=== PATIENT | male | born 1985 | race Caucasian/White ===

== ENCOUNTER 2025-03-18 11:06 | Outpatient (OUT) | payer BC, SELFPAY ==
[2025-03-18 11:27] LABS: Basophils Percent Auto 0.2 % (0.2-2.0); Eosinophils Absolute Auto 0.1 10^3/uL (0.0-0.7); Eosinophils Percent Auto 1.1 % (0.9-7.0); Immature Granulocytes Abs Auto 0.04 10^3/uL (0.00-0.03); Immature Granulocytes Pct Auto 0.3 % (0.0-0.5); Lymphocytes Absolute Auto 2.5 10^3/uL (1.2-3.8); Lymphocytes Percent Auto 20.4 % (20.5-60.0); Mean Corpuscular HGB Conc 34.8 g/dL (29.9-35.2); Mean Corpuscular Hemoglobin 33.3 pg (25.9-34.0); Mean Corpuscular Volume 95.8 fL (80.0-94.0); Mean Platelet Volume 9.1 fL (9.5-13.5); Monocytes Absolute Auto 0.8 10^3/uL (0.3-0.8); Platelet Count 263 10^3/uL (150-450); Red Cell Distribution Width 12.3 % (11.0-15.0); White Blood Count 12.5 10^3/uL (4.0-11.0)
[2025-03-18 11:44] LABS: Estimated Average Glucose 212 mg/dL
[2025-03-18 11:44] LABS: Creatinine Urine Random 418.45 mg/dL (20.00-300.00); Microalbum Creatinine Ratio Ur 14.5 mg/g (0.0-29.9); Microalbumin Urine Random 6.1 mg/dL (<=30.0)
[2025-03-18 11:52] LABS: Alanine Aminotransferase 101 U/L (16-63); Albumin Globulin Ratio 0.8; Albumin Level 3.1 g/dL (3.4-5.0); Alkaline Phosphatase 149 U/L (46-116); Anion Gap 15.3; Aspartate Amino Transferase 108 U/L (15-37); BUN Creatinine Ratio 8.9; Bilirubin Direct 0.1 mg/dL (0.0-0.2); Bilirubin Total 0.4 mg/dL (0.2-1.0); Calcium 8.7 mg/dL (8.5-10.1); Carbon Dioxide 28.4 mmol/L (21.0-32.0); Chloride 100 mmol/L (98-107); Chol HDL Ratio 3.5; Cholesterol 150 mg/dL (<=200); Estimated GFR (African America >60 (>=60 mL/min/1.73m^2); Estimated GFR (Non-African Ame >60 (>=60 mL/min/1.73m^2); Globulin 4.1 g/dL; Glucose 187 mg/dL (74-106); HDL Cholesterol 43 mg/dL (40-60); Potassium 3.7 mmol/L (3.5-5.1); Sodium 140 mmol/L (136-145); Thyroid Stimulating Hormone 2.469 uIU/mL (0.358-3.740); Total Protein 7.2 g/dL (6.4-8.2); Triglycerides 159 mg/dL (<=150); VLDL CHOLESTEROL 31.8 mg/dL
[2025-03-18 12:11] LABS: Prostate Specific Antigen Scrn 2.42 ng/mL (<=4.00)
[2025-03-19 06:38] LABS: Testosterone 264 ng/dL (264-916)
== END 2025-03-18 11:07 | disposition home or self-care (01) ==
LOC: LAB 11:10
PROVIDERS: PCP Family Medicine; Visit Provider Family Medicine
DX: Z00.00 Encounter for general adult medical examination without abnormal findings (principal); E11.65 Type 2 diabetes mellitus with hyperglycemia
CPT/HCPCS: 36415; 80048; 80061; 80076; 82043; 82570; 83036; 84403; 84443; 85025; G0103

== ENCOUNTER 2025-06-21 15:02 | Inpatient (IN) | payer BC, SELFPAY ==
--- OUTSIDE RECORDS SUMMARY | 2025-06-12 11:00 | XMS_ITS | Continuity of Care Document ---
Author Organization [facility] Address [address] [place] [address] Phone Care Team Providers Care Director [employer] Name Role Phone Lloyd Mason MD Primary Care Provider Lloyd Mason MD Attending Provider Care Teams Patient Care Team Team Status: Active Member Role Status Dates Lloyd Mason MD Primary Care Provider Active Patient Care Team Team Status: Inactive Member Role Status Dates Lloyd Mason MD Primary Care Provider Active S tart: June 12, 2025 End: June 12, 2025 Lloyd Mason MD Attending Provider Active Star t: June 12, 2025 End: June 12, 2025 Chief Complaint and Reason for Visit Chief Complaint Admit Date Established Patient June 12, 2025 1:37pm Reason for Visit Admit Date Benign essential hypertension June 12, 2025 1:37pm Class 1 obesity due to exces s calories with serious comorbidity and body ma June 12, 2025 1:37pm Hypersomnia June 12, 2025 1:37pm Type 2 diabetes mellitus wit h diabetic neuropathy, without long-term curren June 12, 2025 1:37pm Type 2 diabetes mellitus wit h hyperglycemia, without long-term current use June 12, 2025 1:37pm Allergies, Adverse Reactions, Alerts Allergen Type Severity Reaction Last Updated Verified Status lisinopril Allergy Unknown Cough June 12, 2025 1:02pm Y es Active Social History Smoking Status Status Start Date End Date Date of Observa tion Smokes tobacco daily (finding) June 12, 2025 2:18pm Observation Status Observation Response Date of Response Legal Sex Male (finding) Sex Assigned At Male December Family History Relationship Condition Age at Onset Recorded Date/T tamara mother Malignant neoplasm Unknown Problems Active Problems Medical Problem Onset Date Status Benign essential hypertension Unknown Ac tive Dyslipidemia Unknown Active Hypersomnia Unknown Active Type 2 diabetes mellitus wit h diabetic neuropathy, without long-term current use of insulin Unknown Active Type 2 diabetes mellitus wit h microalbuminuria, without long-term current use of insulin Unknown Active Type 2 diabetes mellitus wit h hyperglycemia, without long-term current use of insulin Unknown Active Class 1 obesity due to exces s calories with serious comorbidity and body mass index (BMI) of 32.0 to 32.9 in adult Unknown Active Medications Medication Status Dose Units Route Directions Qty Days St art Date Stop Date End Date Instructions Adherence Losartan 50 mg tablet Active 50 MG PO Daily 2024 12:00a m Complies with drug therapy Sildenafil 50 mg tablet Active 50 MG PO Daily as needed 2024 12:00a m administer 30 minutes to 4 hours before activity Complies with drug therapy Glipizide 10 mg tablet Active 10 MG PO Daily 2024 12:00a m Complies with drug therapy Blood Sugar Diagnostic (Blood Glucose Test) strip Active 0 .ROUTE 2024 12:00a m As directed, check Bs once daily One Touch Ultra 2 Lancets misc Active 0 .ROUTE 2024 12:00a m As directed, One Touch Ultra 2, check BS once daily Blood Ketone Glucose Monitor device Active 0 .ROUTE 2024 12:00a m As directed, One Touch Ultra 2, check BS once daily Semaglutide (Ozempic) 0.25 mg or 0.5 mg (2 mg/3 mL) pen injector Active 0 SUBCUT every week 3 2024 12:00a m 0.25 mg weekly x 4 weeks, 0.5 mg weekly Complies with drug therapy Gabapentin 300 mg capsule Active 300 MG PO Daily at bedtime 30 2024 12:00a m Complies with drug therapy Vital Signs Vital Reading Result Reference Range Collection Date/Time Height 70 [in_i] June 12, 2025 2:12pm Weight 103.13 kg June 12, 2025 2:12pm Body Temperature 98.1 [degF] 97.6-99.0 May 232024 2:12pm Heart Rate 102 /min 60-100 June 12, 2025 2:12pm Respiratory rate 18 /min 12-24 May 232024 2:12pm Oxygen saturation by Pulse oximetry 96 % 95-100 June 12, 2025 2:12pm BP Systolic 134 mm[Hg] 100-140 June 12, 2025 2:12pm BP Diastolic 80 mm[Hg] 60-100 June 12, 2025 2:12pm BMI (Body Mass Index) 32.6 kg/m2 Sept2024 2:12pm Advance Directives Advance Directive Response Recorded Date/ Time Advance Directives No August 7:33pm Insurance Providers Guarantor Reymundo Patino Address [address] [facility] [address] Contact Info. Home Phone: Payer Policy Id Subscriber's Name Subscriber Id Effectiv e Date Expiration Date Marissa CONTEH/SALVATORE [id number] Reymundo Patino [id number] Encounters Encounter Location(s) Arrival/Admit Date Discharge/Depart Date Provider(s) Departed Physician/Prov ider Office Visit -[facility] June 12, 2025 1:37pm June 12, 2025 2:59pm Lloyd Mason MD Recent Diagnosis Onset Date Admit Date Benign essential hypertension Unknown Se pt2024 1:37pm Class 1 obesity due to exces s calories with serious comorbidity and body ma Unknown June 12, 2025 1 :37pm Hypersomnia Unknown June 12, 2025 1:37pm Type 2 diabetes mellitus wit h diabetic neuropathy, without long-term curren Unknown June 12, 2 025 1:37pm Type 2 diabetes mellitus wit h hyperglycemia, without long-term current use Unknown June 12, 2025 1:3 7pm Assessments Diagnosis Onset Date Resolution Status Admit Date Benign essential hypertension acute June 12, 2025 1:37pm Class 1 obesity due to exces s calories with serious comorbidity and body ma acute 2024 1:37pm Hypersomnia acute May 1:37pm Type 2 diabetes mellitus wit h diabetic neuropathy, without long-term curren acute June 12, 2025 1:37pm Type 2 diabetes mellitus wit h hyperglycemia, without long-term current use acute June 12, 2025 1:37pm
[2025-06-21] VITALS (42 sets, daily range): BP systolic 92–161; BP diastolic 66–95; PULSE 105–140; TEMP 37–37.4; O2SAT 79–99; BMI 35.4; BMI 31.6
--- NOTE | 2025-06-21 15:07 | XR_ITS ---
The [address] [address] Patient Name: DARIUS WILSON MRN: [id number] date: 1985 Sex: M Assigned Patient Location: ED.MAIN Current Patient Location: ED.MAIN Accession/Order Number: [id number] Exam Date: 06/21/2025 16:15 Report Date: 06/21/2025 16:40 At the request of: VENUS DE LEON MD Procedure: XR chest 1V Plain film chest Single view HISTORY: Shortness of breath. Confusion. COMPARISON: None FINDINGS: SUPPORT DEVICES: None POSTSURGICAL CHANGES: None HEART: Borderline cardiomegaly PULMONARY CYNTHIA: Hilar vascular prominence MEDIASTINUM: Unremarkable LUNGS AND PLEURA: Right upper hilar apical hazy consolidation.. Apical pleural thickening. Right basilar groundglass parenchymal densities. BONY STRUCTURES: Old right rib fractures. ADDITIONAL FINDINGS None XR/XR chest 1V IMPRESSION: Cardiomegaly. Hilar vascular congestion. May represent failure. Hazy opacification of the right suprahilar apical region. Possible infiltrate. Underlying lesion not excluded. Loculated fluid collection may also be present. CT chest may be useful to further assess. Impression dictated by: Lee Slaughter M.D. 06/21/2025 4:40 PM Dictation Location[facility] Electron[facility] authenticated by: [id number] Y Date: 06/21/2025 16:40
--- NOTE | 2025-06-21 15:07 | ECG_ITS ---
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 Measurements Intervals [place] Rate: 129 P: 61 AL: 158 QRS: 84 QRSD: 90 T: 17 QT: 342 QTc: 418 Interpretive Statements 1120 Sinus tachycardia 4664 Twave abnormality, possible inferior ischemia 9150 abnormal ECG Compared to ECG 12/20/2017 07:00:50 Possible ischemia now present Electronically Signed On 06-21-2025 19:10:52 EDT by CORRY FERNANDES M.D.
[2025-06-21] MEDS: IPRATROPIUM/ALBUTEROL SULFATE 3 ML AMPUL.NEB IH ×2 (15:33→20:23)
[2025-06-21 15:37] LABS: Hematocrit 37.1 % (42.0-54.0); Hemoglobin 13.6 g/dL (14.0-18.0); Mean Corpuscular HGB Conc 36.7 g/dL (29.9-35.2); Mean Corpuscular Hemoglobin 33.4 pg (25.9-34.0); Mean Corpuscular Volume 91.2 fL (80.0-94.0); Platelet Count 198 10^3/uL (150-450); Red Blood Count 4.07 10^6/uL (4.70-6.10); White Blood Count 21.8 10^3/uL (4.0-11.0)
[2025-06-21 15:38] LABS: ABG PCO2 39.2 mmHg (35.0-45.0); PO2 ABG 81.8 mmHg (80.0-100.0)
[2025-06-21 15:39] LABS: Allen Test POSITIVE (POSITIVE); HCO3 ABG 23.5 mmol/L (22.0-26.0); Oxygen Saturation ABG 97.3 %
[2025-06-21 15:40] LABS: Liters per Minute 6; O2 Mode NC; Puncture Site LR
[2025-06-21 15:44] LABS: INR 1.15; Prothrombin Time 12.0 sec (9.0-11.6)
[2025-06-21 15:57] LABS: Alanine Aminotransferase 84 U/L (16-63); Albumin Globulin Ratio 0.3; Albumin Level 1.7 g/dL (3.4-5.0); Alkaline Phosphatase 126 U/L (46-116); Anion Gap 17.5; Aspartate Amino Transferase 168 U/L (15-37); Blood Urea Nitrogen 40.0 mg/dL (7.0-18.0); Calcium 8.1 mg/dL (8.5-10.1); Carbon Dioxide 23.7 mmol/L (21.0-32.0); Estimated GFR (African America >60 (>=60 mL/min/1.73m^2); Estimated GFR (Non-African Ame >60 (>=60 mL/min/1.73m^2); Globulin 5.6 g/dL; Glucose 199 mg/dL (74-106); Lactate/Lactic Acid 1.8 mmol/L (0.4-2.0); Potassium 3.2 mmol/L (3.5-5.1); Total Protein 7.3 g/dL (6.4-8.2)
[2025-06-21 16:01] LABS: Chloride 83 mmol/L (98-107); Sodium 121 mmol/L (136-145)
[2025-06-21 16:02] LABS: SARS-CoV-2 Ag NEGATIVE (NEGATIVE)
[2025-06-21 16:05] LABS: Glucose Urine UA NEGATIVE (NEGATIVE)
--- OUTSIDE RECORDS SUMMARY | 2025-06-21 16:05 | XMS_ITS | Encounter Summary ---
Author Organization [facility] Address [address] [place] [address] Care Team Providers Care Railroad Surveyor Name Role Phone Lloyd Mason MD Primary Care Provider [phone] Lloyd Mason MD Unavailable Encounter Details Date Type Department Care Team (Late st Contact Info) Description 03/20/2025 Results Follow-Up [facility] [address] [place] [address] Lloyd Mason MD [address] [place] [address] ALL CBC WITH AUTO DIFF, MLR HEMOGLOBIN A1C, TBH MICROALB CREAT RATIO RANDOM, Additional followed-up results: 6 Social History Tobacco Use Types Packs/Day Years Used Date Smoking Tobacco: Every Day Cigarettes 0.5 10 Smokeless Tobacco: Never Alcohol Use Standard Drinks/Week Comments Yes 0 (1 standard drink = 0.6 oz pur e alcohol) OCCASSIONALLY Sex and Gender Information Value Date Recorded Sex Assigned at Not on file Legal Sex Male 2:29 PM EDT Gender Identity Not on file Sexual Orientation Not on file documented as of this encounter Plan of Treatment Scheduled Orders Name Type Priority Associated Diagnoses Orde r Schedule US RUQ Imaging Routine Abnormal liver enzymes Expected: 03/20/2025, Expires: 03/20/2026 documented as of this encounter Visit Diagnoses Diagnosis Type 2 diabetes mellitus with hyperglycemia, without long-term current use of insulin (HCC)- Primary Abnormal liver enzymes documented in this encounter Care Teams Railroad Surveyor Relationship Specialty Start Date End Date Lloyd Mason MD PCP - General Family Medicine 10/19/24 Lloyd Mason MD [address] [place] [address] PCP - [place] [employer] 03/21/25 documented as of this encounter
--- OUTSIDE RECORDS SUMMARY | 2025-06-21 16:05 | XMS_ITS | Clinical Summary ---
Author Organization [facility] Address [address] [place] [address] Care Team Providers Care Strip Presser Name Role Phone Lloyd Mason MD Primary Care Provider [phone] Lloyd Mason MD Unavailable Allergies Active Allergy Reactions Criticality Noted Date Comments Lisinopril Cough 08/19/2023 Medications naproxen (EC Naprosyn) 500 MG EC tablet Take 500 mg by mouth in the morning and 500 mg in the evening. Take with meals. Do not crush, chew, or split. . Active Blood Glucose Monitoring Suppl device 1 Device 1 (one) time each day. Active OneTouch Ultra test strip USE 1 STRIP DAILY 2 Active Lancets (OneTouch Delica Plus [id number]) misc USE ONCE DAILY 2 Active Blood Glucose Monitoring Suppl (ONE TOUCH ULTRA 2) w/Device kit 1 (ONE) KIT CHECK BLOOD GLUCOSE DAILY 2 Active glipiZIDE (Glucotrol) 10 MG tabletIndications :Type 2 diabetes mellitus with hyperglycemia, without long-term current use of insulin (HCC) Take 1 tablet (10 mg) by mouth Daily 30 tablet 5 5 Active losartan (Cozaar) 50 MG tabletIndications :Primary hypertension Take 1 tablet (50 mg) by mouth Daily 100 tablet 1 5 10/28/19 26 Active sildenafil (Viagra) 50 MG tabletIndications :Erectile dysfunction, unspecified erectile dysfunction type TAKE 1 TABLET (50 MG) BY MOUTH DAILY 30 tablet 2 5 Active Active Problems Problem Noted Date Diagnosed Date Type 2 diabetes mellitus wit h diabetic microalbuminuria, without long-term current use of insulin 03/20/2025 Dyslipidemia 02/02/2025 Hypersomnia 02/02/2025 Assessment & Plan (02/02/2025 3:25 PM EDT): Signs of VERONA and check sleep study. Primary hypertension 08/19/2023 Assessment & Plan (02/02/2025 3:25 PM EDT): BP controlled and monitor PRN. Assessment & Plan (08/19/2023 4:27 PM EST): BP well controlled. On average less than 130/90. Tolerating Anti hypertensive w/o adverse effects. Denies lightheadedness, dizziness, syncope, presyncope. Patient encouraged to continue with home BP monitoring and call office if he experiences orthostatic symptoms or persistently elevated BP. C.w Losartan, Check CMP to ensure potassium/creatinine is normal Type 2 diabetes mellitus wit h hyperglycemia, without long-term current use of insulin 08/19/2023 Assessment & Plan (02/02/2025 3:25 PM EDT): Not checking BS and due for A1C. Stick to ADA diet and limit carbs. Assessment & Plan (08/19/2023 4:30 PM EST): On Metformin. No recent labs or A1C as he did not get his labs done. No medication adverse effects reported by the patient. Patient educated on lifestyle modifications, dietary restrictions, signs and symptoms of hypoglycemia/hyperglycemia and importance of eating regular consistent meals. Stressed upon importance of checking blood glucose at home and bring blood glucose log to appointments. All questions, concerns answered and addressed. Encouraged to call office if persistent hypoglycemia/hyperglycemia on home glucose monitoring noted. Patient will be started on Rybelsus 3mg -samples provided. Patient counseled and educated on adverse effects, drug interactions and to reach out to office/pharmacy if questions or concerns related to new medications. Will call in 7 mg PO daily dosing from 2nd month. Starting on SGLT2 due to accompanying obesity to help with weight loss. Patient is afraid of needles and would prefer PO medication rather than injectable. Class 1 obesity due to exces s calories with body mass index (BMI) of 30.0 to 30.9 in adult 08/19/2023 Assessment & Plan (02/02/2025 3:24 PM EDT): Weight loss indicated. Assessment & Plan (08/19/2023 4:38 PM EST): Patient educated on risks of increased cardiovascular morbidity/mortality and poor health outcomes associated with unhealthy bodyweight. Patient counseled on lifestyle modifications, dietary restrictions. Patient encouraged to limit caloric intake and increase physical activity. Therapeutic and surgical options reviewed with patient . Patient was offered opportunity to ask questions and address their concern. He will be started on Rybelsus to help with weight loss Abnormal liver enzymes 08/19/2023 Assessment & Plan (08/19/2023 4:31 PM EST): Abnormal liver enzymes - AST/ALT in 200 previously when he had labs but follow up testing and labs were not done by patient. Will check Liver enzymes to monitor/ and follow up. US liver in 22 -- NAFLD. Tobacco dependency 08/19/2023 Assessment & Plan (08/19/2023 4:32 PM EST): Patient counseled on smoking/tobacco cessation. Patient educated on harmful effects of smoking cigarettes/tobacco including increased risk of cardiovascular diseases, chronic lung disease and multiple cancers. Patient was educated and informed of different behavioral and therapeutic interventions that can help with smoking/tobacco use. Patient's questions/concerns were addressed and answered related to therapeutic options. Patient was offered help and encouraged to reach out to provider if/when they are ready to quit. Started on Nicotine patches/lozenges. A total of over 3 minutes and up to 10 minutes were spent on Smoking/Tobacco use counseling. Annual physical exam 08/19/2023 Assessment & Plan (02/02/2025 3:24 PM EDT): Due for labs. Discussed proper diet and regular aerobic exercise. Need aerobic exercise 5-6 days a week for 30 minutes at a time. Smaller portions and limit total calories. Colonoscopy after age 45. Tetanus every 10 years. Advised not to smoke. Assessment & Plan (08/19/2023 4:33 PM EST): Annual Wellness Exam - Refused Flu vaccine. Too young for Colon Cancer/Prostate or lung cancer screening Educated/counseled on smoking cessation, lifestyle modifications. Screen for HLD - has hx of T2DM, obesity. Erectile dysfunction 08/19/2023 Assessment & Plan (08/19/2023 4:33 PM EST): Uses viagra as needed. Works well for him. C/w same. Resolved Problems Problem Noted Date Diagnosed Date Resolved Date Screening for hyperlipidemia 08/19/2023 02/02/2025 Assessment & Plan (08/19/2023 4:30 PM EST): Patient educated on risks of increased cardiovascular morbidity/mortality and poor health outcomes associated with unhealthy bodyweight. Patient counseled on lifestyle modifications, dietary restrictions. Patient encouraged to limit caloric intake and increase physical activity. Therapeutic and surgical options reviewed with patient . Patient was offered opportunity to ask questions and address their concern. Started on Rybelsus that should help with weight loss too. Encounters Date Type Department Care Team Description 04/21/2025 Refill [facility] [address] [place] [address] Lloyd Mason MD Erectile dysfunction, unspecified erectile dysfunction type 04/11/2025 Refill [facility] [address] [place] [address] Lloyd Mason MD Primary hypertension from Last 3 Months Family History Medical History Relation Name Comments Diabetes Father Cancer Mother Relation Name Status Comments Father Alive Mother Alive Social History Tobacco Use Types Packs/Day Years Used Date Smoking Tobacco: Every Day Cigarettes 0.5 10 Smokeless Tobacco: Never Tobacco Cessation:Ready to Q uit: Yes; Counseling Given: Yes Alcohol Use Standard Drinks/Week Comments Yes 0 (1 standard drink = 0.6 oz pur e alcohol) OCCASSIONALLY Sex and Gender Information Value Date Recorded Sex Assigned at Not on file Legal Sex Male 2:29 PM EDT Gender Identity Not on file Sexual Orientation Not on file Last Filed Vital Signs Vital Sign Reading Time Taken Comments Blood Pressure 138/66 02/02/2025 1:26 PM EDT Pulse 113 02/02/2025 1:26 PM EDT Temperature 36.2 C (97.1 F) 02/02/2025 1:26 PM EDT Respiratory Rate 20 02/02/2025 1:26 PM EDT Oxygen Saturation 96% 02/02/2025 1:26 PM EDT Inhaled Oxygen Concentration - - Weight 97.5 kg (215 lb) 02/02/2025 1:26 PM EDT Height 177.8 cm (5' 10 ) 02/02/2025 1:26 PM EDT Body Mass Index 30.85 02/02/2025 1:26 PM EDT Plan of Treatment Health Maintenance Due Date Last Done Comments Diabetes: Hemoglobin A1C 1985 Diabetes: Retinopathy Screening 1993 Influenza Vaccine (#1) 2025 Diabetes: Urine Protein Screening 03/18/2026 025 Insurance BCBS Care Teams Strip Presser Relationship Specialty Start Date End Date Lloyd Mason MD PCP - General Family Medicine 10/19/24 Lloyd Mason MD [address] [place] [address] PCP - [place] [employer] 03/21/25
--- OUTSIDE RECORDS SUMMARY | 2025-06-21 16:05 | XMS_ITS | Encounter Summary ---
Author Organization [facility] Address [address] [place] [address] Care Team Providers Care Furnace Tender Name Role Phone Lloyd Mason MD Primary Care Provider [phone] Lloyd Mason MD Unavailable Encounter Details Date Type Department Care Team (Late st Contact Info) Description 03/20/2025 Orders Only [facility] [address] [place] [id number] Lloyd Mason MD [address] [place] [address] Social History Tobacco Use Types Packs/Day Years [...] as of this encounter Plan of Treatment Not on file documented as of this encounter Visit Diagnoses Not on filedocumented in this encounter Care Teams Furnace Tender Relationship Specialty Start Date End Date Lloyd Mason MD PCP - General Family Medicine 10/19/24 Lloyd Mason MD [address] [place] [address] PCP - [place] [employer] 03/21/25 documented as of this encounter
[2025-06-21 16:06] LABS: Basophils Abs Manual 0.00 10^3/uL (0.00-0.10); Basophils Percent Manual 0.0 % (0.2-2.0); Eosinophils Absolute Manual 0.00 10^3/uL (0.00-0.70); Eosinophils Percent Manual 0.0 % (0.9-7.0); Lymphocytes Absolute Manual 0.43 10^3/uL (1.20-3.80); Lymphocytes Percent Manual 2.0 % (20.5-60.0); Monocytes Absolute Manual 0.87 10^3/uL (0.30-0.80); Monocytes Percent Manual 4.0 % (1.7-12.0); Segmented Neut Absolute Manual 20.49 10^3/uL (1.4-6.5); Segmented Neutrophils % Manual 94.0 (43.0-75.0)
[2025-06-21 16:17] LABS: Cast Seen? SEEN #/LPF (NONE SEEN); Crystals Seen? Seen #/HPF (None Seen)
[2025-06-21 16:18] LABS: Urine Culture Indicated YES-FRMC
--- NOTE | 2025-06-21 16:46 | CT_ITS ---
The [address] [address] Patient Name: DARIUS WILSON MRN: [id number] date: 1985 Sex: M Assigned Patient Location: ER Current Patient Location: .MAIN Accession/Order Number: [id number] Exam Date: 06/21/2025 17:05 Report Date: 06/21/2025 17:49 At the request of: VENUS DE LEON MD Procedure: CT angio chest Unenhanced head CT TECHNIQUE: Contiguous axial imaging of the head. The CT exam was performed using one or more the following dose reduction techniques: Automated exposure control, adjustment of the MA and/or Kv according to patient size, or use of the iterative reconstruction technique. COMPARISON: None HISTORY: Shortness of breath. Confusion. VENTRICLES: Within normal limits ATROPHY: None BRAIN PARENCHYMA: Adequate whyte-white matter differentiation identified. HEMORRHAGE: None HERNIATION: No mass effect or herniation INFARCTION: No recent vascular distribution infarction is seen. EXTRA-AXIAL FLUID COLLECTIONS None MIDBRAIN: Unremarkable ALONDRA: Unremarkable MEDULLA: Unremarkable SINUSES: Unremarkable ORBITS: Grossly unremarkable MASTOIDS: Unremarkable BONY STRUCTURES Intact ADDITIONAL FINDINGS: Low-density defect identified in the posterior portion of the superior sagittal sinus. This should be assessed for thrombus. CT/CT angio chest IMPRESSION: Hypodensity defect identified in the posterior portion of superior sagittal sinus. Assessment for thrombus should be considered. May consider contrasted MRI with MRV. Impression dictated by: Lee Slaughter M.D. 06/21/2025 5:49 PM CTA Chest with PE protocol TECHNIQUE: Axial imaging with 2-D and 3-D reconstruction. The CT exam was performed using one or more the following dose reduction techniques: Automated exposure control, adjustment of the MA and/or Kv according to patient size, or use of the iterative reconstruction technique. History: Shortness of breath. Hypoglycemia. COMPARISON: None THYROID: Unremarkable TRACHEA AND BRONCHI: Patent ESOPHAGUS: Unremarkable. HEART: Borderline prominent with large amount of epicardial fat. PERICARDIAL EFFUSION: None CORONARY ARTERY CALCIFICATION: None MEDIASTINUM: Mildly prominent right paratracheal lymph nodes. PULMONARY CYNTHIA: Mildly prominent right hilar lymph nodes. THORACIC AORTA Unremarkable PULMONARY EMBOLUS: None LUNG NODULE None LUNGS: Large amount of consolidation throughout the right upper lobe. Minimal foci of air in the periphery. May correspond with subpleural bullous/cystic changes. Adequate opacification of bronchi. No obvious fluid collection or mass type lesion. Groundglass parenchymal densities of the right middle and right lower lobe. Groundglass type densities of the left perihilar and left basilar region. PLEURAL EFFUSION: None PNEUMOTHORAX: No pneumothorax seen. CHEST WALL: No abnormality AXILLA: Unremarkable BONY STRUCTURES Intact UPPER ABDOMEN: Hepatic steatosis. IMPRESSION: No acute pulmonary embolus. Right upper lobe are infiltrate. Focal infiltrate in the right middle and right lower lobe and the perihilar and basilar region. Right paratracheal and right hilar lymphadenopathy likely reactive. Continued follow-up assessment to ensure resolution recommended. Dictation Location: [employer] Electronically authenticated by: [id number] Y Date: 06/21/2025 17:49
--- NOTE | 2025-06-21 16:46 | CT_ITS ---
The [address] [address] Patient Name: DARIUS WILSON MRN: [id number] date: 1985 Sex: M Assigned Patient Location: ER Current Patient Location: .MAIN Accession/Order Number: [id number] Exam Date: 06/21/2025 17:05 Report Date: 06/21/2025 17:49 At the request of: VENUS DE LEON MD Procedure: CT angio chest Unenhanced head CT TECHNIQUE: Contiguous axial imaging of the head. The CT exam was performed using one or more the following dose reduction techniques: Automated exposure control, adjustment of the MA and/or Kv according to patient size, or use of the iterative reconstruction technique. COMPARISON: None HISTORY: Shortness of breath. Confusion. VENTRICLES: Within normal limits ATROPHY: None BRAIN PARENCHYMA: Adequate whyte-white matter differentiation identified. HEMORRHAGE: None HERNIATION: No mass effect or herniation INFARCTION: No recent vascular distribution infarction is seen. EXTRA-AXIAL FLUID COLLECTIONS None MIDBRAIN: Unremarkable ALONDRA: Unremarkable MEDULLA: Unremarkable SINUSES: Unremarkable ORBITS: Grossly unremarkable MASTOIDS: Unremarkable BONY STRUCTURES Intact ADDITIONAL FINDINGS: Low-density defect identified in the posterior portion of the superior sagittal sinus. This should be assessed for thrombus. CT/CT head/brain wo con IMPRESSION: Hypodensity defect identified in the posterior portion of superior sagittal sinus. Assessment for thrombus should be considered. May consider contrasted MRI with MRV. Impression dictated by: Lee Slaughter M.D. 06/21/2025 5:49 PM CTA Chest with PE protocol TECHNIQUE: Axial imaging with 2-D and 3-D reconstruction. The CT exam was performed using one or more the following dose reduction techniques: Automated exposure control, adjustment of the MA and/or Kv according to patient size, or use of the iterative reconstruction technique. History: Shortness of breath. Hypoglycemia. COMPARISON: None THYROID: Unremarkable TRACHEA AND BRONCHI: Patent ESOPHAGUS: Unremarkable. HEART: Borderline prominent with large amount of epicardial fat. PERICARDIAL EFFUSION: None CORONARY ARTERY CALCIFICATION: None MEDIASTINUM: Mildly prominent right paratracheal lymph nodes. PULMONARY CYNTHIA: Mildly prominent right hilar lymph nodes. THORACIC AORTA Unremarkable PULMONARY EMBOLUS: None LUNG NODULE None LUNGS: Large amount of consolidation throughout the right upper lobe. Minimal foci of air in the periphery. May correspond with subpleural bullous/cystic changes. Adequate opacification of bronchi. No obvious fluid collection or mass type lesion. Groundglass parenchymal densities of the right middle and right lower lobe. Groundglass type densities of the left perihilar and left basilar region. PLEURAL EFFUSION: None PNEUMOTHORAX: No pneumothorax seen. CHEST WALL: No abnormality AXILLA: Unremarkable BONY STRUCTURES Intact UPPER ABDOMEN: Hepatic steatosis. IMPRESSION: No acute pulmonary embolus. Right upper lobe are infiltrate. Focal infiltrate in the right middle and right lower lobe and the perihilar and basilar region. Right paratracheal and right hilar lymphadenopathy likely reactive. Continued follow-up assessment to ensure resolution recommended. Dictation Location: [facility] Electronically authenticated by: [id number] Y Date: 06/21/2025 17:49
[2025-06-21] MEDS: PIPERACILLIN SODIUM/TAZOBACTAM 4.5 GM in 0.9 % SODIUM CHLORIDE 50 ML IV (17:19)
--- NOTE | 2025-06-21 17:29 | ED_ITS ---
HPI - SOB/Dyspnea General Chief Complaint: Shortness of Breath/Dyspnea Stated Complaint: POSSIBLE STROKE Time Seen by Provider: 06/21/25 15:07 Source: patient Mode of arrival: Wheelchair History of Present Illness HPI Narrative: The patient have history of hypertension as well as history of smoking cigarettes is presenting to us after he has been having for the last few days nausea vomiting diarrhea and then exacerbated over the last 2 days with shortness of breath and cough, the patient actively wheezing upon arrival using accessory muscles and hypoxemic at 85% on room air The patient denies any chest pain denies any abdominal pain no nausea or vomiting right now all the symptoms resolved except for the shortness of breath Patient have a history of smoking cigarettes He was brought to us because the mother noted that the patient has not been answering appropriately question as possibly being confused since yesterday Related Data Home Medications ?Medication ?Instructions ?Recorded ?Confirmed gabapentin 300 mg capsule 300 mg PO .qhs 06/21/2510/15 losartan 50 mg tablet 50 mg PO DAILY 06/21/2510/15 Allergies Allergy/AdvReac Type Severity Reaction Status Date / Time No Known Drug Allergies Allergy Verified 06/21/25 15:11 Review of Systems ROS Status of ROS 10 or more systems reviewed and unremark able except as noted in history and below [facility] Medical History (Updated 06/21/25 @ 18:37 by Mariola Sullivan RN) High blood pressure ?I10 - Essential (primary) hypertension (ICD-10) Diabetes ?E11.9 - Type 2 diabetes mellitus without complications (ICD-10) Exam Narrative Exam Narrative: Nurses notes and vital signs reviewed and patient is not hypoxic. General: Dehydrated mild distress due to shortness of breath Skin: Warm, dry, no pallor noted. No rash. Head: Normocephalic, atraumatic. Cardiovascular: Regular Rate and Rhythm without murmur, gallop or rub. Respiratory: The patient have bilateral expiratory lung wheezing to both lung stewart Back: No midline thoracic or lumbar vertebral tenderness. No CVA tenderness Musculoskeletal: normal ROM, no calf or popliteal tenderness, no lower extremity edema/swelling GI: Abdomen is soft, non-distended. Normal bowel sounds. No masses appreciated. No tenderness to palpation. No rebound, guarding, or rigidity noted. Neurological: A&O x4. No cranial nerve dysfunction observed. No truncal ataxia. Moves all extremities. Sensation intact. Psychiatric: Cooperative and interactive. Normal mood and affect. Constitutional Vital Signs, click to edit/add: Last Vital Signs Temp 98.7 F 06/21/25 15:05 Pulse 131 H 06/21/25 18:00 Resp 24 H 06/21/25 18:00 BP 133/75 06/21/25 18:00 Pulse Ox 96 06/21/25 18:00 O2 Del Method Nasal Cannula 06/21/25 15:34 O2 Flow Rate 6 06/21/25 15:34 FiO2 50 06/21/25 16:57 Course Vital Signs Vital signs: Vital Signs Temperature 98.7 F 06/21/25 15:05 Pulse Rate 110 H 06/21/25 15:05 Respiratory Rate 28 H 06/21/25 15:05 Blood Pressure 116/73 06/21/25 15:05 Pulse Oximetry 80 L 06/21/25 15:05 Oxygen Delivery Method Room Air 06/21/25 15:05 Temperature 98.7 F 06/21/25 15:05 Pulse Rate 131 H 06/21/25 18:00 Respiratory Rate 24 H 06/21/25 18:00 Blood Pressure 133/75 06/21/25 18:00 Pulse Oximetry 96 06/21/25 18:00 Oxygen Delivery Method Nasal Cannula 06/21/25 15:34 Oxygen Delivery Flow Rate 6 06/21/25 15:34 Fraction of Inspired Oxygen 50 06/21/25 16:57 MDM - SOB/Dyspnea MDM Narrative Medical decision making narrative: The patient EKG in the ER showing sinus tachycardia with a heart rate of 129 initially as well as 132 repeated twice to make sure there is no EKG changes there is some T wave inversion lead III No ST elevation The patient chest x-ray showed definite bilateral infiltrate most pronounced on the right side and the patient blood workup confirmed that with a CBC that is elevated at 21.8 the patient also had a hyponatremia with a 121 sodium 3.2 potassium as well as a chloride of 83 the blood sugar was 199 Patient ABGs which was at pH of 7.38 pCO2 with 39 pO2 was 81 on 6 L nasal cannula The patient initially was started back on Zosyn to cover for pneumonia after obtaining blood culture he also was covered for COPD with Solu-Medrol as well as DuoNeb The patient also placed on CPAP initially due to the concern of possible congestion and the fact that the patient have bilateral infiltrate CT angio of the chest showed no PE but the patient have bilateral infiltrate and right now the patient was provided with IV fluid 2 L IV normal saline The patient troponin initially was 190 the second troponin was 153 and he does not have any chest pain or any significant EKG changes concerning for acute coronary syndrome The patient placed on the Vapotherm after initially was on CPAP The patient case was discussed with and he agreed on admitting the patient for further evaluation Lab Data Labs: Lab Results 06/21/25 06/21/25 06/21/25 Range/Units 15:10 15:13 15:15 WBC 21.8 H (4.0-11.0) 10^3/uL RBC 4.07 L (4.70-6.10) 10^6/uL Hgb 13.6 L (14.0-18.0) g/dL Hct 37.1 L (42.0-54.0) % MCV 91.2 (80.0-94.0) fL MCH 33.4 (25.9-34.0) pg MCHC 36.7 H (29.9-35.2) g/dL RDW 12.3 (11.0-15.0) % Plt Count 198 (150-450) 10^3/uL MPV 11.2 (9.5-13.5) fL Seg Neuts % (Manual) 94.0 H (43.0-75.0) Lymphocytes % (Manual) 2.0 L (20.5-60.0) % Monocytes % (Manual) 4.0 (1.7-12.0) % Eosinophils % (Manual) 0.0 L (0.9-7.0) % Basophils % (Manual) 0.0 L (0.2-2.0) % Neutrophils # (Manual) 20.49 H (1.4-6.5) 10^3/uL Lymphocytes # (Manual) 0.43 L (1.20-3.80) 10^3/uL Monocytes # (Manual) 0.87 H (0.30-0.80) 10^3/uL Eosinophils # (Manual) 0.00 (0.00-0.70) 10^3/uL Basophils # (Manual) 0.00 (0.00-0.10) 10^3/uL PT 12.0 H (9.0-11.6) sec INR 1.15 Puncture Site ABG pH (7.350-7.450) ABG pCO2 (35.0-45.0) mmHg ABG pO2 (80.0-100.0) mmHg ABG HCO3 (22.0-26.0) mmol/L ABG O2 Saturation % ABG Base Excess (-2.0-2.0) mmol/L Nacho Test (POSITIVE) O2 Liters/Min Sodium 121 L* (136-145) mmol/L Potassium 3.2 L (3.5-5.1) mmol/L Chloride 83 L* (98-107) mmol/L Carbon Dioxide 23.7 (21.0-32.0) mmol/L Anion Gap 17.5 BUN 40.0 H (7.0-18.0) mg/dL Creatinine 1.20 (0.70-1.30) mg/dL Est GFR ( Amer) >60 (>=60 mL/min/1.73m^2) Est GFR (Non-Af Amer) >60 (>=60 mL/min/1.73m^2) BUN/Creatinine Ratio 33.3 Glucose 199 H (74-106) mg/dL Lactate 1.8 (0.4-2.0) mmol/L Calcium 8.1 L (8.5-10.1) mg/dL Total Bilirubin 0.6 (0.2-1.0) mg/dL AST 168 H (15-37) U/L ALT 84 H (16-63) U/L Alkaline Phosphatase 126 H (46-116) U/L Troponin I High Sens 169.1 H* (4.0-76.1) pg/mL NT-Pro-B Natriuret Pep 1334.0 H* (<=450.0) pg/mL Total Protein 7.3 (6.4-8.2) g/dL Albumin 1.7 L (3.4-5.0) g/dL Globulin 5.6 g/dL Albumin/Globulin Ratio 0.3 Urine Color (YELLOW) Urine Clarity (CLEAR) Urine pH (5.0-9.0) Ur Specific Marshall (1.005-1.025) Urine Protein (NEG/TRACE) mg/dL Urine Glucose (UA) (NEGATIVE) mg/dL Urine Ketones (NEGATIVE) mg/dL Urine Occult Blood (NEGATIVE) Urine Nitrite (NEGATIVE) Urine Bilirubin (NEGATIVE) Urine Urobilinogen (0.2-1.0) EU/dL Ur Leukocyte Esterase (NEGATIVE) Urine RBC (0-2) #/HPF Urine WBC (NONE SEEN) #/HPF Ur Squamous Epith Cells (NONE/RARE) #/LPF Urine Crystals (None Seen) #/HPF Amorphous Sediment Urine Bacteria (NONE SEEN) #/HPF Urine Casts (NONE SEEN) #/LPF Hyaline Casts Coarse Granular Casts Urine Mucus (NONE SEEN) Ur Culture Indicated? Ethanol Quant <3 mg/dL Influenza Type A Ag Negative Influenza Type B Ag Negative SARS-CoV-2 Ag (CV2AG) Negative (NEGATIVE) POC Glucose 206 H (74-106) mg/dL 06/21/25 06/21/25 06/21/25 Range/Units 15:28 15:50 17:53 WBC (4.0-11.0) 10^3/uL RBC (4.70-6.10) 10^6/uL Hgb (14.0-18.0) g/dL Hct (42.0-54.0) % MCV (80.0-94.0) fL MCH (25.9-34.0) pg MCHC (29.9-35.2) g/dL RDW (11.0-15.0) % Plt Count (150-450) 10^3/uL MPV (9.5-13.5) fL Seg Neuts % (Manual) (43.0-75.0) Lymphocytes % (Manual) (20.5-60.0) % Monocytes % (Manual) (1.7-12.0) % Eosinophils % (Manual) (0.9-7.0) % Basophils % (Manual) (0.2-2.0) % Neutrophils # (Manual) (1.4-6.5) 10^3/uL Lymphocytes # (Manual) (1.20-3.80) 10^3/uL Monocytes # (Manual) (0.30-0.80) 10^3/uL Eosinophils # (Manual) (0.00-0.70) 10^3/uL Basophils # (Manual) (0.00-0.10) 10^3/uL PT (9.0-11.6) sec INR Puncture Site Lr ABG pH 7.385 (7.350-7.450) ABG pCO2 39.2 (35.0-45.0) mmHg ABG pO2 81.8 (80.0-100.0) mmHg ABG HCO3 23.5 (22.0-26.0) mmol/L ABG O2 Saturation 97.3 % ABG Base Excess -1.6 (-2.0-2.0) mmol/L Nacho Test Positive (POSITIVE) O2 Liters/Min 6 Sodium (136-145) mmol/L Potassium (3.5-5.1) mmol/L Chloride (98-107) mmol/L Carbon Dioxide (21.0-32.0) mmol/L Anion Gap BUN (7.0-18.0) mg/dL Creatinine (0.70-1.30) mg/dL Est GFR ( Amer) (>=60 mL/min/1.73m^2) Est GFR (Non-Af Amer) (>=60 mL/min/1.73m^2) BUN/Creatinine Ratio Glucose (74-106) mg/dL Lactate (0.4-2.0) mmol/L Calcium (8.5-10.1) mg/dL Total Bilirubin (0.2-1.0) mg/dL AST (15-37) U/L ALT (16-63) U/L Alkaline Phosphatase (46-116) U/L Troponin I High Sens 153.8 H* (4.0-76.1) pg/mL NT-Pro-B Natriuret Pep (<=450.0) pg/mL Total Protein (6.4-8.2) g/dL Albumin (3.4-5.0) g/dL Globulin g/dL Albumin/Globulin Ratio Urine Color Yellow (YELLOW) Urine Clarity Clear (CLEAR) Urine pH 6.0 (5.0-9.0) Ur Specific Marshall 1.025 (1.005-1.025) Urine Protein 100 A (NEG/TRACE) mg/dL Urine Glucose (UA) Negative (NEGATIVE) mg/dL Urine Ketones Trace A (NEGATIVE) mg/dL Urine Occult Blood Large A (NEGATIVE) Urine Nitrite Negative (NEGATIVE) Urine Bilirubin Negative (NEGATIVE) Urine Urobilinogen 1.0 (0.2-1.0) EU/dL Ur Leukocyte Esterase Trace A (NEGATIVE) Urine RBC 2-5 A (0-2) #/HPF Urine WBC 2-5 A (NONE SEEN) #/HPF Ur Squamous Epith Cells Few A (NONE/RARE) #/LPF Urine Crystals Seen A (None Seen) #/HPF Amorphous Sediment Few Urine Bacteria Small A (NONE SEEN) #/HPF Urine Casts Seen A (NONE SEEN) #/LPF Hyaline Casts Rare Coarse Granular Casts Moderate Urine Mucus Trace A (NONE SEEN) Ur Culture Indicated? Yes-[facility] [place] Ethanol Quant mg/dL Influenza Type A Ag Influenza Type B Ag SARS-CoV-2 Ag (CV2AG) (NEGATIVE) POC Glucose (74-106) mg/dL Discharge Plan Discharge Chief Complaint: Shortness of Breath/Dyspnea Clinical Impression: Pneumonia, Hypoxemia, Acute hyponatremia Patient Disposition: Admitted As Inpatient Time of Disposition Decision: 17:47
--- NOTE | 2025-06-21 17:47 | ECG_ITS ---
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 Measurements Intervals [place] Rate: 132 P: 69 NV: 152 QRS: 88 QRSD: 88 T: 25 QT: 332 QTc: 410 Interpretive Statements 1120 Sinus tachycardia [address] elevation 4664 Twave abnormality, possible inferior ischemia 9150 abnormal ECG Compared to ECG 06/21/2025 15:11:14 ST (T wave) deviation now present Possible ischemia still present Electronically Signed On 06-21-2025 19:10:37 EDT by CORRY FERNANDES M.D.
[2025-06-21 18:00] LABS: NT Pro B Type Natriuretic Pept 1334.0 pg/mL (<=450.0)
[2025-06-21] MEDS: METHYLPREDNISOLONE SOD SUCC PF 125 MG/2 ML VIAL IVP (18:00)
[2025-06-21] MEDS: 0.9 % SODIUM CHLORIDE 1,000 ML 500 ML IV (18:02)
[2025-06-21] MEDS: VANCOMYCIN HCL 1,500 MG in 0.9 % SODIUM CHLORIDE 500 ML 250 MG IV (18:02)
[2025-06-21] MEDS: 0.9 % SODIUM CHLORIDE 1,000 ML 1000 ML IV (19:18)
[2025-06-21] MEDS: METOPROLOL TARTRATE 25 MG TABLET PO (21:18)
[2025-06-21] MEDS: 0.9 % SODIUM CHLORIDE 1,000 ML 75 ML IV (21:18)
[2025-06-21] MEDS: POTASSIUM CHLORIDE 10 MEQ ER TABLET 40 MEQ PO (21:18)
[2025-06-21] MEDS: ASPIRIN 81 MG TABLET.DR PO (21:18)
[2025-06-21] MEDS: GUAIFENESIN 200 MG/DEXTROMETHORPHAN 20 MG 10 ML UNIT DOSE CUP PO (21:19)
[2025-06-21] MEDS: ENOXAPARIN SODIUM 40 MG/0.4 ML SYRINGE SUBQ (21:19)
[2025-06-21] MEDS: AZITHROMYCIN 500 MG in 0.9 % SODIUM CHLORIDE 250 ML 250 MG IV (21:19)
[2025-06-21] MEDS: METOCLOPRAMIDE HCL 10 MG/2 ML VIAL 5 MG IVP (21:19)
[2025-06-21] MEDS: INSULIN GLARGINE 300 UNIT/3 ML INSULN.PEN 20 UNIT SQ (22:08)
[2025-06-21] MEDS: INSULIN ASPART 300 UNIT/3 ML PEN SUBQ (22:09)
[2025-06-21 22:10] LABS: Anion Gap 17.2; Blood Urea Nitrogen 41.0 mg/dL (7.0-18.0); Calcium 7.3 mg/dL (8.5-10.1); Carbon Dioxide 21.3 mmol/L (21.0-32.0); Chloride 89 mmol/L (98-107); Estimated GFR (African America >60 (>=60 mL/min/1.73m^2); Estimated GFR (Non-African Ame >60 (>=60 mL/min/1.73m^2); Glucose 282 mg/dL (74-106); Potassium 3.5 mmol/L (3.5-5.1)
[2025-06-21] MEDS: GABAPENTIN 300 MG CAPSULE PO (22:10)
[2025-06-21 22:23] LABS: Sodium 124 mmol/L (136-145)
[2025-06-21] MEDS: ACETAMINOPHEN 325 MG TABLET 650 MG PO (23:46)
[2025-06-22] VITALS (35 sets, daily range): BP systolic 88–151; BP diastolic 63–98; PULSE 15–119; RESP 16; TEMP 36.3–37.4; O2SAT 91–99
[2025-06-22] MEDS: PIPERACILLIN SODIUM/TAZOBACTAM 3.375 GM in 0.9 % SODIUM CHLORIDE 50 ML IV ×2 (01:36→10:19)
[2025-06-22 03:15] LABS: Allen Test POSITIVE (POSITIVE); HCO3 ABG 22.4 mmol/L (22.0-26.0); Liters per Minute 40; O2 Mode VAPOTHERM; Oxygen Saturation ABG 92.0 %; PO2 ABG 73.0 mmHg (80.0-100.0)
[2025-06-22 03:16] LABS: Puncture Site L RADIAL
[2025-06-22 03:17] LABS: ABG PCO2 67.4 mmHg (35.0-45.0)
[2025-06-22 05:08] LABS: Hematocrit 34.6 % (42.0-54.0); Hemoglobin 12.1 g/dL (14.0-18.0); Mean Corpuscular HGB Conc 35.0 g/dL (29.9-35.2); Mean Corpuscular Hemoglobin 33.3 pg (25.9-34.0); Mean Corpuscular Volume 95.3 fL (80.0-94.0); Platelet Count 215 10^3/uL (150-450); Red Blood Count 3.63 10^6/uL (4.70-6.10); White Blood Count 23.4 10^3/uL (4.0-11.0)
[2025-06-22 05:25] LABS: Alanine Aminotransferase 81 U/L (16-63); Albumin Globulin Ratio 0.3; Albumin Level 1.4 g/dL (3.4-5.0); Alkaline Phosphatase 144 U/L (46-116); Anion Gap 18.2; Aspartate Amino Transferase 185 U/L (15-37); Blood Urea Nitrogen 57.0 mg/dL (7.0-18.0); Calcium 7.5 mg/dL (8.5-10.1); Carbon Dioxide 21.4 mmol/L (21.0-32.0); Chloride 93 mmol/L (98-107); Estimated GFR (African America 51 (>=60 mL/min/1.73m^2); Estimated GFR (Non-African Ame 42 (>=60 mL/min/1.73m^2); Globulin 5.3 g/dL; Glucose 271 mg/dL (74-106); Potassium 4.6 mmol/L (3.5-5.1); Sodium 128 mmol/L (136-145); Total Protein 6.7 g/dL (6.4-8.2)
[2025-06-22 05:35] LABS: Thyroid Stimulating Hormone 0.907 uIU/mL (0.358-3.740)
[2025-06-22 05:36] LABS: Magnesium 3.7 mg/dL (1.8-2.4)
[2025-06-22 05:57] LABS: Allen Test POSITIVE (POSITIVE); BIPAP Pressure 16/8; HCO3 ABG 21.9 mmol/L (22.0-26.0); O2 Mode BIPAP; Oxygen Saturation ABG 96.5 %; PO2 ABG 84.7 mmHg (80.0-100.0); Puncture Site L RADIAL
[2025-06-22 05:58] LABS: ABG PCO2 51.0 mmHg (35.0-45.0)
--- NOTE | 2025-06-22 07:00 | CA_ITS ---
Patient Name: DARIUS WILSON MR#: [id number] : 1985 Exam Date: 06/22/2025 Ordering Doctor: ALYSIA HENRY ECHOCARDIOGRAM REPORT PROCEDURE: CA ECHO DOPPLER COMPLETE INDICATIONS: CAD, CHF, Respiratory distress COMPARISON: None. DESCRIPTION: COMPLETE ECHOCARDIOGRAM Real-time transthoracic echocardiography with 2D, M-mode, spectral and color flow Doppler performed. QUALITY: Technical quality was limited. Due to patient condition. LEFT VENTRICLE: Normal chamber size. Borderline left ventricular hypertrophy. Global left ventricular systolic function is normal. LV EF: Visual estimation of left ventricular ejection fraction is 55%. DIASTOLIC: ATRIAL SEPTUM: Not evaluated. LEFT ATRIUM: Normal chamber size. RIGHT ATRIUM: Mild dilatation. RIGHT VENTRICLE: Mild dilatation. Decreased right ventricular systolic function. Frias sign is present suggestive of acute pulmonary embolism. TRICUSPID VALVE: Normal mobility and thickness. No stenosis with trivial regurgitation. Unable to assess right-sided pressures due to lack of measurable tricuspid regurgitation. MITRAL VALVE: Normal mobility and thickness. No evidence of mitral valve stenosis. There is no mitral annular calcification. No mitral regurgitation. AORTIC VALVE: Normal trileaflet appearance. No visible sclerosis. Normal leaflet mobility. No evidence of aortic valve stenosis. No aortic regurgitation. AORTIC ROOT: Normal diameter and appearance, measuring 3.1 cm. The ascending aorta is normal in size, measuring 2.6 cm. PULMONIC VALVE: Normal thickness and mobility. No stenosis. Mild regurgitation. PERICARDIUM: No evidence of pericardial effusion. IVC: Normal size with no collapse PLEURA: CONCLUSION: 1. Borderline left ventricular hypertrophy with normal systolic function. Estimated LVEF is 55%. 2. The right ventricle is mildly dilated with reduced systolic function. Frias sign is present suggestive of possible acute pulmonary embolism. 3. No significant valvular dysfunction. 4. Unable to assess right-sided pressures due to lack of measurable tricuspid regurgitation. 5. Further imaging to evaluate for acute pulmonary embolism is strongly recommended. Adult Echocardiography Procedure Report Left Ventricle LVEDD (3.7 - 5.6 cm): 4.48 cm LVESD (2.2 - 4.0 cm): 2.93 cm LVIVS thickness (0.6 - 1.2 cm): 1.17 cm LVPW thickness (0.5 - 1.0 cm): 1.03 cm LVOT Max Gradient: 2.42 mm[Hg] LVOT Area (cm2): 0.78 m/s Peak Velocity (LVOT): 0.78 m/s Mean Velocity (LVOT): 0.62 m/s LVOT Diameter 2.12 cm Left Ventricular Ejection Fraction: 55 % Left Atrium LA Volume Index (2D A2C): 24.24 ml/m2 Left Atrium Systolic Dimension: 3.56 cm Mitral Valve MV E to A Ratio: 1.48, 1.47, 1.32 Mitral Valve A-Wave Peak Velocity: 0.41 m/s Mitral Valve E-Wave Peak Velocity: 0.58 m/s Right Ventricle RV Internal Diastolic Dimension: 4.46 cm Aorta AO Root Diam: 3.10 cm Ascending Ao Diam: 2.56 cm Aortic Valve AoV Area (Peak David): 2.89 cm2, 2.89 cm2 AoV Area (VTI): 3.33 cm2, 3.33 cm2 Peak Velocity(Antegrade Flow): 0.95 m/s Peak Gradient(Antegrade Flow): 3.61 mm[Hg] Mean Velocity(Antegrade Flow): 0.67 m/s Mean Gradient(Antegrade Flow): 2.04 mm[Hg] Velocity Time Integral: 17.60 cm Tricuspid Valve Peak Velocity (Regurgitant Flow): 1.91 m/s, 1.85 m/s, 2.24 m/s Pulmonic Valve Peak Velocity: 0.86 m/s Peak Gradient: 3.53 mm[Hg], 2.45 mm[Hg] Right Atrium Right Atrium Systolic Pressure: 59.11 ml, 59.11 ml Dictated by: Dru Pham M.D. on 06/22/2025 at 09:21 Approved by: Dru Pham M.D. on 06/22/2025 at 09:29
--- NOTE | 2025-06-22 07:25 | PC.NURSE ---
LATE ENTRY Previous RN Tierra Moreland RN and this RN at bedside, pt is aggitated and restless trying to pull bipap mask off. Attempted to redirect but made patient increasingly agitated. Dr. Ernandez in at bedside and order 5mg of Valium IVP x 1 and a solorio catheter to be placed.
--- NOTE | 2025-06-22 07:30 | ECG_ITS ---
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 Measurements Intervals [place] Rate: 88 P: 61 SC: 158 QRS: 62 QRSD: 84 T: 36 QT: 370 QTc: 416 Interpretive Statements 1100 Sinus rhythm 8102 Low QRS voltage in chest leads 9120 atypical ECG Compared to ECG 06/21/2025 16:09:53 Low QRS voltage now present Sinus tachycardia no longer present ST (T wave) deviation no longer present Possible ischemia no longer present Electronically Signed On 06-22-2025 11:47:40 EDT by CORRY FERNANDES M.D.
[2025-06-22] MEDS: DIAZEPAM 10 MG/2 ML SYRINGE 5 MG IV (07:32)
[2025-06-22] MEDS: INSULIN ASPART 300 UNIT/3 ML PEN SUBQ ×2 (08:25→11:44)
[2025-06-22] MEDS: ENOXAPARIN SODIUM 40 MG/0.4 ML SYRINGE SUBQ ×2 (08:27→10:17)
[2025-06-22] MEDS: IPRATROPIUM/ALBUTEROL SULFATE 3 ML AMPUL.NEB IH (08:28)
--- NOTE | 2025-06-22 08:39 | PM.HP ---
HPI H&P: HPI History of Present Illness Chief complaint: Hypoxemia Pneumonia hypontremia Narrative: Mr. Patino is a 40-year-old gentleman with a history of hypertension and diabetes. Patient came into the emergency room yesterday with shortness of breath. He was found to have respiratory failure and bilateral pneumonia. Patient was also found to have hyponatremia. Sodium level was 121. Potassium 3.2. White count 21,000. Lactic is 1.8. Creatinine is 1.2. Patient has slight elevation of the transaminases. Normal bilirubin. Troponin was 169. Repeat troponin is 123. BNP was 1300. EKG showed sinus tachycardia. Patient was placed on high flow oxygen and this morning switched to BiPAP due to hypercapnia and respiratory acidosis. Patient became restless and combative trying to take his BiPAP off. Opioid HPI Opioid Management Most Recent Pain and Opioid Data: Last Pain Assessment 06/21/25, 20:00 Last MAR Pain Assessment 06/21/25, 23:46 Last ORT Total Score 1 06/21/25, 19:59 Last ORT Risk Category Low Risk 06/21/25, 19:59 Review of Systems ROS Status of ROS 10 or more systems reviewed and unremarkable except as noted in history and below PFSH PFS Medical History (Updated 06/22/25 @ 08:43 by Pranav Ernandez MD) High blood pressure ?I10 - Essential (primary) hypertension (ICD-10) Family History Grandmother Family history of diabetes mellitus Other Family history of hypertension Social History (Updated 06/21/25 @ 22:51 by Tierra Mota) Within the past year, how often did you have a drink containing alcohol: never Within the past year, how many standard drinks containing alcohol did you have on a typical day: 3 or 4 Within the past year, how often did you have six or more drinks on one occasion: never Total score: 2 Score interpretation: A score less than 4 is consistent with normal alcohol consumption. Smoking status: Current every day smoker Nicotine containing products detail: pt denies the need for a nicotine patch Non-prescribed substance use: denies use Known occupational exposures/hazards: No Highest level of school completed/degree received: some college, no degree Little interest or pleasure in doing things: not at all Feeling down, depressed, or hopeless: not at all Meds Home Medications and Allergies Home Medications ?Medication ?Instructions ?Recorded ?Confirmed ?Type gabapentin 300 mg capsule 300 mg PO .qhs 06/21/25 06/21/25 History losartan 50 mg tablet 50 mg PO DAILY 06/21/25 06/21/25 History metformin 500 mg tablet 500 mg PO BID 06/21/25 06/21/25 History Held on 06/21/25. Instructions: per family Allergies Allergy/AdvReac Type Severity Reaction Status Date / Time No Known Drug Allergies Allergy Verified 06/21/25 15:11 Exam Narrative Exam Narrative: Patient is lying in bed. He has BiPAP on. His respiratory is about 22. Is arousable before given sedation to calm him down. Able to squeeze hand. Able to open his eyes. He is able to move his extremities. Chest exam revealed bilateral rhonchi. Diminished breath sound at the right midlung. Heart rate is regular and tachycardic. Abdomen is soft. Increased abdominal girth therefore clinically I could not exclude the possibility of intra-abdominal mass organomegaly. Lower extremities no edema. Constitutional Vital Signs, click to edit/add: Last Vital Signs Temp 97.4 F L 06/22/25 03:15 Pulse 97 H 06/22/25 08:31 Resp 20 06/22/25 05:00 BP 90/71 06/22/25 05:00 Pulse Ox 97 06/22/25 08:31 O2 Del Method BIPAP 06/22/25 08:31 O2 Flow Rate 40 06/22/25 03:00 FiO2 30 06/22/25 08:31 Results Labs Labs: Short CBC 06/21/25 06/22/25 Range/Units 15:10 04:57 WBC 21.8 H 23.4 H (4.0-11.0) 10^3/uL Hgb 13.6 L 12.1 L (14.0-18.0) g/dL Hct 37.1 L 34.6 L (42.0-54.0) % Plt Count 198 215 (150-450) 10^3/uL BMP 06/21/25 06/21/25 06/22/25 15:10 21:57 04:57 Sodium 121 L* 124 L* 128 L Potassium 3.2 L 3.5 4.6 Chloride 83 L* 89 L 93 L Carbon Dioxide 23.7 21.3 21.4 BUN 40.0 H 41.0 H 57.0 H Creatinine 1.20 1.22 1.78 H Glucose 199 H 282 H 271 H Calcium 8.1 L 7.3 L 7.5 L Liver Function 06/21/25 06/22/25 Range/Units 15:10 04:57 Total Bilirubin 0.6 0.6 (0.2-1.0) mg/dL AST 168 H 185 H (15-37) U/L ALT 84 H 81 H (16-63) U/L Alkaline Phosphatase 126 H 144 H (46-116) U/L Albumin 1.7 L 1.4 L (3.4-5.0) g/dL Urine 06/21/25 Range/Units 15:50 Urine Color Yellow (YELLOW) Urine Clarity Clear (CLEAR) Urine pH 6.0 (5.0-9.0) Ur Specific [place] 1.025 (1.005-1.025) Urine Protein 100 A (NEG/TRACE) mg/dL Urine Glucose (UA) Negative (NEGATIVE) mg/dL ABG ABG results: 06/21/25 06/22/25 06/22/25 15:28 03:06 05:45 ABG pH 7.385 7.131 L* 7.240 L* ABG pCO2 39.2 67.4 H* 51.0 H* ABG pO2 81.8 73.0 L 84.7 ABG HCO3 23.5 22.4 21.9 L ABG O2 Saturation 97.3 92.0 96.5 ABG Base Excess -1.6 -6.7 L -5.5 L Assessment and Plan Assessment and Plan (1) Acute hyponatremia: (2) Pneumonia: (3) Acute hypoxic respiratory failure: (4) Sepsis: (5) TYLOR (acute kidney injury): (6) Urinary retention: (7) Hypokalemia: (8) Hypercapnic respiratory failure: (9) Diabetes: (10) Troponin level elevated: Plan Acute hypoxic and progressive hypercapnic respiratory failure Bilateral pneumonia Sepsis present on admission Patient did fairly well on Vapotherm high flow oxygen throughout the night. Saturation is fairly good on oxygen supplementation. Patient never dropped his saturation below 92%. This morning, the patient became obtunded. Blood gas showed worsening hypercapnic respiratory acidosis. Vapotherm was switched to BiPAP. Repeat blood gas showed improvement of his pH and pCO2. Oxygenation maintained in stable condition. I increased his BiPAP setting further and plan is to repeat the blood gas before I plan to intubate him prior to transfer to [facility]. I started him on a combination of Zithromax and Zosyn. Blood culture is pending. Lactic is normal. IV fluid infusion Requested Legionella and mycoplasma. Not available to be ordered in [employer] therefore lab will order on paper through [facility]. Patient will be transferred to ICU at [facility] for comprehensive critical care. Hyponatremia This could be related to sepsis. This could be related to Legionella or mycoplasma infection. Sodium level had improved. Questionable sagittal vein thrombosis I started patient Lovenox 40 mg twice a day. I requested MRV of the brain. Unfortunately this will not be done before transferring to critical access hospital. My colleague Dr. Odom is aware of needing MRV. Consideration to start full dose anticoagulation. I will give him therapeutic dose this morning. Acute kidney failure This had developed within the last 12 hours. This could be related to sepsis ATN. This could be related to infectious glomerulonephritis. UA showed 2-5 RBC. UA also showed some protein which could be related to diabetes. TYLOR also could be related to urinary retention. Tariq catheter was placed and and 600 mL of urine drained out. This will need to be addressed at [facility] by nephrology team. Elevated troponin. No prior history of heart disease. This is likely type II demand secondary to severe sepsis and respiratory failure. I started him on aspirin and beta-francy but unable to take oral medication at this time. I requested echocardiogram to see if he has any cardiomyopathy or valvular disease. EKG does not show any ST elevation or depression. No clinical or findings to suggest ACS however patient may have underlying CAD due to his risk factors. This will need to be investigated further at [facility] by cardiology team. Diabetes. A1c is 8.4. Elevated liver enzymes which could be related to sepsis. Could be related to Legionella or mycoplasma infection May need further investigation. Consider hepatology evaluation if LFTs continue to rise. Chronic, subacute medical conditions not listed above, abnormal labs and imaging. These would need to be addressed. Could be addressed later on or in the outpatient setting by PCP collaboration with other needed outpatient providers when time and condition are appropriate. Patient is in a critical state of condition. Patient may get worse before he gets better. He may very well be end up on ventilator. Patient status is dynamic and evolutionary therefore the aforementioned assessment and plan may or may not be complete or conclusive. The patient would likely require to have additional workup, investigation and therapeutic intervention that will be determined based on the clinical progression and follow-up test result. I spent about 2 hours of critical care evaluation, assessment and treatment of this patient was far. I had discussed his case with his mom at the bedside. I called my colleague Dr. Odom at [facility]. I discussed his case with him. He accepted him to be admitted to ICU for comprehensive critical care management, pulmonary, cardiology, nephrology, probable hepatology care. Urinary Catheter Management Urinary Catheter Management Urethral: Cath placed during this visit: yes Urethral indwelling: No Insertion date: 06/22/25 Insertion time: 08:00
--- NOTE | 2025-06-22 09:38 | CM.NOTE ---
A phone call was placed to the nursing plant engineering supervisor at [facility] and a bed is available in their ICU. Patient will be going to room 4012. The accepting physician is . The nurse will call report to [phone]. A facesheet was faxed to [phone]. We will set up transportation to [facility].
[2025-06-22] MEDS: 0.9 % SODIUM CHLORIDE 1,000 ML 75 ML IV (10:16)
[2025-06-22 10:20] LABS: ABG PCO2 38.7 mmHg (35.0-45.0); PO2 ABG 75.7 mmHg (80.0-100.0)
[2025-06-22 10:21] LABS: Allen Test POS (POSITIVE); BIPAP Pressure 18/8; HCO3 ABG 20.6 mmol/L (22.0-26.0); O2 Mode BIPAP; Oxygen Saturation ABG 96.4 %; Puncture Site LEFT RADIAL; Rate 18
--- NOTE | 2025-06-22 10:38 | PM.EN ---
Event Note Event Note: Following up on the patient. Patient is much more awake than before. Able to to answer questions nodding his head. Able to follow commands. Symmetrical motor and tone. Appears to be much more comfortable. He can open his eyes focus pretty quickly. Repeat blood gas showed significant improvement of his hypercapnia and respiratory acidosis. pH is 7.33. pCO2 is 38. pO2 is 75 and saturation is 96%. Patient will be transported via critical care EMS To [facility]. I updated my colleague Dr. Odom. I updated patient mom.
--- NOTE | 2025-06-22 10:40 | PM.DS1 ---
DS: Providers Provider Date of admission: 06/21/25 19:41 Primary care physician: Lloyd Mason MD Consults: 06/21/25 19:39 Consult to Cardiology Routine Reason for consultation: Elevated Trop DS: Diagnosis Discharge Diagnosis (1) Acute hyponatremia: (2) Pneumonia: (3) Acute hypoxic respiratory failure: (4) Sepsis: (5) TYLOR (acute kidney injury): (6) Urinary retention: (7) Hypokalemia: (8) Hypercapnic respiratory failure: (9) Diabetes: (10) Troponin level elevated: Plan As listed above, below and others that are not listed DS: Summary Hospital Course Hospital Course: Mr Patino is a 40 yr male who came in with cough and shortness of breath he was found to have the following: Acute hypoxic and progressive hypercapnic respiratory failure Bilateral pneumonia Sepsis present on admission Patient did fairly well on Vapotherm high flow oxygen throughout the night. Saturation is fairly good on oxygen supplementation. Patient never dropped his saturation below 92%. This morning, the patient became obtunded. Blood gas showed worsening hypercapnic respiratory acidosis. Vapotherm was switched to BiPAP. Repeat blood gas showed improvement of his pH and pCO2. Oxygenation maintained in stable condition. I increased his BiPAP setting further and plan is to repeat the blood gas before I plan to intubate him prior to transfer to [facility]. I started him on a combination of Zithromax and Zosyn. Blood culture is pending. Lactic is normal. IV fluid infusion Requested Legionella and mycoplasma. Not available to be ordered in [email or web address] therefore lab will order on paper through [facility]. Patient will be transferred to ICU at [facility] for comprehensive critical care. Repeat ABG much better. PH is 7.33, PCO2 is 38 Hyponatremia This could be related to sepsis. This could be related to Legionella or mycoplasma infection. Ordered. Sodium level had improved. TSH, Cortiosl, Osm pending. Questionable sagittal vein thrombosis I started patient Lovenox 40 mg twice a day. I requested MRV of the brain. Unfortunately this will not be done before transferring to [facility]. My colleague Dr. Odom is aware of needing MRV. Consideration to start full dose anticoagulation. I will give him therapeutic dose this morning. Acute kidney failure This had developed within the last 12 hours. This could be related to sepsis ATN. This could be related to infectious glomerulonephritis. UA showed 2-5 RBC. UA also showed some protein which could be related to diabetes. TYLOR also could be related to urinary retention. Tariq catheter was placed and and 600 mL of urine drained out. This will need to be addressed at [facility] by nephrology team. Elevated troponin. No prior history of heart disease. This is likely type II demand secondary to severe sepsis and respiratory failure. I started him on aspirin and beta-francy but unable to take oral medication at this time. I requested echocardiogram to see if he has any cardiomyopathy or valvular disease. EKG does not show any ST elevation or depression. No clinical or findings to suggest ACS however patient may have underlying CAD due to his risk factors. This will need to be investigated further at [facility] by cardiology team. Diabetes. A1c is 8.4. Elevated liver enzymes which could be related to sepsis. Could be related to Legionella or mycoplasma infection May need further investigation. Consider hepatology evaluation if LFTs continue to rise. Chronic, subacute medical conditions not listed above, abnormal labs and imaging. These would need to be addressed. Could be addressed later on or in the outpatient setting by PCP collaboration with other needed outpatient providers when time and condition are appropriate. Patient is in a critical state of condition. Patient may get worse before he gets better. He may very well be end up on ventilator. Patient status is dynamic and evolutionary therefore the aforementioned assessment and plan may or may not be complete or conclusive. The patient would likely require to have additional workup, investigation and therapeutic intervention that will be determined based on the clinical progression and follow-up test result. I spent about 2 hours of critical care evaluation, assessment and treatment of this patient was far. I had discussed his case with his mom at the bedside. I called my colleague Dr. Odom at [facility]. I discussed his case with him. He accepted him to be admitted to ICU for comprehensive critical care management, pulmonary, cardiology, nephrology, probable hepatology care. Time Spent with Patient Time attestation: Total time spent providing and/or coordinating discharge services: Exam Constitutional Vital Signs, click to edit/add: Last Vital Signs Temp 97.9 F 06/22/25 08:00 Pulse 108 H 06/22/25 10:17 Resp 25 H 06/22/25 09:45 BP 115/89 06/22/25 09:45 Pulse Ox 97 06/22/25 10:17 O2 Del Method BIPAP 06/22/25 08:31 O2 Flow Rate 40 06/22/25 03:00 FiO2 30 06/22/25 10:17 DS: Data Data Completed and Pending Labs on day of discharge: Labs from last 24 hours 06/22/25 06/22/25 06/22/25 10:10 08:01 05:45 WBC RBC Hgb Hct MCV MCH MCHC RDW Plt Count MPV Seg Neuts % (Manual) Lymphocytes % (Manual) Monocytes % (Manual) Eosinophils % (Manual) Basophils % (Manual) Neutrophils # (Manual) Lymphocytes # (Manual) Monocytes # (Manual) Eosinophils # (Manual) Basophils # (Manual) PT INR Puncture Site Left radial L radial ABG pH 7.336 L 7.240 L* ABG pCO2 38.7 51.0 H* ABG pO2 75.7 L 84.7 ABG HCO3 20.6 L 21.9 L ABG O2 Saturation 96.4 96.5 ABG Base Excess -5.2 L -5.5 L Nacho Test Pos Positive O2 Liters/Min Minute Volume 18 FiO2 30 40 Tidal Volume 581 Pressure Support 10 BiPAP 18/8 16/8 Sodium Potassium Chloride Carbon Dioxide Anion Gap BUN Creatinine Est GFR ( Amer) Est GFR (Non-Af Amer) BUN/Creatinine Ratio Glucose Estimat Average Glucose Hemoglobin A1c Lactate Calcium Phosphorus Magnesium Total Bilirubin AST ALT Alkaline Phosphatase Troponin I High Sens NT-Pro-B Natriuret Pep Total Protein Albumin Globulin Albumin/Globulin Ratio TSH Urine Color Urine Clarity Urine pH Ur Specific [place] Urine Protein Urine Glucose (UA) Urine Ketones Urine Occult Blood Urine Nitrite Urine Bilirubin Urine Urobilinogen Ur Leukocyte Esterase Urine RBC Urine WBC Ur Squamous Epith Cells Urine Crystals Amorphous Sediment Urine Bacteria Urine Casts Hyaline Casts Coarse Granular Casts Urine Mucus Ur Culture Indicated? Ethanol Quant Influenza Type A Ag Influenza Type B Ag RSV Antigen SARS-CoV-2 Ag (CV2AG) POC Glucose 239 H 06/22/25 06/22/25 06/22/25 04:57 03:06 02:59 WBC 23.4 H RBC 3.63 L Hgb 12.1 L Hct 34.6 L MCV 95.3 H MCH 33.3 MCHC 35.0 RDW 13.1 Plt Count 215 MPV 11.1 Seg Neuts % (Manual) Lymphocytes % (Manual) Monocytes % (Manual) Eosinophils % (Manual) Basophils % (Manual) Neutrophils # (Manual) Lymphocytes # (Manual) Monocytes # (Manual) Eosinophils # (Manual) Basophils # (Manual) PT INR Puncture Site L radial ABG pH 7.131 L* ABG pCO2 67.4 H* ABG pO2 73.0 L ABG HCO3 22.4 ABG O2 Saturation 92.0 ABG Base Excess -6.7 L Nacho Test Positive O2 Liters/Min 40 Minute Volume FiO2 50 Tidal Volume Pressure Support BiPAP Sodium 128 L Potassium 4.6 Chloride 93 L Carbon Dioxide 21.4 Anion Gap 18.2 BUN 57.0 H Creatinine 1.78 H Est GFR ( Amer) 51 L Est GFR (Non-Af Amer) 42 L BUN/Creatinine Ratio 32.0 Glucose 271 H Estimat Average Glucose 194 Hemoglobin A1c 8.4 H Lactate Calcium 7.5 L Phosphorus 5.3 H Magnesium 3.7 H* Total Bilirubin 0.6 AST 185 H ALT 81 H Alkaline Phosphatase 144 H Troponin I High Sens NT-Pro-B Natriuret Pep Total Protein 6.7 Albumin 1.4 L Globulin 5.3 Albumin/Globulin Ratio 0.3 TSH 0.907 Urine Color Urine Clarity Urine pH Ur Specific [place] Urine Protein Urine Glucose (UA) Urine Ketones Urine Occult Blood Urine Nitrite Urine Bilirubin Urine Urobilinogen Ur Leukocyte Esterase Urine RBC Urine WBC Ur Squamous Epith Cells Urine Crystals Amorphous Sediment Urine Bacteria Urine Casts Hyaline Casts Coarse Granular Casts Urine Mucus Ur Culture Indicated? Ethanol Quant Influenza Type A Ag Influenza Type B Ag RSV Antigen SARS-CoV-2 Ag (CV2AG) POC Glucose 287 H 06/21/25 06/21/25 06/21/25 21:57 21:55 17:53 WBC RBC Hgb Hct MCV MCH MCHC RDW Plt Count MPV Seg Neuts % (Manual) Lymphocytes % (Manual) Monocytes % (Manual) Eosinophils % (Manual) Basophils % (Manual) Neutrophils # (Manual) Lymphocytes # (Manual) Monocytes # (Manual) Eosinophils # (Manual) Basophils # (Manual) PT INR Puncture Site ABG pH ABG pCO2 ABG pO2 ABG HCO3 ABG O2 Saturation ABG Base Excess Nacho Test O2 Liters/Min Minute Volume FiO2 Tidal Volume Pressure Support BiPAP Sodium 124 L* Potassium 3.5 Chloride 89 L Carbon Dioxide 21.3 Anion Gap 17.2 BUN 41.0 H Creatinine 1.22 Est GFR ( Amer) >60 Est GFR (Non-Af Amer) >60 BUN/Creatinine Ratio 33.6 Glucose 282 H Estimat Average Glucose Hemoglobin A1c Lactate Calcium 7.3 L Phosphorus Magnesium Total Bilirubin AST ALT Alkaline Phosphatase Troponin I High Sens 153.8 H* NT-Pro-B Natriuret Pep Total Protein Albumin Globulin Albumin/Globulin Ratio TSH Urine Color Urine Clarity Urine pH Ur Specific [place] Urine Protein Urine Glucose (UA) Urine Ketones Urine Occult Blood Urine Nitrite Urine Bilirubin Urine Urobilinogen Ur Leukocyte Esterase Urine RBC Urine WBC Ur Squamous Epith Cells Urine Crystals Amorphous Sediment Urine Bacteria Urine Casts Hyaline Casts Coarse Granular Casts Urine Mucus Ur Culture Indicated? Ethanol Quant Influenza Type A Ag Influenza Type B Ag RSV Antigen SARS-CoV-2 Ag (CV2AG) POC Glucose 265 H 06/21/25 06/21/25 06/21/25 15:50 15:28 15:15 WBC RBC Hgb Hct MCV MCH MCHC RDW Plt Count MPV Seg Neuts % (Manual) Lymphocytes % (Manual) Monocytes % (Manual) Eosinophils % (Manual) Basophils % (Manual) Neutrophils # (Manual) Lymphocytes # (Manual) Monocytes # (Manual) Eosinophils # (Manual) Basophils # (Manual) PT INR Puncture Site Lr ABG pH 7.385 ABG pCO2 39.2 ABG pO2 81.8 ABG HCO3 23.5 ABG O2 Saturation 97.3 ABG Base Excess -1.6 Nacho Test Positive O2 Liters/Min 6 Minute Volume FiO2 Tidal Volume Pressure Support BiPAP Sodium Potassium Chloride Carbon Dioxide Anion Gap BUN Creatinine Est GFR ( Amer) Est GFR (Non-Af Amer) BUN/Creatinine Ratio Glucose Estimat Average Glucose Hemoglobin A1c Lactate Calcium Phosphorus Magnesium Total Bilirubin AST ALT Alkaline Phosphatase Troponin I High Sens NT-Pro-B Natriuret Pep Total Protein Albumin Globulin Albumin/Globulin Ratio TSH Urine Color Yellow Urine Clarity Clear Urine pH 6.0 Ur Specific [place] 1.025 Urine Protein 100 A Urine Glucose (UA) Negative Urine Ketones Trace A Urine Occult Blood Large A Urine Nitrite Negative Urine Bilirubin Negative Urine Urobilinogen 1.0 Ur Leukocyte Esterase Trace A Urine RBC 2-5 A Urine WBC 2-5 A Ur Squamous Epith Cells Few A Urine Crystals Seen A Amorphous Sediment Few Urine Bacteria Small A Urine Casts Seen A Hyaline Casts Rare Coarse Granular Casts Moderate Urine Mucus Trace A Ur Culture Indicated? Yes-[facility] [place] Ethanol Quant Influenza Type A Ag Negative Influenza Type B Ag Negative RSV Antigen Not detected SARS-CoV-2 Ag (CV2AG) Negative POC Glucose 06/21/25 06/21/25 15:13 15:10 WBC 21.8 H RBC 4.07 L Hgb 13.6 L Hct 37.1 L MCV 91.2 MCH 33.4 MCHC 36.7 H RDW 12.3 Plt Count 198 MPV 11.2 Seg Neuts % (Manual) 94.0 H Lymphocytes % (Manual) 2.0 L Monocytes % (Manual) 4.0 Eosinophils % (Manual) 0.0 L Basophils % (Manual) 0.0 L Neutrophils # (Manual) 20.49 H Lymphocytes # (Manual) 0.43 L Monocytes # (Manual) 0.87 H Eosinophils # (Manual) 0.00 Basophils # (Manual) 0.00 PT 12.0 H INR 1.15 Puncture Site ABG pH ABG pCO2 ABG pO2 ABG HCO3 ABG O2 Saturation ABG Base Excess Nacho Test O2 Liters/Min Minute Volume FiO2 Tidal Volume Pressure Support BiPAP Sodium 121 L* Potassium 3.2 L Chloride 83 L* Carbon Dioxide 23.7 Anion Gap 17.5 BUN 40.0 H Creatinine 1.20 Est GFR ( Amer) >60 Est GFR (Non-Af Amer) >60 BUN/Creatinine Ratio 33.3 Glucose 199 H Estimat Average Glucose Hemoglobin A1c Lactate 1.8 Calcium 8.1 L Phosphorus Magnesium Total Bilirubin 0.6 AST 168 H ALT 84 H Alkaline Phosphatase 126 H Troponin I High Sens 169.1 H* NT-Pro-B Natriuret Pep 1334.0 H* Total Protein 7.3 Albumin 1.7 L Globulin 5.6 Albumin/Globulin Ratio 0.3 TSH Urine Color Urine Clarity Urine pH Ur Specific [place] Urine Protein Urine Glucose (UA) Urine Ketones Urine Occult Blood Urine Nitrite Urine Bilirubin Urine Urobilinogen Ur Leukocyte Esterase Urine RBC Urine WBC Ur Squamous Epith Cells Urine Crystals Amorphous Sediment Urine Bacteria Urine Casts Hyaline Casts Coarse Granular Casts Urine Mucus Ur Culture Indicated? [employer] Quant <3 Influenza Type A Ag Influenza Type B Ag RSV Antigen SARS-CoV-2 Ag (CV2AG) POC Glucose 206 H Preliminary micro results at discharge 06/21/25 15:50 Urine Culture - Preliminary Urine,Clean Catch Pending - Specimen sent to [facility] Discharge Plan Discharge Disposition: [facility]
--- NOTE | 2025-06-22 10:42 | CM.NOTE ---
0710 CM in with for daily rounds. Patient to be transferred to [facility]. Dr. Ernandez will make call to arrange transfer.
[2025-06-22] MEDS: DIAZEPAM 10 MG/2 ML SYRINGE 2.5 MG IV (11:46)
--- NOTE | 2025-06-22 12:47 | PC.NURSE ---
[facility] arrived at 1208 to take patient. [facility] departed with patient at 1247. All belongings sent with seun Koch at bedside.
--- NOTE | 2025-06-22 13:02 | PC.NURSE ---
Report called to [facility] ALEJANDRO Tatum RN at this time. She is aware of all imaging and labs that were done here as well as assessment findings. [facility] denies further questions at this time but a call back number was provided if she were to have any.
[2025-06-27 14:10] LABS: Osmolality, Urine 548 mOsmol/kg (.)
== END 2025-06-22 12:47 | disposition short-term general hospital (02) | DRG 871 ==
LOC: ER 17:47 → MS 19:45
PROVIDERS: Admitting Provider Internal Medicine; Emergency Provider Emergency Medicine; PCP Family Medicine; Visit Provider Internal Medicine
DX: A41.9 Sepsis, unspecified organism (principal); J18.9 Pneumonia, unspecified organism; J96.01 Acute respiratory failure with hypoxia; J96.02 Acute respiratory failure with hypercapnia; N17.9 Acute kidney failure, unspecified; E87.1 Hypo-osmolality and hyponatremia; I82.890 Acute embolism and thrombosis of other specified veins; R33.9 Retention of urine, unspecified; E87.6 Hypokalemia; E11.9 Type 2 diabetes mellitus without complications; R79.89 Other specified abnormal findings of blood chemistry; Z79.84 Long term (current) use of oral hypoglycemic drugs; R65.20 Severe sepsis without septic shock; R74.8 Abnormal levels of other serum enzymes; F17.210 Nicotine dependence, cigarettes, uncomplicated; I10 Essential (primary) hypertension
CPT/HCPCS: 36415; 36600; 51702; 70450; 71045; 71275; 80048; 80053; 80074; 80320; 81001; 82533; 82805; 82948; 83036; 83605; 83735; 83880; 83930; 83935; 84100; 84443; 84484; 85007; 85027; 85610; 86713; 87040; 87086; 87420; 87581; 87804; 87811; 93005; 93306; 94640; 94660; 94761; 94799; 96365; 96366; 96368; 96375; 99285; J0456; J1650; J2543; J2765; J2919; J3360; J3373; Q9967

== ENCOUNTER 2025-07-03 10:38 | Outpatient (RCR) | payer BC, SELFPAY | END 2025-07-15 08:32 | disposition home or self-care (01) | LOC: PT 10:38 | PROVIDERS: PCP Family Medicine; Visit Provider Family Medicine | DX: R53.1 Weakness (principal); R26.9 Unspecified abnormalities of gait and mobility | CPT/HCPCS: 97110; 97112; 97163; 97530 ==

== ENCOUNTER 2025-07-10 11:58 | Outpatient (OUT) | payer BC, SELFPAY ==
[2025-07-10 12:36] LABS: Alanine Aminotransferase 36 U/L (16-63); Albumin Globulin Ratio 0.6; Albumin Level 2.7 g/dL (3.4-5.0); Alkaline Phosphatase 156 U/L (46-116); Aspartate Amino Transferase 29 U/L (15-37); Globulin 4.9 g/dL; Total Protein 7.6 g/dL (6.4-8.2)
== END 2025-07-10 11:59 | disposition home or self-care (01) ==
LOC: LAB 12:01
PROVIDERS: PCP Family Medicine
DX: R74.01 Elevation of levels of liver transaminase levels (principal)
CPT/HCPCS: 36415; 80076

== ENCOUNTER 2025-07-12 14:00 | Outpatient (OUT) | payer BC, SELFPAY ==
--- OUTSIDE RECORDS SUMMARY | 2025-06-29 08:43 | XMS_ITS | Continuity of Care Document ---
Author Organization [facility] Address [address] [place] [address] Phone Care Team Providers Care Material Expeditor Name Role Phone Lloyd Mason MD Primary Care Provider Lloyd Mason MD Attending Provider [phone] Anna Manzanares MD Attending Provider Pranav Ernandez MD Attending Provider Arthur Odom MD Admit Provider Arthur Odom MD Other Provider Alexis Curran MD Other Provider Sanaz Astudillo RN Other Provider Unavailable Cesar Bowman MD Other Provider Dru Tee MD Attending Provider Dru Tee MD Other Provider Michelle Crawley MD Other Provider [phone] Lata Raygoza APRN Other Provider Care Teams Patient Care Team Team Status: Active Member Role Status Dates Lloyd Mason MD Primary Care Provider Active Visit Care Team Team Status: Inactive Member Role Status Dates Lloyd Mason MD Primary Care Provider Active S tart: June 12, 2025 End: June 12, 2025[facility] MDAttending ProviderActiveStart: June 12, 2025 End: June 12, 2025 Visit Care Team Team Status: Active Member Role Status Dates Lloyd Mason MD Primary Care Provider Active S tart: June 21, 2025 Cristina Bellending ProviderActiveStart: June 21, 2025 Visit Care Team Team Status: Inactive Member Role Status Dates Anna Manzanares MD Attending Provider Active Sta rt: June 21, 2025 End: June 21, 2025 Visit Care Team Team Status: Active Member Role Status Dates Lloyd Mason MD Primary Care Provider Active S tart: June 22, 2025 Cristina Hunterending ProviderActiveStart: June 22, 2025 Visit Care Team Team Status: Active Member Role Status Dates Lloyd aMson MD Primary Care Provider Active S tart: June 22, 2025 Huseyin Lee ProviderActiveStart: June 22, 2025 Arthur Odom MDOther ProviderActiveStart: June 22, 2025 Alexis Curran MDOther ProviderActiveStart: June 22, 2025 Sanaz Astudillo RNOther ProviderActiveStart: June 22, 2025 Sanaz Astudillo RNOther ProviderActiveStart: June 22, 2025 Cesar Bowman MDOther ProviderActiveStart: June 22, 2025 Cristina Olivarezending ProviderActiveStart: June 22, 2025 Bro Olivarez ProviderActiveStart: June 22, 2025 Michelle Crawley MDOther ProviderActiveStart: June 22, 2025 Prashanth Gagnon ProviderActiveStart: June 22, 2025 Patient Care Team Team Status: Inactive Member Role Status Dates Lloyd Mason MD Primary Care Provider Active S tart: June 29, 2025 End: June 29, 2025Agusto Mahan ProviderActiveStart: June 29, 2025 End: June 29, 2025 Chief Complaint and Reason for Visit Chief Complaint Admit Date Established Patient June 12, 2025 1:37pm Unknown June 21, 2025 3: 50pm Resp Failure June 22, 2025 1: 50pm Hosp FollowUp June 29, 2025 11 :31am Reason for Visit Admit Date Benign essential [...] long-term current use June 12, 2025 1:37pm Acute respiratory failure with hypoxia a nd hypercapnia June 22, 2025 1:50pm TYLOR (acute kidney injury) June 22 1:50pm Elevated troponin June 22, 2025 1: 50pm Elevation of levels of liver transaminas e levels June 22, 2025 1:50pm Hyponatremia June 22, 2025 1: 50pm Obstructive sleep apnea June 22 1:50pm Pneumonia June 22, 2025 1: 50pm Sepsis June 22, 2025 1: 50pm Thrombosis, superior sagittal sinus Octo 2024 1:50pm Urinary retention June 22, 2025 1: 50pm Benign essential hypertension June 11:31am Cigarette smoker June 29, 2025 11 :31am General weakness June 29, 2025 11 :31am Type 2 diabetes mellitus wit h hyperglycemia, without long-term current use June 29, 2025 11:31am Reason for Referral Referring Provider Name Referring Provider Address Referring Provider Phone Referral Date Requested Appointment Date Referral Reason Arthur Odom [address] [place] [place] [address]Zzzd Phone: [facility] [address] [place] [address]Kgnj Phone: [facility] 2024R53.1 - WeaknessYou have been scheduled for a follow up appointment for the following date and time, please call to reschedule if needed.June 29, 2025R53.1 - Weakness Allergies, Adverse Reactions, Alerts Allergen Type Severity Reaction Last Updated Verified Status lisinopril Allergy Unknown Cough June 29, 2025 12:04pm Yes Active Social History Smoking Status Status Start Date End Date Date of Observa tion Ex-smoker (finding) June 29, 2025 12:07pm Observation Status Observation Response Date of Response Legal Sex Male (finding) Sex Assigned At BirthMaleApril 1984 Family History Relationship Condition Age at Onset Recorded Date/T tamara mother Malignant neoplasm Unknown Problems Active Problems Medical Problem Onset Date Status Weakness acquired in ICU Unknown Active Benign essential hypertension Unknown Ac tive Dyslipidemia Unknown Active General weakness Unknown Active Hypersomnia Unknown Active Type 2 diabetes mellitus wit h diabetic neuropathy, without long-term current use of insulin Unknown Active Type 2 diabetes mellitus wit h microalbuminuria, without long-term current use of insulin Unknown Active Type 2 diabetes mellitus wit h hyperglycemia, without long-term current use of insulin Unknown Active Cigarette smoker Unknown Active Acute cerebral venous sinus thrombosis Unknown Active Class 1 obesity due to exces s calories with serious comorbidity and body mass index (BMI) of 32.0 to 32.9 in adult Unknown Active Inactive/Resolved Problems Medical Problem Onset Date Status TYLOR (acute kidney injury) Unknown Resolv ed Elevation of levels of liver transaminase levels Unknown Resolved Obstructive sleep apnea Unknown Resolved Thrombosis, superior sagittal sinus Unknown Resolved Hyponatremia Unknown Resolved Acute respiratory failure with hypoxia and hyper capnia Unknown Resolved Elevated troponin Unknown Resolved Urinary retention Unknown Resolved Sepsis Unknown Resolved Pneumonia Unknown Resolved Medications Medication Status Dose Units Route Directions Qty Days St art Date Stop Date End Date Instructions Adherence Levofloxacin 750 mg tablet Active 750 MG PO Daily at bedtime June 26, 2025 12:00amnext dose 06/26/25 pmUnknownRivaroxaban (Xarelto) 20 mg iezwxyUwrkqp47QNLNUplzq gwjdvxg05Ewxfptm 2024 12:00ammust administer with evening mealUnknownTelmisartan 80 mg xtehwuJzwcfg12YDKOYhfxt66.0October 2024 12:00amUnknownLosartan 50 mg vnmefgMgdhqkyksbwo42AZJVUofxrYkguvffyk 2024 12:00amOctober 2024 1:01pmSildenafil 50 mg gjmcreHqkrsugtsfki23AJZW Daily as needed for erectile dysfunctionSeptember 2024 12:00amOctober 2024 1:01pmadminister 30 minutes to 4 hours before activityGlipizide 10 mg nwllboDbbhfa78ZEDSWfpkoNwdhmfide 2024 12:00amUnknownBlood Sugar Diagnostic (Blood Glucose Test) stripDiscontinued0.ROUTESeptember 2024 12:00amOctober 2024 1:01pmAs directed, check Bs once daily One Touch Ultra 2Lancets misc Discontinued0.ROUTESeptember 2024 12:00amOctober 2024 1:01pmAs directed, One Touch Ultra 2, check BS once dailyBlood Ketone Glucose Monitor deviceDiscontinued0.ROUTESeptember 2024 12:00amOctober 2024 1:01pmAs directed, One Touch Ultra 2, check BS once dailySemaglutide (Ozempic) 0.25 mg or 0.5 mg (2 mg/3 mL) pen uhckqzeaPtwtkoszebwq1WWFWQPwiqnr jglp5Qapcrelai2024 12:00amOctober 2024 1:01pm0.25 mg weekly x 4 weeks, 0.5 mg weekly Gabapentin 300 mg tjsucjeGdewnk949WLMZRngxo at tylpkyj59Lvuqsxlsw 22nd, 2025 12:00amUnknownNicotine (Nicoderm Cq) 14 mg/24 hr patch 24 kbawOacixf1JOLQL XHZFDWGDGVHntdy04Lnqpqde 2024 12:00amComplies with drug therapyAlbuterol Sulfate 90 mcg/actuation HFA aerosol cexfkifInochi9BLPNQJVOMEWFVAJhwza 4 hours as needed for shortness of breath or wheezing8.5October 2024 12:00am Complies with drug therapy Procedures Procedure Date Performed Status Urine Culture June 21, 2025 completed Relevant Diagnostic Tests and/or Laboratory Data Laboratory Results Test Collection Date/Time Result Date/Time Result Interpretation Reference Range Result Comment Performing Site B-Type Natriuretic Peptide June 21, 2025 3:10pm June 21, 2025 3:10pm 1334.0 pg/mL Above upper panic limits <=450.0 RESULTS CALLED TO ABDULAZIZ GAVIN RN Absolute Basophils (Manual)June 21, 2025 3:10pm[facility] 2024 3:10pm0.00 10 3/uL0.00-0.10HematocritOctober 2024 3:10pm37.1 %Below low normal 42.0-54.0Ethyl Alcohol LevelOct2024 3:10pmOctober 2024 3:10pm<3 mg/dLNOTE: 80 mg/dl is the legal limit for a blood alcohol levelLactic Acid LevelOct2024 3:10pmOctober 2024 3:10pm1.8 mmol/L0.4-2.0Prothromb Time International RatioOct2024 3:10pmOctober 2024 3:10pm1.15 DESIRED INR:2.0-3.0 CONDITIONS NOT LISTED BELOW2.5-3.5 FOR PROSTHETIC HEART VALVE REPLACEMENT2.5-3.5 RECURRENT THROMBOSISRSV RNA Qual (PCR)(MISC)June 21, 2025 3:15pmOctober 2024 3:15pmNot DetectedNOT WOHURAPCUOZ-ByZ-8 Ag (CV2AG)June 21, 2025 3:15pmOctober 2024 3:15pmNEGATIVENEGATIVEThis test has not been FDA cleared or approved, but has beenauthorized by the FDA under an Emergency Use Authorization(EUA) for use by authorized laboratories certified underIA that meet the requirements to perform moderate or highcomplexity testing. This test has been authorized only forthe detection of proteins from SARS-CoV-2, not for any otherviruses or pathogens. The emergency use of this t est isauthorized for the duration of the declaration thatcircumstances exist justifying the authorization ofemergency use of in vitro diagnostic tests for detectionand/or diagnosis of Covid-19 under section 564(b)(1) of theAct, 21 U.S.C. 360bbb-3(b)(1), unless the declaration isterminated or authorization is revoked sooner.Bedside Influenza Type A AntigenOctober 2024 3:15pmOctober 2024 3:15pmNegativeNegative for Flu A protein antigen. Infection due to Flu Acannot be ruled out. Flu A antigen in thesample may bebelow the detection limit of the test.Nacho TestOctober 2024 3:28pmOctober 2024 3:28pmPOSITIVE POSITIVEUrine OsmolalityOct2024 3:50pmOctober 2024 3:94qh791 mOsmol/kg.24 hr : 300 - 900 Random: 50 - 1400 After 12hr fluid restriction: >850Performed at: BN - [address] [place], [place] [id number] Director: Leticia Lopez MD, Phone: [phone] Culture ReflexedOctober 2024 3:50pmOctober 2024 3:50pmYES-FRMCUrine Microscopic ReviewOctober 2024 3:50pmYESTroponin I High SensitivityOctober 2024 5:53pmOctober 2024 5:97ko348.8 pg/mLAbove upper panic limits 4.0-76.1RESULTS CALLED TO TARA CASANOVA, SHARADUT-OFF POINTS HAVE BEEN ESTABLISHED BASED ON THE FOURTHUNIVERSAL DEFINITION OF MYOCARDIAL INFARCTION. THE UPPERREFERENCE LIMIT (URL) OF TROPONIN, DEFINED THE 99THPERCENTILE OF cTnI DISTRIBUTION IN A REFERENCE POPULATION,HAS BEEN CONFIRMED THE DECISION T HRESHOLD FOR MIDIAGNOSIS.99TH PERCENTILE = 76.2 PG/MLNOTE: HIGH-SENSITIVITY TROPONIN ASSAY IS NOT INTENDED TO BEUSED IN ISOLATION BUT SHOULD BE INTERPRETED IN CONJUNCTIONWITH OTHER DIAGNOSTIC AND CLINICAL INFORMATION.OsmolalityOctober 2024 9:57pmOctober 2024 9:95rv805 mOsmol/fh317-174Nrixzydjn at: - [facility] [id number] Director: Leticia Lopez MD, Phone: [phone] GapOctober 2024 9:57pmOctober 2024 9:57pm17.2Thyroid Stimulating Hormone 3rd GenOct2024 4:57amOctober 2024 4:57am0.907 u[iU]/mL0.358-3.740Magnesium LevelOctober 2024 4:57am June 22, 2025 4:57am3.7 mg/dLAbove upper panic limits1.8-2.4RESULTS CALLED TO ROMY CARR RN @BY Kaitlyn Hernandez at 0536Phosphorus LevelOctober 2024 4:57amOctober 2024 4:57am5.3 mg/dLAbove high normal2.6-4.7Anion GapOctober 2024 4:57amOctober 2024 4:57am18.2Estimated Average Glucose June 22, 2025 4:57amOctober 2024 4:73gd445 mg/dLHematocritOctober 2024 4:57amOctober 2024 4:57am34.6 %Below low wlyjda67.0-54.0Cortisol AM SampleOctober 2024 4:57amOctober , 2024 4:57am39.0 ug/dLAbnormal (applies to non-numeric results)6.2-19.4Performed at: [address] [id number] Director: Cristobal Benjamin PhD, Phone: [phone] A IgM AntibodyOctober 2024 4:57amOctober , 2024 4:57amNegativeNegativeA negative anti-HAV IgM result suggests no recent orcurrent HAV infection.Nacho TestOctober 2024 5:45amOctober 2024 5:45amPOSITIVEPOSITIVEMiscellaneous TestOctober 2024 10:40amOctober 2024 10:40amCOMMENT.Test Ordered: [id number] Mycoplasma pneumoniaeMycop. pneumoniae by Qual. PCR Comment (M Reference Range: .Reference lab report sent via fax.Performed at: [facility] [address] [place] [id number] Director: Dione Landry MD, Phone: [phone] at: [address] [id number] Director: Cristobal Benjamin PhD, Phone: [phone] %June 21, 2025 3:10pmOct2024 3:10pm0.0 %Below low normal0.2-2.0HemoglobinOct2024 3:10pm13.6 g/dLBelow low bvblyj79.0-18.0Albumin/Globulin RatioOct2024 3:10pm June 21, 2025 3:10pm0.3Prothrombin TimeOct2024 3:10pmOct2024 3:10pm12.0 secAbove high normal9.0-11.6Bedside Influenza Type B Antigen June 21, 2025 3:15pmOct2024 3:15pmNegativeNegative for Flu B protein antigen. Infection due to Flu Bcannot be ruled out. Flu B antigen in the sample may bebelow the detection limit of the test.Arterial Blood Base Excess June 21, 2025 3:28pmOct2024 3:28pm-1.6 mmol/L<2.0-2.0Urine Other CastsOctober 2024 3:50pmOct2024 3:50pmSEEN #/LPFAbnormal (applies to non-numeric results)NONE SEENUrine BilirubinOct2024 3:50pmNEGATIVE NEGATIVEBUN/Creatinine RatioOct2024 9:57pmOct2024 9:57pm33.6 Albumin/Globulin RatioJune 22, 2025 4:57amOct2024 4:57am0.3 Hemoglobin X0sWoafylgJune 22, 2025 4:57amJune 22, 2025 4:57am8.4 %Above high normal4.5-6.2ADA RECOMMENDED LIMIT 4.0 - 6.0ADA THERAPEUTIC TARGET < 7.0ACTION SUGGESTED> 7.0HemoglobinJune 22, 2025 4:57amJune 22, 2025 4:57am12.1 g/dLBelow low ldjoti01.0-18.0Hepatitis B Surface AntigenJune 22, 2025 4:57am June 22, 2025 4:57amNegativeNegativeArterial Blood Base ExcessJune 22, 2025 5:45amJune 22, 2025 5:45am-5.5 mmol/LBelow low normal<2.0-2.0 Eosinophils # (Manual)June 21, 2025 3:10pmOct2024 3:10pm0.00 10 3/uL0.00-0.70Mean Corpuscular HemoglobinOct2024 3:10pm33.4 pg25.9-34.0 AlbuminJune 21, 2025 3:10pmOct2024 3:10pm1.7 g/dLBelow low normal 3.4-5.0Arterial Blood OIA6Clcdjbv2024 3:28pmOct2024 3:28pm23.5 mmol/L22.0-26.0Urine Other CrystalsJune 21, 2025 3:50pmOctober 2024 3:50pmSeen #/HPFAbnormal (applies to non-numeric results)None SeenUrine Occult BloodOctober 2024 3:50pmLARGEAbnormal (applies to non-numeric results) NEGATIVEBlood Urea NitrogenOctober 2024 9:57pmOctober 2024 9:57pm41.0 mg/dLAbove high normal7.0-18.0AlbuminJune 22, 2025 4:57amOctober 2024 4:57am1.4 g/dLBelow low normal3.4-5.0Mean Corpuscular HemoglobinOct2024 4:57amOctober 2024 4:57am33.3 pg25.9-34.0Hepatitis B Core IgM Antibody June 22, 2025 4:57amOctober 2024 4:57amNegativeNegativeBlood Gas Mode BiPAPOctober 2024 5:45amOctober 2024 5:45am16/8Eosinophils %June 21, 2025 3:10pmOctober 2024 3:10pm0.0 %Below low normal0.9-7.0Mean Corpuscular Hemoglobin ConcentOct2024 3:10pm36.7 g/dLAbove high normal 29.9-35.2Alkaline PhosphataseOctober 2024 3:10pmOctober 2024 3:34dk685 U/LAbove high zcyorr22-322Gdgjs Gas Liter FlowJune 21, 2025 3:28pmOctober 2024 3:78yg6Jcmjb Amorphous SedimentOctober 2024 3:50pmOctober 2024 3:50pmFEWUrine AppearanceOctober 2024 3:50pmCLEARCLEARCalcium Level June 21, 2025 9:57pmOctober 2024 9:57pm7.3 mg/dLBelow low normal 8.5-10.1Alkaline PhosphataseOctober 2024 4:57amOctober 2024 4:30js378 U/LAbove high iwniqn68-280Tmot Corpuscular Hemoglobin ConcentOctober 2024 4:57amOctober 2024 4:57am35.0 g/dL29.9-35.2Hepatitis C AntibodyOct2024 4:57amOctober 2024 4:57amNon ReactiveNon ImjuvqtiCtV3Vjvmbdq 2nd, 2025 5:45amOctober 2024 5:45am40 %Lymphocytes # (Manual)June 21, 2025 3:10pmOctober 2024 3:10pm0.43 10 3/uLBelow low normal1.20-3.80Mean Corpuscular VolumeOct2024 3:10pm91.2 fL80.0-94.0Alanine Aminotransferase (ALT/SGPT)June 21, 2025 3:10pmOctober 2024 3:10pm84 U/LAbove high nxjbix02-92Tjitwd Delivery DeviceOct2024 3:28pmOctober 2024 3:28pmNCUrine BacteriaOct2024 3:50pmOctober 2024 3:50pm SMALL #/HPFAbnormal (applies to non-numeric results)NONE SEENUrine ColorOct2024 3:50pmYELLOWYELLOWChloride LevelOct2024 9:57pmOctober 2024 9:57pm89 mmol/LBelow low uvqtiy19-018Uuele Gas Liter FlowJune 22, 2025 3:06amOctober 2024 3:15xk83Zuqammr Aminotransferase (ALT/SGPT)June 22, 2025 4:57amOctober 2024 4:57am81 U/LAbove high pgnroe95-25Wizx Corpuscular VolumeOct2024 4:57amOctober 2024 4:57am95.3 fLAbove high normal 80.0-94.0Hepatitis B Interpretation.June 22, 2025 4:57amOctober 2024 4:57amComment.Not infected with HCV unless early or acute infection issuspected (which may be delayed in an immunocompromisedindividual), or other evidence exists to indicate HCVinfection.Performed at: [facility] [id number] Director: Cristobal Benjamin PhD, Phone: [phone] Arterial Blood VKV6Wisbzgr2024 5:45amOct2024 5:45am21.9 mmol/L Below low .0-26.0Lymphocytes %June 21, 2025 3:10pmOct2024 3:10pm2.0 %Below low gnulpg31.5-60.0Mean Platelet VolumeOct2024 3:10pm 11.2 fL9.5-13.5Aspartate Amino Transf (AST/SGOT)June 21, 2025 3:10pmOct2024 3:71cz345 U/LAbove high npewsl31-61Gxyctbmi Blood Oxygen Saturation June 21, 2025 3:28pmOct2024 3:28pm97.3 %Urine Coarse Granular CastsOct2024 3:50pmOct2024 3:50pmMODERATEUrine Glucose (UA) June 21, 2025 3:50pmNEGATIVE mg/dLNEGATIVECarbon Dioxide LevelOct2024 9:57pmOct2024 9:57pm21.3 mmol/L21.0-32.0Aspartate Amino Transf (AST/SGOT)June 22, 2025 4:57amOct2024 4:57nr528 U/LAbove high rettnv71-18Fxln Platelet VolumeOct2024 4:57amOct2024 4:57am 11.1 fL9.5-13.5Oxygen Delivery DeviceOct2024 5:45amOct2024 5:45amBIPAPMonocytes # (Manual)June 21, 2025 3:10pmOct2024 3:10pm 0.87 10 3/uLAbove high normal0.30-0.80Platelet CountJune 21, 2025 3:52uy412 10 3/nN225-562Vdpsrwlz Blood Partial Pressure NP6Jrkeqgx2024 3:28pmOct2024 3:28pm39.2 mm[Hg]35.0-45.0Urine Hyaline CastsOctober 2024 3:50pm June 21, 2025 3:50pmRAREUrine KetonesOctober 2024 3:50pmTRACE mg/dL Abnormal (applies to non-numeric results)NEGATIVECreatinineOct2024 9:57pmOctober , 2024 9:57pm1.22 mg/dL0.70-1.30BUN/Creatinine RatioOct2024 4:57amOctober 2024 4:57am32.0Platelet CountOct2024 4:57amOct2024 4:52uq245 10 3/yZ939-651Ehlvvrvu Blood Oxygen Saturation June 22, 2025 5:45amOct2024 5:45am96.5 %Monocytes %June 21, 2025 3:10pmOct2024 3:10pm4.0 %1.7-12.0Red Blood CountOct2024 3:10pm4.07 10 6/uLBelow low normal4.70-6.10Arterial Blood pHOctober 2024 3:28pmOct2024 3:28pm7.3857.350-7.450Urine MucusOct2024 3:50pmOctober 2024 3:50pmTRACEAbnormal (applies to non-numeric results)NONE SEENUrine Leukocyte EsteraseOct2024 3:50pmTRACEAbnormal (applies to non-numeric results)NEGATIVEEstimated GFR ()June 21, 2025 9:57pmOct2024 9:57pm>60>=60 mL/min/1.73m 2Blood Urea NitrogenJune 22, 2025 4:57amJune 22, 2025 4:57am57.0 mg/dLAbove high normal7.0-18.0Red Blood CountOct2024 4:57amJune 22, 2025 4:57am3.63 10 6/uLBelow low normal4.70-6.10Arterial Blood Partial Pressure MY3XclqoweJune 22, 2025 5:45am June 22, 2025 5:45am51.0 mm[Hg]Above upper panic defskg92.0-45.0RESULTS CALLED TO ROMY CARR RN @BY Kaitlyn Hernandez at 0557Segmented Neutrophils # (Manual)June 21, 2025 3:10pmOctober , 2024 3:10pm20.49 10 3/uLAbove high normal1.4-6.5Red Cell Distribution WidthOctober 2024 3:10pm 12.3 %11.0-15.0Arterial Blood Partial Pressure M5Hbrxdzn 2024 3:28pmOctober , 2024 3:28pm81.8 mm[Hg]80.0-100.0Urine RBCOctober 2024 3:50pmOctober 2024 3:92pf5-1 #/HPFAbnormal (applies to non-numeric results)0-2Urine NitriteOct2024 3:50pmNEGATIVENEGATIVEEstimated GFR (Non- AmericanOct2024 9:57pmOctober , 2024 9:57pm>60>=60 mL/min/1.73m 2 Calcium LevelOctober 2024 4:57amOctober 2024 4:57am7.5 mg/dLBelow low normal8.5-10.1Red Cell Distribution WidthOctober 2024 4:57amOctober , 2024 4:57am13.1 %11.0-15.0Arterial Blood pHOctober 2024 5:45amOctober 2024 5:45am7.240Below lower panic limits7.350-7.450RESULTS CALLED TO ROMY CARR RN @BY Kaitlyn Hernandez at 0557Segmented NeutrophilsOct2024 3:10pmOctober 2024 3:10pm94.0Above high gzpvtu48.0-75.0Corrected White Blood CountOctober 2024 3:10pm21.8 10 3/uLAbove high normal4.0-11.0Blood Gas Sample SiteOct2024 3:28pmOctober 2024 3:28pmLRUrine Squamous Epithelial CellsOctober 2024 3:50pmOctober 2024 3:50pmFEW #/LPF Abnormal (applies to non-numeric results)NONE/RAREUrine pHOctober 2024 3:50pm6.05.0-9.0Glucose LevelOctober 2024 9:57pmOctober , 2024 9:44yd631 mg/dLAbove high dikpee34-036Eyglnash LevelOct2024 4:57amOctober 2024 4:57am93 mmol/LBelow low xzsqvi71-952Nqjbhmwzy White Blood CountOctober 2024 4:57amOctober 2024 4:57am23.4 10 3/uLAbove high normal4.0-11.0 Arterial Blood Partial Pressure E3Wdhxrbc 2024 5:45amOctober 2024 5:45am84.7 mm[Hg]80.0-100.0Urine WBCOct2024 3:50pmOctober 2024 3:12wm0-0 #/HPFAbnormal (applies to non-numeric results)NONE SEENUrine Protein June 21, 2025 3:35vs103 mg/dLAbnormal (applies to non-numeric results) NEG/TRACEPotassium LevelOctober 2024 9:57pmOctober , 2024 9:57pm3.5 mmol/L3.5-5.1Carbon Dioxide LevelOctober 2024 4:57amOctober 2024 4:57am21.4 mmol/L21.0-32.0Blood Gas Sample SiteOct2024 5:45amOctober 2024 5:45amL RADIALUrine Specific GravityOct2024 3:50pm1.025 1.005-1.025Sodium LevelOctober 2024 9:57pmOctober 2024 9:99zt055 mmol/LBelow lower panic rrrkwi055-489EQMWOBI CALLED TO ROMY CARR, RN CreatinineOctober 2024 4:57amOct2024 4:57am1.78 mg/dLAbove high normal0.70-1.30Urine UrobilinogenOctober 2024 3:50pm1.0 EU/dL0.2-1.0 Estimated GFR ()June 22, 2025 4:57amOct2024 4:57am 51Below low normal>=60 mL/min/1.73m 2Estimated GFR (Non- AmericanJune 22, 2025 4:57amOctober 2024 4:58qs24Gsigf low normal>=60 mL/min/1.73m 2 GlobulinOctober 2024 3:10pmOctober , 2024 3:10pm5.6 g/dLGlobulinOctober 2024 4:57amOctober 2024 4:57am5.3 g/dLGlucose LevelOct2024 4:57amOctober 2024 4:81yt798 mg/dLAbove high muwqcj82-015Ckvffokns Level June 22, 2025 4:57amOctober 2024 4:57am4.6 mmol/L3.5-5.1Sodium Level June 22, 2025 4:57amOctober 2024 4:83dm971 mmol/LBelow low normal 136-145Total BilirubinOct2024 3:10pmOctober 2024 3:10pm0.6 mg/dL 0.2-1.0Total BilirubinOctober 2024 4:57amOctober 2024 4:57am0.6 mg/dL 0.2-1.0Total ProteinOct2024 3:10pmOctober 2024 3:10pm7.3 g/dL 6.4-8.2Total ProteinOct2024 4:57amOctober 2024 4:57am6.7 g/dL 6.4-8.2 Microbiology Results Procedure Source Result Collection Date/Time Result Date/Time Result Comment Performing Site Urine Culture Urine, Clean-Voided Midstream No Growth 2 Days June 21, 2025 3:50pm June 24, 2025 10:38am [facility] [id number] [address] [place] [address] Vital Signs Vital Reading Result Reference Range Collection Date/Time Height 70 [in_i] June 12, 2025 2:45meWisrvy110.13 kgSeptember 2024 2:12pmBody Pbkjnhuzans71.1 [degF]97.6-99.0September 2024 2:12pmHeart Cqfk727 /min 60-100September 2024 2:12pmRespiratory rate18 /bsp96-27Fhykixaqw 2024 2:12pmOxygen saturation by Pulse osxredby46 %95-100September 2024 2:12pmBP Kqbipyox852 mm[Hg]100-140September 2024 2:12pmBP Bpwajwgje81 mm[Hg]60-100September 2024 2:12pmBMI (Body Mass Index)32.6 kg/j0Buzxvbsad 2024 2:60ifPbxjoz75 [in_i]June 26, 2025 2:34bmYfkcfp127.00 kgOctober 2024 5:23amBody Iqhxtruyyru83.4 [degF]97.6-99.0Oct2024 3:11pm Heart Ghqu200 /baf71-845Csqfeoo 6th, 2025 3:11pmRespiratory rate18 /vfh30-53 June 26, 2025 3:11pmOxygen saturation by Pulse zvfwwidz86 %95-100Oct2024 3:11pmBP Envjnyms481 mm[Hg]100-140Oct2024 3:11pmBP Diastolic 80 mm[Hg]60-100Oct2024 3:11pmInhaled oxygen uhtxksdgvvdhm49 %June 26, 2025 12:00amInhaled oxygen flow rate2 L/minOctober 2024 10:00amHeight 70 [in_i]June 29, 2025 12:59cbUoluab79.25 kgOctober 2024 12:03pmBody Pxwutsviapw11.1 [degF]97.6-99.0October 2024 12:03pmHeart Nalk225 /tuv91-606 June 29, 2025 12:03pmRespiratory rate20 /xcv58-87Euqncod 9th, 2025 12:03pm Oxygen saturation by Pulse jtryinwf17 %95-100October 2024 12:03pmBP Ezmoyrad533 mm[Hg]100-140Oct2024 12:03pmBP Kuxhegrkk60 mm[Hg]60-100 June 29, 2025 12:03pmBMI (Body Mass Index)30.1 kg/t9Jbqqpae 2024 12:03pm Advance Directives Advance Directive Response Recorded Date/ Time Advance Directives No August 7:33pm Insurance Providers Guarantor Reymundo Enriquezrosa Address [address] [address]Mlrbzjh Info.Home Phone: Payer Policy Id Subscriber's Name Subscriber Id Effectiv e Date Expiration Date Marissa CONTEH/SALVATORE [id number] Reymundo Patino [id number] Encounters Encounter Location(s) Arrival/Admit Date Discharge/Depart Date Provider(s) Departed Physician/Prov ider Office Visit -[facility] Family Medicine Noti June 12, 2025 1:37pm June 12, 2025 2:59pm Lloyd Mason MD Non-patient / Non-visit -[facility] O ctober 2024 3:28pm Anna Manzanares , MDDeparted Referred-LAB [facility] 3:50pmOctober 2024 3:51pmAnna Manzanares MDNon-patient / [facility]October 2024 3:06amHoracio Hunter-patient / Lgy[facility]October 2024 1:50pmGeblas Tee MDDeparted Physician/Provider Office Visit-[facility] Family Medicine Noti June 29, 2025 11:31amOctober 2024 12:41pmLloyd Mason MD Recent Diagnosis Onset Date Admit Date Benign essential hypertension Unknown Se ptember 2024 1:37pm Class 1 obesity due to exces s calories with serious comorbidity and body ma Unknown June 12, 2025 1 :37pm Hypersomnia Unknown June 12, 2025 1:37pm Type 2 diabetes mellitus wit h diabetic neuropathy, without long-term curren Unknown June 12 1:37pm Type 2 diabetes mellitus wit h hyperglycemia, without long-term current use Unknown June 12, 2025 1:3 7pm Acute respiratory failure wi th hypoxia and hypercapnia Unknown June 22, 2025 1:50pm TYLOR (acute kidney injury) Unknown Octobe r 2024 1:50pm Elevated troponin Unknown October 2nd, 2 025 1:50pm Elevation of levels of liver transaminase levels Unknown June 22, 2025 1:50pm Hyponatremia Unknown June 22 1:50pm Obstructive sleep apnea Unknown June 22, 2025 1:50pm Pneumonia Unknown June 22 1:50pm Sepsis Unknown June 22 1:50pm Thrombosis, superior sagittal sinus Unknown June 22, 2025 1:50pm Urinary retention Unknown June 22 025 1:50pm Benign essential hypertension Unknown Oc tober 2024 11:31am Cigarette smoker Unknown June 29 11:31am General weakness Unknown June 29 11:31am Type 2 diabetes mellitus wit h hyperglycemia, without long-term current use Unknown June 29, 2025 11:31a m Assessments Diagnosis Onset Date Resolution Status Admit Date Benign essential hypertension acuteSeptember 2024 1:37pmClass 1 obesity due to excess calories with serious comorbidity and body maacuteSeptember 2024 1:37pmHypersomniaacute June 12, 2025 1:37pmType 2 diabetes mellitus with diabetic neuropathy, without long-term currenacuteSeptember 2024 1:37pmType 2 diabetes mellitus with hyperglycemia, without long-term current useacuteSeptember 2024 1:37pmAcute respiratory failure with hypoxia and hypercapniaresolvedOctober 2024 1:50pmAKI (acute kidney injury)resolvedOctober 2024 1:50pmElevated troponinresolvedOctober 2024 1:50pmElevation of levels of liver transaminase levelsresolvedOctober 2024 1:50pmHyponatremiaresolvedOctober 2024 1:50pmObstructive sleep apnearesolvedOctober 2024 1:50pmPneumonia resolvedOctober 2024 1:50pmSepsisresolvedOctober 2024 1:50pm Thrombosis, superior sagittal sinusresolvedOctober 2024 1:50pmUrinary retentionresolvedOctober 2024 1:50pmBenign essential hypertensionacute June 29, 2025 11:31amCigarette smokeracuteOctober 2024 11:31amGeneral weaknessacuteOctober 2024 11:31amType 2 diabetes mellitus with hyperglycemia, without long-term current useacuteOctober 2024 11:31am Plan of Treatment Author Lloyd Mason [facility] HospitalAuthoredSeptember 2024 4:55pmReports BS remains elevated and add ozempic. Stick to ADA diet and limit carbs. BP controlled and monitor PRN. Developed neuropathy and start neurontin. Need to control BS to help symptoms. Continues to have signs of VERONA and check sleep study. Weight up 12 pounds. Discussed proper diet and regular aerobic exercise. Recommend Weight Watchers and need to limit calories and smaller portions. Need to increase activity and regular aerobic exercise several days a week for 30 minutes at a time. Future Tests Future scheduled test information is unavailable Pending Tests Pending diagnostic test information is unavailable Future Visits Future appointment information is unavailable Referrals to Other Providers Reason for Referral Referral Start Date Provider Jah pope Contact Information Provider Address You have been scheduled for a follow up appointment for the following date and time, please call to reschedule if needed.Lloyd Mason MDWork Phone: [phone] Andrés Funes [facility] [address]Uwkugy Moises Tee MDWork Phone: [phone] [facility] [facility] [id number] - WeaknessOctober 2024Determined by Patient Future Procedures Procedure Name Ordered Date Scheduled Date Hepatic Panel June 26, 2025 12:53pm 2 Week s Admit Status Order June 22, 2025 2:24pm Octo 2024 2:24pm Consult to Case Management June 22, 2025 3:1 9pm June 22, 2025 3:19pm Discharge Order June 26, 2025 1:04pm June 26, 2025 1:04pm Consult to Neurosurgery June 23, 2025 7:49am June 23, 2025 7:49am Consult to Pulmonology June 22, 2025 2:24pm June 22, 2025 2:24pm Consult to Pulmonology June 22, 2025 2:08pm June 22, 2025 2:08pm Future Medications Future medication information is unavailable Patient Instructions Instruction Admit Date Community-acquired pneumonia in adults How to take anticoagulants safely Know your MedsOctober 2024 1:50pm
--- OUTSIDE RECORDS SUMMARY | 2025-07-13 14:14 | XMS_ITS | Clinical Summary ---
Author Organization [facility] Address [id number] [address] [place] [address] Care Team Providers Care Health And Wellness Coach Name Role Phone Unavailable Primary Care Provider Unavailabl e Encounters DateTypeDepartmentCare BsqvIqekornzyvr84/09/2025Telephone [facility] - Sleep Disorders [address] [place] [address] Lloyd Mason MD Sleep Lab (Psg Order)06/23/2025 2:16 PM EDT - 06/25/2025 7:14 AM EDTEmergency [facility] [address] [place] [phone] Discharge Disposition: Telemedicine Sqnezeddg71/03/2025Orders Only [facility] [address] [place] [id number] External, Scanning Provider Pain (Primary Dx)06/22/2025 5:55 PM EDTAncillary Procedure [facility] [address] [place] [address] Pain06/21/2025 5:10 PM EDTAncillary Procedure [facility] [place] [address] Painfrom Last 3 Months Social History Tobacco UseTypesPacks/DayYears UsedDateSmoking Tobacco: Never AssessedChildcare AnswerDate FlghcbvtTezeowlccAepgztb35/12/2019EmploymentAnswerDate Recorded WuotvfwulwGdobuhq09/12/2019Sex and Gender InformationValueDate RecordedSex Assigned at BirthNot on fileLegal IwqAacb0704/26/2015 11:57 AM EDTGender Identity Not on fileSexual OrientationNot on file Plan of Treatment Health MaintenanceDue DateLast DoneCommentsDepression Qnfbdkywc65/26/1995Tobacco Lamgwpvdz91/26/1995Adult BMI Fnmmsbqxj07/26/2001DTaP,Tdap and Td Vaccines (1 - Tdap)2002Influenza Wqfeyss8205/22/2025 Medical Devices Not on file Procedures Procedure NamePriorityDate/TimeAssociated DiagnosisCommentsMR MRV HEAD WO CONT Zxtwspj3406/22/2025 5:[address] BRAIN WO GYEUUzisjux62/01/2025 5:10 PM EDT Pain from Last 3 Months Results * MRV head without contrast (06/22/2025 5:55 PM EDT)Specimen (Source)Anatomical Location / LateralityCollection Method / VolumeCollection TimeReceived Time Narrative Authorizing ProviderResult TypeResult StatusScanning Provider ExternalIMG MRI ORDERABLESFinal Result * CT brain without contrast (06/21/2025 5:10 PM EDT)Specimen (Source)Anatomical Location / LateralityCollection Method / VolumeCollection TimeReceived Time Narrative Authorizing ProviderResult TypeResult StatusScanning Provider ExternalIMG CT ORDERABLESFinal Result from Last 3 Months Insurance
--- OUTSIDE RECORDS SUMMARY | 2025-07-13 14:14 | XMS_ITS | Clinical Summary ---
Author Organization [facility] Address [address] [place] [address] Care Team Providers Care Cardiovascular Physician Assistant Name Role Phone Lloyd Mason MD Primary Care Provider [phone] Lloyd Mason MD Unavailable Allergies Active AllergyReactionsCriticalityNoted LcorOxfbpxqrGsfpwgpyfmGsaag16/29/2023 Medications MedicationSigDispense QuantityRefillsLast FilledStart DateEnd DateStatus naproxen (EC Naprosyn) 500 MG EC tablet Take 500 mg by mouth in the morning and 500 mg in the evening. Take with meals. Do not crush, chew,or split. .Active Blood Glucose Monitoring Suppl device 1 Device 1 (one) time each day.Active OneTouch Ultra test strip USE 1 STRIP DAILY09/08/2022ctive Lancets (OneTouch Delica Plus Pzwxdp16P) misc USE ONCE DAILY09/08/2022ctive Blood Glucose Monitoring Suppl (ONE TOUCH ULTRA 2) w/Device kit 1 (ONE) KIT CHECK BLOOD GLUCOSE DAILY09/08/2022ctive glipiZIDE (Glucotrol) 10 MG tablet Indications:Type 2 diabetes mellitus with hyperglycemia, without long-term current use of insulin (HCC)Take 1 tablet (10 mg) by mouth Daily 30 tablet 5Active losartan (Cozaar) 50 MG tablet Indications:Primary hypertensionTake 1 tablet (50 mg) by mouth Daily 100 tablet 506Active sildenafil (Viagra) 50 MG tablet Indications:Erectile dysfunction, unspecified erectile dysfunction typeTAKE 1 TABLET (50 MG) BY MOUTH DAILY 30 tablet 5Active Active Problems ProblemNoted DateDiagnosed DateType 2 diabetes mellitus with diabetic microalbuminuria, without long-term current use of bpqyijb9503/20/2025Dyslipidemia 02/02/20258104Aquiqttxkdi48/15/2025 Assessment & Plan (02/02/2025 3:25 PM EDT): Signs of VERONA and check sleep study. Primary xhgjbnzheudy83/29/2023 Assessment & Plan (02/02/2025 3:25 PM EDT): [...] potassium/creatinine is normal Type 2 diabetes mellitus with hyperglycemia, without long-term current use of uzqhhwo3708/19/2023 Assessment & Plan (02/02/2025 3:25 PM EDT): [...] to office/pharmacy if questions or concerns related tonew medications. Will call in 7 mg PO daily dosing from 2nd month. Starting on SGLT2 due to accompanying obesity to help with weight loss. Patient is afraid of needles and would prefer PO medication rather than injectable. Class 1 obesity due to excess calories with body mass index (BMI) of 30.0 to 30.9 in adult08/19/2023 Assessment & Plan (02/02/2025 3:24 PM EDT): [...] to help with weight loss Abnormal liver nvzokwf1108/19/2023 Assessment & Plan (08/19/2023 4:31 PM EST): Abnormal liver enzymes - AST/ALT in 200 previously when he had labs but follow up testing and labs were not done by patient. Will check Liver enzymes to monitor/ and follow up. US liver in 22 -- NAFLD. Tobacco fmxvoywtlx53/29/2023 Assessment & Plan (08/19/2023 4:32 PM EST): [...] spent on Smoking/Tobacco use counseling. Annual physical exam08/19/2023 Assessment & Plan (02/02/2025 3:24 PM EDT): [...] - has hx of T2DM, obesity. Erectile kuwlujyovlz77/29/2023 Assessment & Plan (08/19/2023 4:33 PM EST): Uses viagra as needed. Works well for him. C/w same. Resolved Problems ProblemNoted DateDiagnosed DateResolved DateScreening for hyperlipidemia / Assessment & Plan (08/19/2023 4:30 PM EST): [...] should help with weight loss too. Encounters DateTypeDepartmentCare AgvxRqguqetivcg84/01/2025Refill [facility] [address] [place] [address] Lloyd Mason MD Erectile dysfunction, unspecified erectile dysfunction typefrom Last 3 Months Family History Medical HistoryRelationNameCommentsDiabetesFatherCancerMotherRelationNameStatus CommentsFatherAliveMotherAlive Social History Tobacco UseTypesPacks/DayYears UsedDateSmoking Tobacco: Every DayCigarettes0.510 Smokeless Tobacco: Never Tobacco Cessation:Ready to Q uit: Yes; Counseling Given: Yes Alcohol UseStandard Drinks/WeekCommentsYes0 (1 standard drink = 0.6 oz pure alcohol)OCCASSIONALLYSex and Gender InformationValueDate RecordedSex Assigned at BirthNot on fileLegal CxeXsug6106/17/2023 2:29 PM EDTGender IdentityNot on file Sexual OrientationNot on file Last Filed Vital Signs Vital SignReadingTime TakenCommentsBlood Uwomolcp457/6605 1:26 PM EDT Srzwr58193/15/2025 1:26 PM NWHBtusfyfnvsf92.2 ??C (97.1 ??F)02/02/2025 1:26 PM EDTRespiratory Rutb251902/02/2025 1:26 PM EDTOxygen Baeayzrrow86%02/02/2025 1:26 PM EDTInhaled Oxygen Concentration--Jjkupu17.5 kg (215 lb)02/02/2025 1:26 PM EDT Ydlndh841.8 cm (5' 10 )02/02/2025 1:26 PM EDTBody Mass Index30.85002/02/2025 1:26 PM EDT Plan of Treatment Health MaintenanceDue DateLast DoneCommentsDiabetes: Hemoglobin A1C1983 Diabetes: Retinopathy Dvqejsqeh33/26/1993Influenza Vaccine (#1)2025 Diabetes: Urine Protein Tfncvyvfn03 Insurance Care Teams Team MemberRelationshipSpecialtyStart DateEnd Date Lloyd Mason MD PCP - GeneralFamily Medicine10/19/24 Lloyd Mason MD [address] [place] [address] PCP - [place] [facility]03/21/25
--- OUTSIDE RECORDS SUMMARY | 2025-07-13 14:14 | XMS_ITS | Continuity of Care Document ---
Author Organization [facility] Address [address] [place] [address] Phone Care Team Providers Care Bowl Attendant Name Role Phone Lloyd Mason MD Primary Care Provider [phone] Lloyd Mason MD Attending Provider Anna Manzanares MD Attending Provider [phone] Pranav Ernandez MD Attending Provider Arthur Odom MD Admit Provider Arthur Odom MD Other Provider Alexis Curran MD Other Provider Sanaz Astudillo RN Other Provider Unavailable Cesar Bowman MD Other Provider Dru Tee MD Attending Provider Dru Tee MD Other Provider [phone] Michelle Crawley MD Other Provider Lata Raygoza APRN Other Provider Care Teams Patient Care Team Team Status: Active Member Role Status Dates Lloyd Mason MD Primary Care Provider Active Visit Care Team Team Status: Inactive Member Role Status Dates Lloyd Mason MD Primary Care Provider Active S tart: June 12, 2025 End: June 12, 2025[facility] Mason MDAttending ProviderActiveStart: June 12, 2025 End: [...] 2025 Prashanth Gagnon ProviderActiveStart: June 22, 2025 Visit Care Team Team Status: Inactive [...] long-term current use June 12, 2025 1:37pm Pneumonia June 22, 2025 1: 50pm Acute respiratory failure with hypoxia a nd hypercapnia June 22, 2025 1:50pm TYLOR (acute kidney injury) June 22 1:50pm Elevated troponin June 22, 2025 1: 50pm Elevation of levels of liver transaminas e levels June 22, 2025 1:50pm Hyponatremia June 22, 2025 1: 50pm Obstructive sleep apnea June 22 1:50pm Sepsis June 22, 2025 1: 50pm Thrombosis, superior sagittal sinus Octo 2024 1:50pm Urinary retention June 22, 2025 1: 50pm Acute cerebral venous sinus thrombosis O ctober 2024 11:31am Benign essential hypertension June 11:31am Cigarette smoker June 29, 2025 11 :31am General weakness June 29, 2025 11 :31am Pneumonia June 29, 2025 11 :31am Type 2 diabetes mellitus wit h hyperglycemia, without long-term current use June 29, 2025 11:31am Reason for Referral Referring Provider Name Referring Provider Address Referring Provider Phone Referral Date Requested Appointment Date Referral Reason Arthur Odom [address] [place] [address]Ayxy Phone: [facility] [address] [place] [address]Ruro Phone[facility] 2024R53.1 - WeaknessYou have been scheduled for [...] Acute cerebral venous sinus thrombosis Unknown Active Pneumonia Unknown Active Class 1 obesity due to [...] Urinary retention Unknown Resolved Sepsis Unknown Resolved Medications Medication Status Dose Units Route Directions Qty Days St art Date Stop Date End Date Instructions Adherence Levofloxacin 750 mg tablet Active 750 MG PO Daily at bedtime June 26, 2025 12:00amnext dose 06/26/25 pmUnknownRivaroxaban (Xarelto) 20 mg gjbhpwRuwxsl87IGVUZdiuu ueenlqq90Tntdiej 2024 12:00ammust administer with evening mealUnknownTelmisartan 80 mg waedkfTklchd47MUXGZeezu83.0October 2024 12:00amUnknownLosartan 50 mg xtjlmiYpgrjxpcjqsc57WRJUPzlvlWikhyvwsu 2024 12:00amOctober 2024 1:01pmSildenafil 50 mg etrwsyEningtufrexu91KYJN Daily as needed for erectile dysfunctionSeptember 2024 12:00amOctober 2024 1:01pmadminister 30 minutes to 4 hours before activityGlipizide 10 mg jpmubjKjvpyd52PNUQXhwfzBhgpplqcy 2024 12:00amUnknownBlood Sugar Diagnostic (Blood Glucose Test) stripDiscontinued0.ROUTESeptember 2024 12:00amOctober 2024 1:01pmAs directed, check Bs once daily One Touch Ultra 2Lancets misc Discontinued0.ROUTESeptember 2024 12:00amOctober 2024 1:01pmAs directed, One Touch Ultra 2, check BS once dailyBlood Ketone Glucose Monitor deviceDiscontinued0.ROUTESeptember 2024 12:00amOctober 2024 1:01pmAs directed, One Touch Ultra 2, check BS once dailySemaglutide (Ozempic) 0.25 mg or 0.5 mg (2 mg/3 mL) pen cgcjidqbCeosbtouqhmx4OUEXRXlvwoj vtsf1Vrgkdcjvn 2024 12:00amOctober 2024 1:01pm0.25 mg weekly x 4 weeks, 0.5 mg weekly Gabapentin 300 mg rlgtapkUwujil788NAJSOmkda at ztzwral36Vqivpqvlv 22nd, 2025 12:00amUnknownNicotine (Nicoderm Cq) 14 mg/24 hr patch 24 jpijLuzmia1DZSWW KDRDURHVTRIqkmn91Jevhaxl 2024 12:00amComplies with drug therapyAlbuterol Sulfate 90 mcg/actuation HFA aerosol zdfbwtlBnuspi9NDAWGNAZCWGZBTBebgl 4 hours as needed for shortness of [...] GAVIN RN Absolute Basophils (Manual)June 21, 2025 3:10pmOctober 2024 3:10pm0.00 10 3/uL0.00-0.10HematocritOct2024 3:10pm37.1 %Below low normal 42.0-54.0Ethyl Alcohol LevelOct2024 3:10pmOctober 2024 3:10pm<3 mg/dLNOTE: 80 mg/dl is the legal limit for a blood alcohol levelLactic Acid LevelOct2024 3:10pmOctober 2024 3:10pm1.8 mmol/L0.4-2.0Prothromb Time International RatioOct2024 3:10pmOctober 2024 3:10pm1.15 DESIRED INR:2.0-3.0 CONDITIONS NOT LISTED BELOW2.5-3.5 FOR PROSTHETIC HEART VALVE REPLACEMENT2.5-3.5 RECURRENT THROMBOSISRSV RNA Qual (PCR)(MISC)June 21, 2025 3:15pmOctober 2024 3:15pmNot DetectedNOT IIPIYSBZGQB-NaQ-8 Ag (CV2AG)June 21, 2025 3:15pmOctober 2024 3:15pmNEGATIVENEGATIVEThis [...] authorization is revoked sooner.Bedside Influenza Type A AntigenOct2024 3:15pmOctober 2024 3:15pmNegativeNegative for Flu A protein antigen. Infection due to Flu Acannot be ruled out. Flu A antigen in thesample may bebelow the detection limit of the test.Nacho TestOct2024 3:28pmOctober 2024 3:28pmPOSITIVE POSITIVEUrine OsmolalityOct2024 3:50pmOctober 2024 3:28li366 mOsmol/kg.24 hr : 300 - 900 Random: 50 - 1400 After 12hr fluid restriction: >850Performed at: [facility] [id number] Director: Leticia Lopez MD, Phone: [phone] Culture ReflexedOctober 2024 3:50pmOctober 2024 3:50pmYES-FRMCUrine Microscopic ReviewOctober 2024 3:50pmYESTroponin I High SensitivityOctober 2024 5:53pmOctober 2024 5:19rv511.8 pg/mLAbove upper panic limits 4.0-76.1RESULTS CALLED TO SHARAD POSADASUT-OFF POINTS HAVE BEEN ESTABLISHED BASED ON THE [...] DIAGNOSTIC AND CLINICAL INFORMATION.OsmolalityOctober 2024 9:57pmOctober 2024 9:59pc742 mOsmol/to773-631Ykimxsftf at: - [facility] [id number] Director: Leticia Lopez MD, Phone: [phone] GapOctober 2024 9:57pmOctober 2024 9:57pm17.2Thyroid Stimulating Hormone 3rd GenOct2024 4:57amOct2024 4:57am0.907 u[iU]/mL0.358-3.740Magnesium LevelOctober 2024 4:57am June 22, 2025 4:57am3.7 mg/dLAbove upper panic limits1.8-2.4RESULTS CALLED TO ROMY CARR RN @BY Kaitlyn Hernandez at 0536Phosphorus LevelOctober 2024 4:57amOctober 2024 4:57am5.3 mg/dLAbove high normal2.6-4.7Anion GapOct2024 4:57amOctober 2024 4:57am18.2Estimated Average Glucose June 22, 2025 4:57amOctober 2024 4:52ur929 mg/dLHematocritOctober 2024 4:57amOctober 2024 4:57am34.6 %Below low jvnviv38.0-54.0Cortisol AM SampleOct2024 4:57amOctober 2024 4:57am39.0 ug/dLAbnormal (applies to non-numeric results)6.2-19.4Performed at: [address] [id number] Director: Cristobal Benjamin PhD, Phone: [phone] A IgM AntibodyOct2024 4:57amOctober , 2024 4:57amNegativeNegativeA negative anti-HAV IgM result suggests no recent orcurrent HAV infection.Nacho TestOctober 2024 5:45amOctober 2024 5:45amPOSITIVEPOSITIVEMiscellaneous TestOctober 2024 10:40amOctober 2024 10:40amCOMMENT.Test Ordered: [id number] Mycoplasma pneumoniaeMycop. pneumoniae by Qual. PCR Comment (M Reference Range: .Reference lab report sent via fax.Performed at: [facility] [address] [place] [id number] Director: Dione Landry MD, Phone: [phone] at: [address] [id number] Director: Cristobal Benjamin PhD, Phone: [phone] %June 21, 2025 3:10pmOct2024 3:10pm0.0 %Below low normal0.2-2.0HemoglobinOct2024 3:10pm13.6 g/dLBelow low wrocfb42.0-18.0Albumin/Globulin RatioOct2024 3:10pm June 21, 2025 3:10pm0.3Prothrombin TimeOct2024 3:10pmOct2024 3:10pm12.0 secAbove high normal9.0-11.6Bedside Influenza Type B Antigen June 21, 2025 3:15pmOctober 2024 3:15pmNegativeNegative for Flu B protein antigen. Infection due to Flu Bcannot be ruled out. Flu B antigen in the sample may bebelow the detection limit of the test.Arterial Blood Base Excess June 21, 2025 3:28pmOctober 2024 3:28pm-1.6 mmol/L<2.0-2.0Urine Other CastsOct2024 3:50pmOctober 2024 3:50pmSEEN #/LPFAbnormal (applies to non-numeric results)NONE SEENUrine BilirubinOct2024 3:50pmNEGATIVE NEGATIVEBUN/Creatinine RatioJune 21, 2025 9:57pmOct2024 9:57pm33.6 Albumin/Globulin RatioOct2024 4:57amOct2024 4:57am0.3 Hemoglobin Q2fVqpjjqy2024 4:57amOct2024 4:57am8.4 %Above high normal4.5-6.2ADA RECOMMENDED LIMIT 4.0 - 6.0ADA THERAPEUTIC TARGET < 7.0ACTION SUGGESTED> 7.0HemoglobinOct2024 4:57amJune 22, 2025 4:57am12.1 g/dLBelow low hwojjk52.0-18.0Hepatitis B Surface AntigenOct2024 4:57am June 22, 2025 4:57amNegativeNegativeArterial Blood Base ExcessJune 22, 2025 5:45amOct2024 5:45am-5.5 mmol/LBelow low normal<2.0-2.0 Eosinophils # (Manual)June 21, 2025 3:10pmOct2024 3:10pm0.00 10 3/uL0.00-0.70Mean Corpuscular HemoglobinOct2024 3:10pm33.4 pg25.9-34.0 AlbuminOct2024 3:10pmOctober 2024 3:10pm1.7 g/dLBelow low normal 3.4-5.0Arterial Blood COI2Lmobcgk2024 3:28pmOct2024 3:28pm23.5 mmol/L22.0-26.0Urine Other CrystalsOctober 2024 3:50pmOctober 2024 3:50pmSeen #/HPFAbnormal (applies to non-numeric results)None SeenUrine Occult BloodOctober 2024 3:50pmLARGEAbnormal (applies to non-numeric results) NEGATIVEBlood Urea NitrogenOctober 2024 9:57pmOctober 2024 9:57pm41.0 mg/dLAbove high normal7.0-18.0AlbuminOctober 2024 4:57amOctober 2024 4:57am1.4 g/dLBelow low normal3.4-5.0Mean Corpuscular HemoglobinOctober 2024 4:57amOctober 2024 4:57am33.3 pg25.9-34.0Hepatitis B Core IgM Antibody June 22, 2025 4:57amOctober 2024 4:57amNegativeNegativeBlood Gas Mode BiPAPOctober 2024 5:45amOctober 2024 5:45am16/8Eosinophils %June 21, 2025 3:10pmOctober 2024 3:10pm0.0 %Below low normal0.9-7.0Mean Corpuscular Hemoglobin ConcentOctober 2024 3:10pm36.7 g/dLAbove high normal 29.9-35.2Alkaline PhosphataseOctober 2024 3:10pmOctober 2024 3:00lp837 U/LAbove high lelwmj58-983Timky Gas Liter FlowOctober 2024 3:28pmOctober 2024 3:79ts8Nxnor Amorphous SedimentOctober 2024 3:50pmOctober 2024 3:50pmFEWUrine AppearanceOctober 2024 3:50pmCLEARCLEARCalcium Level June 21, 2025 9:57pmOctober 2024 9:57pm7.3 mg/dLBelow low normal 8.5-10.1Alkaline PhosphataseOctober 2024 4:57amOctober 2024 4:82pj665 U/LAbove high vvuomq85-671Wlhl Corpuscular Hemoglobin ConcentOct2024 4:57amOctober 2024 4:57am35.0 g/dL29.9-35.2Hepatitis C AntibodyOct2024 4:57amOctober 2024 4:57amNon ReactiveNon MdzfzjcsUsC6Ledwxxk 2nd, 2025 5:45amOctober 2024 5:45am40 %Lymphocytes # (Manual)June 21, 2025 3:10pmOctober 2024 3:10pm0.43 10 3/uLBelow low normal1.20-3.80Mean Corpuscular VolumeOct2024 3:10pm91.2 fL80.0-94.0Alanine Aminotransferase (ALT/SGPT)June 21, 2025 3:10pmOctober 2024 3:10pm84 U/LAbove high ukrekz25-28Jltlcg Delivery DeviceOct2024 3:28pmOctober 2024 3:28pmNCUrine BacteriaOct2024 3:50pmOctober 2024 3:50pm SMALL #/HPFAbnormal (applies to non-numeric results)NONE SEENUrine ColorOct2024 3:50pmYELLOWYELLOWChloride LevelOct2024 9:57pmOctober 2024 9:57pm89 mmol/LBelow low ijfljw30-573Efdhv Gas Liter FlowOct2024 3:06amOct2024 3:07ca81Fxydxfh Aminotransferase (ALT/SGPT)June 22, 2025 4:57amOctober 2024 4:57am81 U/LAbove high flbfow33-05Xjbo Corpuscular VolumeOct2024 4:57amOctober 2024 4:57am95.3 fLAbove high normal 80.0-94.0Hepatitis B Interpretation.June 22, 2025 4:57amOctober 2024 4:57amComment.Not infected with HCV unless early or acute infection issuspected (which may be delayed in an immunocompromisedindividual), or other evidence exists to indicate HCVinfection.Performed at: [facility] [id number] [place], [place] [id number] Director: Cristobal Benjamin PhD, Phone: [phone] Arterial Blood LAH9Gagxcoz2024 5:45amOct, 2024 5:45am21.9 mmol/L Below low uiwakd12.0-26.0Lymphocytes %June 21, 2025 3:10pmOctober 2024 3:10pm2.0 %Below low gdoygp55.5-60.0Mean Platelet VolumeOct2024 3:10pm 11.2 fL9.5-13.5Aspartate Amino Transf (AST/SGOT)June 21, 2025 3:10pmOct2024 3:05hi877 U/LAbove high -78Xdmpnvxe Blood Oxygen Saturation June 21, 2025 3:28pmOct2024 3:28pm97.3 %Urine Coarse Granular CastsOct2024 3:50pmOct2024 3:50pmMODERATEUrine Glucose (UA) June 21, 2025 3:50pmNEGATIVE mg/dLNEGATIVECarbon Dioxide LevelOct2024 9:57pmOct2024 9:57pm21.3 mmol/L21.0-32.0Aspartate Amino Transf (AST/SGOT)June 22, 2025 4:57amOctober 2024 4:85gb016 U/LAbove high dvukns11-24Ukib Platelet VolumeOct2024 4:57amOct2024 4:57am 11.1 fL9.5-13.5Oxygen Delivery DeviceOct2024 5:45amOct2024 5:45amBIPAPMonocytes # (Manual)June 21, 2025 3:10pmOct2024 3:10pm 0.87 10 3/uLAbove high normal0.30-0.80Platelet CountOct2024 3:62ce282 10 3/uZ625-862Affnfuor Blood Partial Pressure WD7Zwzqyzy2024 3:28pmOct2024 3:28pm39.2 mm[Hg]35.0-45.0Urine Hyaline CastsOct2024 3:50pm June 21, 2025 3:50pmRAREUrine KetonesOctober 2024 3:50pmTRACE mg/dL Abnormal (applies to non-numeric results)NEGATIVECreatinineOct2024 9:57pmOctober 2024 9:57pm1.22 mg/dL0.70-1.30BUN/Creatinine RatioOct2024 4:57amOctober 2024 4:57am32.0Platelet CountOct2024 4:57amOctober 2024 4:23tt052 10 3/bG599-924Cjxjyrpp Blood Oxygen Saturation June 22, 2025 5:45amOct2024 5:45am96.5 %Monocytes %June 21, 2025 3:10pmOctober 2024 3:10pm4.0 %1.7-12.0Red Blood CountOctober 2024 3:10pm4.07 10 6/uLBelow low normal4.70-6.10Arterial Blood pHOctober 2024 3:28pmOct2024 3:28pm7.3857.350-7.450Urine MucusOct2024 3:50pmOctober 2024 3:50pmTRACEAbnormal (applies to non-numeric results)NONE SEENUrine Leukocyte EsteraseOctober 2024 3:50pmTRACEAbnormal (applies to non-numeric results)NEGATIVEEstimated GFR ()June 21, 2025 9:57pmJune 21, 2025 9:57pm>60>=60 mL/min/1.73m 2Blood Urea NitrogenJune 22, 2025 4:57amJune 22, 2025 4:57am57.0 mg/dLAbove high normal7.0-18.0Red Blood CountJune 22, 2025 4:57amJune 22, 2025 4:57am3.63 10 6/uLBelow low normal4.70-6.10Arterial Blood Partial Pressure TJ5Pppbqtn 2024 5:45am June 22, 2025 5:45am51.0 mm[Hg]Above upper panic xwaoef79.0-45.0RESULTS CALLED TO ROMY CARR RN @BY Kaitlyn Hernandez at 0557Segmented Neutrophils # (Manual)June 21, 2025 3:10pmOctober , 2024 3:10pm20.49 10 3/uLAbove high normal1.4-6.5Red Cell Distribution WidthOctober 2024 3:10pm 12.3 %11.0-15.0Arterial Blood Partial Pressure R7Njohunf 2024 3:28pmOctober , 2024 3:28pm81.8 mm[Hg]80.0-100.0Urine RBCOctober 2024 3:50pmOctober 2024 3:74xh8-6 #/HPFAbnormal (applies to non-numeric results)0-2Urine NitriteOctober 2024 3:50pmNEGATIVENEGATIVEEstimated GFR (Non- AmericanOctober , 2024 9:57pmOctober , 2024 9:57pm>60>=60 mL/min/1.73m 2 Calcium LevelOctober , 2024 4:57amOctober , 2024 4:57am7.5 mg/dLBelow low normal8.5-10.1Red Cell Distribution WidthOctober 2024 4:57amOctober , 2024 4:57am13.1 %11.0-15.0Arterial Blood pHOctober 2024 5:45amOctober 2024 5:45am7.240Below lower panic limits7.350-7.450RESULTS CALLED TO ROMY CARR RN @BY Kaitlyn Hernandez at 0557Segmented NeutrophilsOctober 2024 3:10pmOctober 2024 3:10pm94.0Above high wghceq28.0-75.0Corrected White Blood CountOctober 2024 3:10pm21.8 10 3/uLAbove high normal4.0-11.0Blood Gas Sample SiteOctober 2024 3:28pmOctober , 2024 3:28pmLRUrine Squamous Epithelial CellsOctober 2024 3:50pmOctober 2024 3:50pmFEW #/LPF Abnormal (applies to non-numeric results)NONE/RAREUrine pHOctober 2024 3:50pm6.05.0-9.0Glucose LevelOctober 2024 9:57pmOctober 2024 9:99ol436 mg/dLAbove high kphxuz59-542Gggftnur LevelOct2024 4:57amOctober 2024 4:57am93 mmol/LBelow low kyryki76-532Nemxkwmmq White Blood CountOctober 2024 4:57amOctober 2024 4:57am23.4 10 3/uLAbove high normal4.0-11.0 Arterial Blood Partial Pressure R3Tvzrhvy2024 5:45amOctober 2024 5:45am84.7 mm[Hg]80.0-100.0Urine WBCOctober 2024 3:50pmOctober 2024 3:57tr7-1 #/HPFAbnormal (applies to non-numeric results)NONE SEENUrine Protein June 21, 2025 3:98dh875 mg/dLAbnormal (applies to non-numeric results) NEG/TRACEPotassium LevelOctober 2024 9:57pmOctober 2024 9:57pm3.5 mmol/L3.5-5.1Carbon Dioxide LevelOctober 2024 4:57amOctober 2024 4:57am21.4 mmol/L21.0-32.0Blood Gas Sample SiteOct2024 5:45amOct2024 5:45amL RADIALUrine Specific GravityOct2024 3:50pm1.025 1.005-1.025Sodium LevelOctober 2024 9:57pmOctober 2024 9:51au981 mmol/LBelow lower panic cmnnna742-638DJAYXWT CALLED TO ROMY CARR RN CreatinineOctober 2024 4:57amOctober 2024 4:57am1.78 mg/dLAbove high normal0.70-1.30Urine UrobilinogenOctober 2024 3:50pm1.0 EU/dL0.2-1.0 Estimated GFR ()June 22, 2025 4:57amOctober 2024 4:57am 51Below low normal>=60 mL/min/1.73m 2Estimated GFR (Non- AmericanJune 22, 2025 4:57amOctober 2024 4:11lc28Fqlex low normal>=60 mL/min/1.73m 2 GlobulinOct2024 3:10pmOctober 2024 3:10pm5.6 g/dLGlobulinOct2024 4:57amOctober 2024 4:57am5.3 g/dLGlucose LevelOct2024 4:57amOctober 2024 4:52ps506 mg/dLAbove high inckha92-004Kcnfnhiau Level June 22, 2025 4:57amOctober 2024 4:57am4.6 mmol/L3.5-5.1Sodium Level June 22, 2025 4:57amOctober 2024 4:95uv303 mmol/LBelow low normal 136-145Total BilirubinOct2024 3:10pmOctober 2024 3:10pm0.6 mg/dL 0.2-1.0Total BilirubinOctober 2024 4:57amOctober 2024 4:57am0.6 mg/dL 0.2-1.0Total ProteinOct2024 3:10pmOctober 2024 3:10pm7.3 g/dL 6.4-8.2Total ProteinOct2024 4:57amOctober 2024 4:57am6.7 g/dL 6.4-8.2 Microbiology Results Procedure Source Result Collection Date/Time Result Date/Time Result Comment Performing Site Urine Culture Urine, Clean-Voided Midstream No Growth 2 Days June 21, 2025 3:50pm June 24, 2025 10:38am [facility] [id number] [address] [place] [id number] Vital Signs Vital Reading Result Reference Range Collection Date/Time Height 70 [in_i] June 12, 2025 2:81paHzvxjy686.13 kgSept2024 2:12pmBody Wriuybusmiu46.1 [degF]97.6-99.0September 2024 2:12pmHeart Yuso487 /min 60-100September 2024 2:12pmRespiratory rate18 /iky19-33Strgmcocu 2024 2:12pmOxygen saturation by Pulse rchiytkl33 %95-100September 2024 2:12pmBP Jywcrhbq567 mm[Hg]100-140September 2024 2:12pmBP Eugqfpgjy11 mm[Hg]60-100September 2024 2:12pmBMI (Body Mass Index)32.6 kg/v2Mtdbwrtkl 2024 2:19icSppkit81 [in_i]June 26, 2025 2:21fbVfravr826.00 kgOctober 2024 5:23amBody Iqfexkjfhcx63.4 [degF]97.6-99.0Oct2024 3:11pm Heart Wyiw273 /svi44-874TrkkxahJune 26, 2025 3:11pmRespiratory rate18 /ldb95-05 June 26, 2025 3:11pmOxygen saturation by Pulse zjxcbucj03 %95-100Oct2024 3:11pmBP Gnzirdyx284 mm[Hg]100-140June 26, 2025 3:11pmBP Diastolic 80 mm[Hg]60-100Oct2024 3:11pmInhaled oxygen ycsgkjwgippjm57 %June 26, 2025 12:00amInhaled oxygen flow rate2 L/minOctober 2024 10:00amHeight 70 [in_i]June 29, 2025 12:26huQrhkhd02.25 kgOctober 2024 12:03pmBody Eismollmdbh75.1 [degF]97.6-99.0October 2024 12:03pmHeart Wlke396 /uve61-031 June 29, 2025 12:03pmRespiratory rate20 /kug32-21Kbmgnyt 9th, 2025 12:03pm Oxygen saturation by Pulse uqfhabdm88 %95-100October 2024 12:03pmBP Ikmbiupx701 mm[Hg]100-140Oct2024 12:03pmBP Qnhrqdplm79 mm[Hg]60-100 June 29, 2025 12:03pmBMI (Body Mass Index)30.1 kg/f4Vbztvix 2024 12:03pm Advance Directives Advance Directive Response Recorded Date/ Time Advance Directives No August 7:33pm Insurance Providers Guarantor Reymundo Patino Address [address] [address]Noghnu[employer] Info.Home Phone: Payer Policy Id Subscriber's Name Subscriber Id Effectiv e Date Expiration Date Marissa CONTEH/SALVATORE [id number] Reymundo Patino [id number] Encounters Encounter Location(s) Arrival/Admit Date Discharge/Depart Date Provider(s) Departed Physician/Prov ider Office Visit -[facility] [place] June 12, 2025 1:37pm June 12, 2025 2:59pm Lloyd Mason MD Non-patient / Non-visit -[facility] O ctober 2024 3:28pm Anna Manzanares , MDDeparted Referred-[facility] 2024 3:50pmOctober 2024 3:51pmAnna Manzanares MDNon-patient / Lsg-fgogx-[facility] CoOctober 2024 3:06amPranav Ernandez MDNon-patient / Pqg-hwome-[facility] 2024 1:50pmMissyormissy Tee MDDeparted Physician/Provider Office Visit-[facility] [place] June 29, 2025 11:31amOctober 2024 12:41pmLloyd Mason MD Recent Diagnosis Onset Date Admit Date Benign essential hypertension Unknown Se ptember 2024 1:37pm Class 1 obesity due to exces s calories with serious comorbidity and body ma Unknown June 12, 2025 1 :37pm Hypersomnia Unknown June 12, 2025 1:37pm Type 2 diabetes mellitus wit h diabetic neuropathy, without long-term curren Unknown June 12 025 1:37pm Type 2 diabetes mellitus wit h hyperglycemia, without long-term current use Unknown June 12, 2025 1:3 7pm Pneumonia Unknown June 22 1:50pm Acute respiratory failure wi th hypoxia and hypercapnia Unknown June 22, 2025 1:50pm TYLOR (acute kidney injury) Unknown Octobe r 2024 1:50pm Elevated troponin Unknown June 22 025 1:50pm Elevation of levels of liver transaminase levels Unknown June 22, 2025 1:50pm Hyponatremia Unknown June 22 1:50pm Obstructive sleep apnea Unknown June 22, 2025 1:50pm Sepsis Unknown June 22 1:50pm Thrombosis, superior sagittal sinus Unknown June 22, 2025 1:50pm Urinary retention Unknown June 22 025 1:50pm Acute cerebral venous sinus thrombosis Unknown June 29, 2025 11:31am Benign essential hypertension Unknown Oc tober 2024 11:31am Cigarette smoker Unknown June 29 11:31am General weakness Unknown June 29 11:31am Pneumonia Unknown June 29 11:31am Type 2 diabetes [...] with hyperglycemia, without long-term current useacuteSeptember 2024 1:37pmPneumoniaacuteOctober 2024 1:50pmAcute respiratory failure with hypoxia and hypercapniaresolvedOctober 2024 1:50pmAKI (acute kidney injury) resolvedOct2024 1:50pmElevated troponinresolvedOctober 2024 1:50pmElevation of levels of liver transaminase levelsresolvedOctober 2024 1:50pmHyponatremiaresolvedOctober 2024 1:50pmObstructive sleep apnea resolvedOctober 2024 1:50pmSepsisresolvedOctober 2024 1:50pm Thrombosis, superior sagittal sinusresolvedOctober 2024 1:50pmUrinary retentionresolvedOctober 2024 1:50pmAcute cerebral venous sinus thrombosis acuteOctober 2024 11:31amBenign essential hypertensionacuteOctober 2024 11:31amCigarette smokeracuteOctober 2024 11:31amGeneral weaknessacute June 29, 2025 11:31amPneumoniaacuteOctober 2024 11:31amType 2 diabetes mellitus with hyperglycemia, without long-term current useacuteOctober 2024 11:31am Plan of Treatment Author Lloyd Mason [facility] CenterAuthoredSeptember 2024 4:55pmReports BS remains elevated and add [...] week for 30 minutes at a time. Author Lloyd Mason [facility] CenterAutB[facility] 2024 1:08pmSevere weakness after prolonged hospital stay and start PT. Off work 06/19-07/10. BS stable and monitor PRN. BP controlled and monitor. Start patches. Found thrombosis and on Xarelto. Will take anticoagulation for 6 months then will need hypercoagulable workup. Recent pneumonia and improved with antibiotics. Monitor and use albuterol PRN. Future Tests Future scheduled test information is [...] to reschedule if needed.Lloyd Mason MDWork Phone: [phone] [place] [address]Jmhnwqblas Tee MDWork Phone: [phone] [facility], [address] [place] [id number] - WeaknessOctbaptist health [facility] 2024Determined by Patient Future Procedures Procedure Name Ordered Date Scheduled Date Hepatic Panel June 26, 2025 12:53pm 2 Week s Admit Status Order June 22, 2025 2:24pm Octo rolando 2024 2:24pm Consult to Case Management June [...]
--- OUTSIDE RECORDS SUMMARY | 2025-07-13 14:14 | XMS_ITS | Encounter Summary ---
Author Organization [facility] tem Address [id number] [address] [place] [address] Care Team Providers Care Skeet Operator Name Role Phone Unavailable Primary Care Provider Unavailabl e Reason for Visit * ReasonOnset DateCommentsSleep Lab06/29/2025Psg Order Encounter Details DateTypeDepartmentCare Team (Latest Contact Info)Wjdetpsbatg12/09/2025Telephone [facility] Division of [facility] - Sleep Disorders [address] [place] [id number] Lloyd Mason MD [address] [place] [address] Sleep Lab (Psg Order) Social History Tobacco UseTypesPacks/DayYears UsedDateSmoking Tobacco: Never AssessedChildcare AnswerDate DxrqcfxjXmmyyhxykJrkpujn76/12/2019EmploymentAnswerDate Recorded SdsmxkhxwlIehlnlj54/12/2019Sex and Gender InformationValueDate RecordedSex Assigned at BirthNot on fileLegal OjfHjwz4304/26/2015 11:57 AM EDTGender Identity Not on fileSexual OrientationNot on filedocumented as of this encounter Miscellaneous Notes * Telephone Encounter - [facility] - 06/29/2025 2:16 PM EDT Order Deferred 06/29 Order received Called to schedule pt he will call back when he decides which facility he would like to go to PSG order and 06/12 Isabella notes in MM documented in this encounter Plan of Treatment Not on file documented as of this encounter Visit Diagnoses Not on filedocumented in this encounter
== END 2025-07-12 14:01 | disposition home or self-care (01) ==
LOC: SLEEP 07-13 14:10
PROVIDERS: PCP Family Medicine; Visit Provider Family Medicine
DX: G47.33 Obstructive sleep apnea (adult) (pediatric) (principal)
CPT/HCPCS: 95806

== ENCOUNTER 2025-09-11 19:47 | Outpatient (OUT) | payer BC, SELFPAY ==
--- OUTSIDE RECORDS SUMMARY | 2025-08-28 10:11 | XMS_ITS | Continuity of Care Document ---
Author Organization [facility] Address [address] [place] [address] Phone Care Team Providers Care Candle Pourer Name Role Phone Lloyd Mason MD Primary Care Provider Lloyd Mason MD Attending Provider [phone] Anna Manzanares MD Attending Provider Pranav Ernandez MD Attending Provider Arthur Odom MD Admit Provider Arthur Odom MD Other Provider Alexis Curran MD Other Provider Sanaz Astudillo RN Other Provider Unavailable Cesar Bowman MD Other Provider Dru Tee MD Attending Provider Dru Tee MD Other Provider Michelle Crawley MD Other Provider [phone] Lata Raygoza APRN Other Provider Ruiz Galan MD Attending Provider Jelly Land DO Attending Provider [phone] Care Teams Patient Care Team Team Status: Active Member Role/Relationship Status Dates Lloyd Mason MD Primary Care Provider Active Visit Care Team Team Status: Inactive Member Role/Relationship Status Dates Lloyd Mason MD Primary Care Provider Active S tart: June 12, 2025 End: June 12, 2025Marc Agusto Mason ProviderActiveStart: June 12, 2025 End: June 12, 2025 Visit Care Team Team Status: Active Member Role/Relationship Status Dates Lloyd Mason MD Primary Care Provider Active S tart: June 21, 2025 Agusto Bell ProviderActiveStart: June 21, 2025 Visit Care Team Team Status: Inactive Member Role/Relationship Status Dates Anna Manzanares MD Attending Provider Active Sta rt: June 21, 2025 End: June 21, 2025 Visit Care Team Team Status: Active Member Role/Relationship Status Dates Lloyd Mason MD Primary Care Provider Active S tart: June 22, 2025 Agusto Hunter ProviderActiveStart: June 22, 2025 Visit Care Team Team Status: Active Member Role/Relationship Status Dates Lloyd Mason MD Primary Care Provider Active S tart: June 22, 2025 Huseyin Lee ProviderActiveStart: June 22, 2025 Arthur Odom MDOther ProviderActiveStart: June 22, 2025 Alexis Curran MDOther ProviderActiveStart: June 22, 2025 Sanaz Astudillo RNOther ProviderActiveStart: June 22, 2025 Sanaz Astudillo RNOther ProviderActiveStart: June 22, 2025 Cesar Bowman MDOther ProviderActiveStart: June 22, 2025 Cristina Olivarezending ProviderActiveStart: June 22, 2025 Dru Tee MDOther ProviderActiveStart: June 22, 2025 Michelle Carwley MDOther ProviderActiveStart: June 22, 2025 Prashanth Gagnon ProviderActiveStart: June 22, 2025 Visit Care Team Team Status: Inactive Member Role/Relationship Status Dates Lloyd Mason MD Primary Care Provider Active S tart: June 29, 2025 End: June 29, 2025Agusto Mahan ProviderActiveStart: June 29, 2025 End: June 29, 2025 Visit Care Team Team Status: Active Member Role/Relationship Status Dates Lloyd Mason MD Primary Care Provider Active S tart: July 10, 2025 Cristina Ruelasending ProviderActiveStart: July 10, 2025 Patient Care Team Team Status: Active Member Role/Relationship Status Dates Lloyd Mason MD Primary Care Provider Active S tart: July 25, 2025 Reece Wong ProviderActiveStart: July 25, 2025 Patient Care Team Team Status: Inactive Member Role/Relationship Status Dates Lloyd Mason MD Primary Care Provider Active S tart: August 28, 2025 End: August 28, [facility]25[facility] ProviderActiveStart: August 28, 2025 End: August 28, 2025 Chief Complaint and Reason for Visit Chief Complaint Admit Date Established Patient June 12, 2025 1:37pm Unknown June 21, 2025 3: 50pm Resp Failure June 22, 2025 1: 50pm Hosp FollowUp June 29, 2025 11 :31am 3M August 28, 2025 2 :19pm Reason for Visit Admit Date Benign essential [...] 2025 1:50pm TYLOR (acute kidney injury) June 22, 025 1:50pm Elevated troponin June 22, 2025 1: [...] June 29, 2025 11:31am Reason for Referral Type Reason(s) Provider Provider Contact Information Jah pope Address Start Date Generalized weakness Weakness acquired in intensive care unit R53.1 - WeaknessYou have been scheduled for a follow up appointment for the following date and time, please call to reschedule if needed.Lloyd Mason MDWork Phone: [phone] [place] [address]Pvujhz Moises Tee MDWork Phone: [phone] [facility], [address] [place] [address].1 - WeaknessDetermined by PatientOctober 2024 Allergies, Adverse Reactions, Alerts Allergen Type Severity Reaction Last Updated Verified Status lisinopril Allergy Unknown Cough August 28, 2025 2:50pm Yes Active Social History Smoking Status Status Start Date End Date Date of Observa tion Current some day smoker August 28, 2025 2:51pm Observation Status Observation Response Date of Response Legal Sex Male (finding) [facility] Family History Relationship Condition Age at Onset Recorded Date/T tamara mother Malignant neoplasm Unknown Problems Active Problems Problem Diagnosis/Recorded Date Onset Date Stat us Weakness acquired in ICU June 29, 2025 11:33am Unk nown Active Benign essential hypertension June 12, 2025 1:4 2pm Unknown Active Dyslipidemia June 12, 2025 1:42pm Unknown Active General weakness June 29, 2025 11:33am Unknown Active Hypersomnia June 12, 2025 1:42pm Unknown Active Type 2 diabetes mellitus wit h diabetic neuropathy, without long-term current use of insulin June 12, 2025 1:51pm Unknown Active Type 2 diabetes mellitus wit h microalbuminuria, without long-term current use of insulin June 12, 2025 1:42pm Unknown Active Type 2 diabetes mellitus wit h hyperglycemia, without long-term current use of insulin June 12, 2025 1:43pm Unknown Active Cigarette smoker June 29, 2025 11:36am Unknown Active Acute cerebral venous sinus thrombosis June 29 11:24am Unknown Active Pneumonia June 22, 2025 6:15pm Unknown Act christopher Class 1 obesity due to exces s calories with serious comorbidity and body mass index (BMI) of 32.0 to 32.9 in adult June 12, 2025 1:49pm Unknown Active Inactive/Resolved Problems Problem Diagnosis/Recorded Date Onset Date Stat us TYLOR (acute kidney injury) June 22, 2025 1:18pm Unk nown Resolved Elevation of levels of liver transaminase levels June 22, 2025 1:18pm Unknown Resolved Obstructive sleep apnea June 23, 2025 9:00am Unkno wn Resolved Thrombosis, superior sagittal sinus June 23, 2025 9:03am Unknown Resolved Hyponatremia June 22, 2025 1:19pm Unknown Res olved Acute respiratory failure wi th hypoxia and hypercapnia June 22, 2025 1:18pm Unknown Resolved Elevated troponin June 22, 2025 1:19pm Unknown Resolved Urinary retention June 22, 2025 1:19pm Unknown Resolved Sepsis June 22, 2025 1:18pm Unknown Res olved Medications Medication Status Dose Units Route Directions Qty Days Refills S tart Date Stop Date End Date Reason(s) Instructions Adherence Gabapentin (Neurontin) 600 mg tablet Active 600 MG PO Daily at bedtime 17 02Oct2024 11:00pmComplies with drug therapyLevofloxacin 750 mg tablet Ddjgaqaaoece875UKOPRlufl at jbcmxos95Nbrghtu 5th, 2025 11:00pmDece2024 2:50pmnext dose 06/26/25 pmRivaroxaban (Xarelto) 20 mg xsbehtGfbdps45WWZONgkmr zclhenw529Ksguduy 5th, 2025 11:00pmmust administer with evening mealComplies with drug therapyTelmisartan 80 mg zmvqiwGysqsq88VMOSTgcbt55.03Oct2024 11:00pmComplies with drug therapyTirzepatide (Mounjaro) 2.5 mg/0.5 mL pen injectorActive2.5MGSUBCUTevery ysqz97PrycnkyzAugust 28, 2025 12:00amfor 4 weeks Complies with drug therapyLosartan 50 mg ohzvwjVweetaitwsii75PRNYJddwlKzcfivjvr 2024 11:00pmOctober 2024 12:01pmSildenafil 50 mg kxcrtvHvgxxhhizedy05 MGPODaily as needed for erectile dysfunctionSept2024 11:00pmOctjames b. [facility] 2024 12:01pmadminister 30 minutes to 4 hours before activityGlipizide 10 mg ivdrbiWkcxta66XSFCLtqssCanyvinsm 21st, 2025 11:00pmComplies with drug therapy Blood Sugar Diagnostic (Blood Glucose Test) stripDiscontinued0.2024 11:00pmOct2024 12:01pmAs directed, check Bs once daily One Touch Ultra 2Lancets miscDiscontinued0.2024 11:00pmOct2024 12:01pmAs directed, One Touch Ultra 2, check BS once dailyBlood Ketone Glucose Monitor deviceDiscontinued0.2024 11:00pmOct2024 12:01pmAs directed, One Touch Ultra 2, check BS once dailySemaglutide (Ozempic) 0.25 mg or 0.5 mg (2 mg/3 mL) pen uvmlwitiTjwtnmgjohng8DKYQGStsxpe yidu06ShpgppgonJune 11, 2025 11:00pmOct2024 12:01pm0.25 mg weekly x 4 weeks, 0.5 mg weeklyGabapentin 300 mg auwvdorTlrdjlaifowb233ZRINAarwu at bedtime 302June 11, 2025 11:00pmOct2024 3:56pmNicotine (Nicoderm Cq) 14 mg/24 hr patch 24 unezBeplpuenkmwq9XEIXBRNYQGUCIUHRqgdg288Zxmpfac 8th, 2025 11:00pmDecember 2024 2:50pmAlbuterol Sulfate 90 mcg/actuation HFA aerosol svazxjkQleauw3MICUOPKKNYSODAZccwc 4 hours as needed for shortness of breath or wheezing8.52Oct2024 11:00pmComplies with drug therapy Procedures Procedure Date Performed Status Urine Culture June 21, 2025 completed Relevant Diagnostic Tests and/or Laboratory Data Laboratory Results Test Collection Date/Time Result Date/Time Result Interpretation Reference Range Result Comment Performing Site B-Type Natriuretic Peptide June 21, 2025 2:10pm June 21, 2025 2:10pm 1334.0 pg/mL Above upper panic limits <=450.0 RESULTS CALLED TO ABDULAZIZ GAVIN RN Absolute Basophils (Manual)June 21, 2025 2:10pmOct2024 2:10pm0.00 10 3/uL0.00-0.10HematocritOctober 2024 2:10pm37.1 %Below low normal 42.0-54.0Ethyl Alcohol LevelOct2024 2:10pmOctober 2024 2:10pm<3 mg/dLNOTE: 80 mg/dl is the legal limit for a blood alcohol levelLactic Acid LevelOct2024 2:10pmOctober 2024 2:10pm1.8 mmol/L0.4-2.0Prothromb Time International RatioOct2024 2:10pmOctober , 2024 2:10pm1.15 DESIRED INR:2.0-3.0 CONDITIONS NOT LISTED BELOW2.5-3.5 FOR PROSTHETIC HEART VALVE REPLACEMENT2.5-3.5 RECURRENT THROMBOSISRSV RNA Qual (PCR)(MISC)June 21, 2025 2:15pmOctober 2024 2:15pmNot DetectedNOT QSAFBLOYFXH-OoN-6 Ag (CV2AG)June 21, 2025 2:15pmOctober 2024 2:15pmNEGATIVENEGATIVEThis test has not been FDA cleared or [...] is revoked sooner.Bedside Influenza Type A AntigenOct2024 2:15pmOctober 2024 2:15pmNegativeNegative for Flu A protein antigen. Infection due to Flu Acannot be ruled out. Flu A antigen in thesample may bebelow the detection limit of the test.Nacho TestOctober 2024 2:28pmOctober 2024 2:28pmPOSITIVE POSITIVEUrine OsmolalityOctober 2024 2:50pmOctober 2024 2:83el124 mOsmol/kg.24 hr : 300 - 900 Random: 50 - 1400 After 12hr fluid restriction: >850Performed at: - [facility] [id number] Director: Leticia Lopez MD, Phone: [phone] Culture ReflexedOctober 2024 2:50pmOctober 2024 2:50pmYES-FRMCUrine Microscopic ReviewOctober 2024 2:50pmYESTroponin I High SensitivityOctober 2024 4:53pmOctober 2024 4:67ny138.8 pg/mLAbove upper panic limits 4.0-76.1RESULTS CALLED TO [...] CONJUNCTIONWITH OTHER DIAGNOSTIC AND CLINICAL INFORMATION.OsmolalityOctober 2024 8:57pmOct2024 8:89jh266 mOsmol/vc286-147Rvfwdauxd at: - [facility] [id number] Director: Leticia Lopez MD, Phone: [phone] GapOct2024 8:57pmOctober 2024 8:57pm17.2Thyroid Stimulating Hormone 3rd GenOct2024 3:57amOct2024 3:57am0.907 u[iU]/mL0.358-3.740Magnesium LevelOctober 2024 3:57am October 2024 3:57am3.7 mg/dLAbove upper panic limits1.8-2.4RESULTS CALLED TO ROMY CARR RN @BY Kaitlyn Hernandez at 0536Phosphorus LevelOctober 2024 3:57amOctober 2024 3:57am5.3 mg/dLAbove high normal2.6-4.7Anion GapOctober 2024 3:57amOctober 2024 3:57am18.2Estimated Average Glucose June 22, 2025 3:57amOctober 2024 3:54yw091 mg/dLHematocritOctober 2024 3:57amOctober 2024 3:57am34.6 %Below low vdokmr46.0-54.0Cortisol AM SampleOctober 2024 3:57amOctober 2024 3:57am39.0 ug/dLAbnormal (applies to non-numeric results)6.2-19.4Performed at: [employer] [place], [place] [id number] Director: Cristobal Benjamin PhD, Phone: [phone] A IgM AntibodyOct2024 3:57amOctober 2024 3:57amNegativeNegativeA negative anti-HAV IgM result suggests no recent orcurrent HAV infection.Nacho TestOctober 2024 4:45amOctober 2024 4:45amPOSITIVEPOSITIVEMiscellaneous TestOctober 2024 9:40amOctober 2024 9:40amCOMMENT.Test Ordered: [id number] Mycoplasma pneumoniaeMycop. pneumoniae by Qual. PCR Comment (M Reference Range: .Reference lab report sent via fax.Performed at: [facility] [address] [place] [id number] Director: Dione Landry MD, Phone: [phone] at: [employer] [address] [place], [place] [id number] Director: Cirstobal Benjamin PhD, Phone: [phone]/Globulin RatioOct2024 11:10am July 10, 2025 11:10am0.6Basophils %June 21, 2025 2:10pmJune 21, 2025 2:10pm0.0 %Below low normal0.2-2.0HemoglobinJune 21, 2025 2:10pm13.6 g/dLBelow low fiqqdc56.0-18.0Albumin/Globulin RatioJune 21, 2025 2:10pm June 21, 2025 2:10pm0.3Prothrombin TimeJune 21, 2025 2:10pmOct2024 2:10pm12.0 secAbove high normal9.0-11.6Bedside Influenza Type B Antigen June 21, 2025 2:15pmOct2024 2:15pmNegativeNegative for Flu B protein antigen. Infection due to Flu Bcannot be ruled out. Flu B antigen in the sample may bebelow the detection limit of the test.Arterial Blood Base Excess June 21, 2025 2:28pmOct2024 2:28pm-1.6 mmol/L<2.0-2.0Urine Other CastsOct2024 2:50pmOct2024 2:50pmSEEN #/LPFAbnormal (applies to non-numeric results)NONE SEENUrine BilirubinJune 21, 2025 2:50pmNEGATIVE NEGATIVEBUN/Creatinine RatioJune 21, 2025 8:57pmJune 21, 2025 8:57pm33.6 Albumin/Globulin RatioJune 22, 2025 3:57amJune 22, 2025 3:57am0.3 Hemoglobin R5iApblrinJune 22, 2025 3:57amJune 22, 2025 3:57am8.4 %Above high normal4.5-6.2ADA RECOMMENDED LIMIT 4.0 - 6.0ADA THERAPEUTIC TARGET < 7.0ACTION SUGGESTED> 7.0HemoglobinJune 22, 2025 3:57amJune 22, 2025 3:57am12.1 g/dLBelow low ajdjtm31.0-18.0Hepatitis B Surface AntigenJune 22, 2025 3:57am June 22, 2025 3:57amNegativeNegativeArterial Blood Base ExcessJune 22, 2025 4:45amJune 22, 2025 4:45am-5.5 mmol/LBelow low normal<2.0-2.0Albumin July 10, 2025 11:10amOctober 2024 11:10am2.7 g/dLBelow low normal 3.4-5.0Eosinophils # (Manual)June 21, 2025 2:10pmOctober 2024 2:10pm 0.00 10 3/uL0.00-0.70Mean Corpuscular HemoglobinOct2024 2:10pm33.4 pg 25.9-34.0AlbuminJune 21, 2025 2:10pmOctober 2024 2:10pm1.7 g/dLBelow low normal3.4-5.0Arterial Blood ORQ2Lzrhyyt2024 2:28pmOctober 2024 2:28pm23.5 mmol/L22.0-26.0Urine Other CrystalsJune 21, 2025 2:50pmOctober 2024 2:50pmSeen #/HPFAbnormal (applies to non-numeric results)None Seen Urine Occult BloodJune 21, 2025 2:50pmLARGEAbnormal (applies to non-numeric results)NEGATIVEBlood Urea NitrogenJune 21, 2025 8:57pmOct2024 8:57pm41.0 mg/dLAbove high normal7.0-18.0AlbuminJune 22, 2025 3:57amOctober 2024 3:57am1.4 g/dLBelow low normal3.4-5.0Mean Corpuscular Hemoglobin June 22, 2025 3:57amOctober 2024 3:57am33.3 pg25.9-34.0Hepatitis B Core IgM AntibodyJune 22, 2025 3:57amOctober 2024 3:57amNegativeNegative Blood Gas Mode BiPAPJune 22, 2025 4:45amOctober 2024 4:45am16/8Alkaline PhosphataseJuly 10, 2025 11:10amOctober 2024 11:83fd242 U/LAbove high -126Cksgmgjuxlx %June 21, 2025 2:10pmOctober 2024 2:10pm 0.0 %Below low normal0.9-7.0Mean Corpuscular Hemoglobin ConcentOctober 2024 2:10pm36.7 g/dLAbove high bstseg43.9-35.2Alkaline PhosphataseOctober 2024 2:10pmOctober 2024 2:98cv008 U/LAbove high llsixq58-837Updnp Gas Liter Flow June 21, 2025 2:28pmOctober 2024 2:60us1Awvgu Amorphous SedimentOct2024 2:50pmOctober 2024 2:50pmFEWUrine AppearanceOctober 2024 2:50pmCLEARCLEARCalcium LevelOctober 2024 8:57pmOctober 2024 8:57pm7.3 mg/dLBelow low normal8.5-10.1Alkaline PhosphataseOctober 2024 3:57am June 22, 2025 3:21hn420 U/LAbove high -992Jywv Corpuscular Hemoglobin ConcentOctober 2024 3:57amOctober 2024 3:57am35.0 g/dL 29.9-35.2Hepatitis C AntibodyOctober 2024 3:57amOctober 2024 3:57amNon ReactiveNon YtqclscfJiF7Tvcagpw 2nd, 2025 4:45amOctober 2024 4:45am40 % Alanine Aminotransferase (ALT/SGPT)July 10, 2025 11:10amOctober 2024 11:10am36 U/P27-57Ugbommhxezn # (Manual)June 21, 2025 2:10pmOctober 2024 2:10pm0.43 10 3/uLBelow low normal1.20-3.80Mean Corpuscular VolumeOctober 2024 2:10pm91.2 fL80.0-94.0Alanine Aminotransferase (ALT/SGPT)June 21, 2025 2:10pmOctober 2024 2:10pm84 U/LAbove high akpvxz04-69Zsnfhi Delivery DeviceOctober 2024 2:28pmOctober 2024 2:28pmNCUrine BacteriaOctober 2024 2:50pmOctober 2024 2:50pmSMALL #/HPFAbnormal (applies to non- numeric results)NONE SEENUrine ColorOct2024 2:50pmYELLOWYELLOWChloride LevelOct2024 8:57pmOctober 2024 8:57pm89 mmol/LBelow low normal 98-107Blood Gas Liter FlowOct2024 2:06amOct2024 2:06am40 Alanine Aminotransferase (ALT/SGPT)June 22, 2025 3:57amOctober 2024 3:57am81 U/LAbove high lpoayy21-44Uarb Corpuscular VolumeOct2024 3:57amOctober 2024 3:57am95.3 fLAbove high zhhebc89.0-94.0Hepatitis B Interpretation.June 22, 2025 3:57amOctober 2024 3:57amComment.Not infected with HCV unless early or acute infection issuspected (which may be delayed in an immunocompromisedindividual), or other evidence exists to indicate HCVinfection.Performed at: - [facility] [id number] Director: Cristobal Benjamin PhD, Phone: [phone] Blood WTU7Drficpu2024 4:45amJune 22, 2025 4:45am21.9 mmol/LBelow low normal 22.0-26.0Aspartate Amino Transf (AST/SGOT)July 10, 2025 11:10amOctober 2024 11:10am29 U/H03-68Yaaldaihbiu %June 21, 2025 2:10pmOct2024 2:10pm2.0 %Below low vfsurg58.5-60.0Mean Platelet VolumeJune 21, 2025 2:10pm11.2 fL9.5-13.5Aspartate Amino Transf (AST/SGOT)June 21, 2025 2:10pm June 21, 2025 2:89ab249 U/LAbove high ysabot65-48Ejaffump Blood Oxygen SaturationOct2024 2:28pmOct2024 2:28pm97.3 %Urine Coarse Granular CastsOct2024 2:50pmOct2024 2:50pmMODERATEUrine Glucose (UA)June 21, 2025 2:50pmNEGATIVE mg/dLNEGATIVECarbon Dioxide Level June 21, 2025 8:57pmOct2024 8:57pm21.3 mmol/L21.0-32.0Aspartate Amino Transf (AST/SGOT)June 22, 2025 3:57amOct2024 3:85af441 U/L Above high btrinw50-50[place]oui Platelet VolumeJune 22, 2025 3:57amOct2024 3:57am11.1 fL9.5-13.5Oxygen Delivery DeviceOct2024 4:45amOct2024 4:45amBIPAPDirect BilirubinJuly 10, 2025 11:10amOctober 2024 11:10am0.1 mg/dL0.0-0.2Monocytes # (Manual)June 21, 2025 2:10pmOct2024 2:10pm0.87 10 3/uLAbove high normal0.30-0.80Platelet CountJune 21, 2025 2:70wo226 10 3/vD906-737Awrboijk Blood Partial Pressure YW5AjagkhhJune 21, 2025 2:28pmOct2024 2:28pm39.2 mm[Hg]35.0-45.0Urine Hyaline Casts June 21, 2025 2:50pmOct2024 2:50pmRAREUrine KetonesOct2024 2:50pmTRACE mg/dLAbnormal (applies to non-numeric results)NEGATIVE CreatinineJune 21, 2025 8:57pmOct2024 8:57pm1.22 mg/dL0.70-1.30 BUN/Creatinine RatioJune 22, 2025 3:57amOct2024 3:57am32.0Platelet CountJune 22, 2025 3:57amOct2024 3:67xr000 10 3/wG979-808Mnjlopwf Blood Oxygen SaturationJune 22, 2025 4:45amOctober 2024 4:45am96.5 % GlobulinOct2024 11:10amOctober 2024 11:10am4.9 g/dLMonocytes % June 21, 2025 2:10pmOctober 2024 2:10pm4.0 %1.7-12.0Red Blood Count June 21, 2025 2:10pm4.07 10 6/uLBelow low normal4.70-6.10Arterial Blood pH June 21, 2025 2:28pmOctober 2024 2:28pm7.3857.350-7.450Urine Mucus June 21, 2025 2:50pmOctober 2024 2:50pmTRACEAbnormal (applies to non- numeric results)NONE SEENUrine Leukocyte EsteraseOct2024 2:50pmTRACE Abnormal (applies to non-numeric results)NEGATIVEEstimated GFR ()June 21, 2025 8:57pmOctober 2024 8:57pm>60>=60 mL/min/1.73m 2 Blood Urea NitrogenOct2024 3:57amOctober 2024 3:57am57.0 mg/dL Above high normal7.0-18.0Red Blood CountOct2024 3:57amOctober 2024 3:57am3.63 10 6/uLBelow low normal4.70-6.10Arterial Blood Partial Pressure VG3GbxuzrdJune 22, 2025 4:45amOctober 2024 4:45am51.0 mm[Hg]Above upper panic gurvdz85.0-45.0RESULTS CALLED TO ROMY CARR RN @BY Kaitlyn Hernandez at 0557Total BilirubinOct2024 11:10amOctober 2024 11:10am0.4 mg/dL0.2-1.0Segmented Neutrophils # (Manual)June 21, 2025 2:10pmOctober 2024 2:10pm20.49 10 3/uLAbove high normal1.4-6.5Red Cell Distribution Width June 21, 2025 2:10pm12.3 %11.0-15.0Arterial Blood Partial Pressure T2Yxzjedp2024 2:28pmOctober 2024 2:28pm81.8 mm[Hg]80.0-100.0Urine RBCOctober 2024 2:50pmOctober 2024 2:71py5-4 #/HPFAbnormal (applies to non- numeric results)0-2Urine NitriteOctober 2024 2:50pmNEGATIVENEGATIVE Estimated GFR (Non- AmericanOctober 2024 8:57pmOctober , 2024 8:57pm>60>=60 mL/min/1.73m 2Calcium LevelOctober 2024 3:57amOctober 2024 3:57am7.5 mg/dLBelow low normal8.5-10.1Red Cell Distribution WidthOctober 2024 3:57amOctober 2024 3:57am13.1 %11.0-15.0Arterial Blood pHOctober 2024 4:45amOctober 2024 4:45am7.240Below lower panic limits7.350-7.450 RESULTS CALLED TO ROMY CARR RN @BY Kaitlyn Hernandez at 0557Total ProteinOctober 2024 11:10amOctober 2024 11:10am7.6 g/dL6.4-8.2 Segmented NeutrophilsOct2024 2:10pmOct2024 2:10pm94.0Above high zzlssi23.0-75.0Corrected White Blood CountOctober 2024 2:10pm21.8 10 3/uLAbove high normal4.0-11.0Blood Gas Sample SiteOct2024 2:28pm June 21, 2025 2:28pmLRUrine Squamous Epithelial CellsOctober 2024 2:50pmOctober 2024 2:50pmFEW #/LPFAbnormal (applies to non-numeric results) NONE/RAREUrine pHOctober 2024 2:50pm6.05.0-9.0Glucose LevelOctober 2024 8:57pmOctober 2024 8:78is647 mg/dLAbove high -117Tmwbdipu LevelOctober 2024 3:57amOctober 2024 3:57am93 mmol/LBelow low normal 98-107Corrected White Blood CountOctober 2024 3:57amOctober 2024 3:57am23.4 10 3/uLAbove high normal4.0-11.0Arterial Blood Partial Pressure O2 June 22, 2025 4:45amOctober 2024 4:45am84.7 mm[Hg]80.0-100.0Urine WBC June 21, 2025 2:50pmOctober 2024 2:16gi8-3 #/HPFAbnormal (applies to non-numeric results)NONE SEENUrine ProteinOctober 2024 2:54sb163 mg/dL Abnormal (applies to non-numeric results)NEG/TRACEPotassium LevelOctober 2024 8:57pmOctober 2024 8:57pm3.5 mmol/L3.5-5.1Carbon Dioxide LevelOctober 2024 3:57amOctober 2024 3:57am21.4 mmol/L21.0-32.0Blood Gas Sample SiteOct2024 4:45amOctober 2024 4:45amL RADIALUrine Specific GravityJune 21, 2025 2:50pm1.0251.005-1.025Sodium LevelOct2024 8:57pmOctober 2024 8:93sp207 mmol/LBelow lower panic utiias936-093JRIVHLU CALLED TO ROMY CARR, RNCreatinineOct2024 3:57amOct2024 3:57am1.78 mg/dLAbove high normal0.70-1.30Urine UrobilinogenOctober 2024 2:50pm1.0 EU/dL0.2-1.0Estimated GFR ()June 22, 2025 3:57am June 22, 2025 3:35hi03Zcdpv low normal>=60 mL/min/1.73m 2Estimated GFR (Non- AmericanOct2024 3:57amOct2024 3:11es33Kolqt low normal>=60 mL/min/1.73m 2GlobulinOct2024 2:10pmOct2024 2:10pm5.6 g/dLGlobulinOctober 2024 3:57amOctober 2024 3:57am5.3 g/dL Glucose LevelOctober 2024 3:57amOctober 2024 3:62qj576 mg/dLAbove high osxdwz86-243Sooozotgj LevelOctober 2024 3:57amOctober 2024 3:57am4.6 mmol/L3.5-5.1Sodium LevelOctober 2024 3:57amOctober 2024 3:27hk137 mmol/LBelow low bqcxek756-941Rkojp BilirubinOctober 2024 2:10pmOctober 2024 2:10pm0.6 mg/dL0.2-1.0Total BilirubinOctober 2024 3:57amOctober 2024 3:57am0.6 mg/dL0.2-1.0Total ProteinOctober 2024 2:10pmOctober 2024 2:10pm7.3 g/dL6.4-8.2Total ProteinOctober 2024 3:57amOctober 2024 3:57am6.7 g/dL6.4-8.2 Microbiology Results Procedure Source Result Collection Date/Time Result Date/Time Result Comment Performing Site Urine Culture Urine, Clean-Voided Midstream No Growth 2 Days June 21, 2025 3:50pm June 24, 2025 10:38am [facility] [id number] [address] [place] [address] Vital Signs Vital Reading Result Reference Range Collection Date/Time Height 70 [in_i] June 12, 2025 1:17imNhpiet816.13 kgSeptember 2024 1:12pmBody Jaokmuhkuzc12.1 [degF]97.6-99.0September 2024 1:12pmHeart Boat010 /min 60-100September 2024 1:12pmRespiratory rate18 /gwi64-67Ztucufexx 2024 1:12pmOxygen saturation by Pulse %95-100September 2024 1:12pmBP Kkfsdhzk579 mm[Hg]100-140September 2024 1:12pmBP Dbwaibifg15 mm[Hg]60-100September 2024 1:12pmBMI (Body Mass Index)32.6 kg/i5Dolurnltg 2024 1:08axHoaoeo98 [in_i]June 26, 2025 1:40mkQggvmt241.00 kgOctober 2024 4:23amBody Kguepqandfl07.4 [degF]97.6-99.0Oct2024 2:11pm Heart Updw995 /ayw14-955Qbwdgsv 6th, 2025 2:11pmRespiratory rate18 /aga26-99 June 26, 2025 2:11pmOxygen saturation by Pulse wmtucwos19 %95-100Oct2024 2:11pmBP Sozeekfn557 mm[Hg]100-140Oct2024 2:11pmBP Diastolic 80 mm[Hg]60-100Oct2024 2:11pmInhaled oxygen rjejdbvvqyugh24 %June 25, 2025 11:00pmInhaled oxygen flow rate2 L/minOct2024 9:82ctTgxaql69 [in_i]June 29, 2025 11:46rgNlgqog19.25 kgJune 29, 2025 11:03amBody Mxzfchcsvgp71.1 [degF]97.6-99.0Oct2024 11:03amHeart Ggtm967 /cdv31-400 June 29, 2025 11:03amRespiratory rate20 /mlz59-87YuutufcJune 29, 2025 11:03am Oxygen saturation by Pulse sxdstrux69 %95-100Oct2024 11:03amBP Xayuuzfk006 mm[Hg]100-140June 29, 2025 11:03amBP Psvikhtdr62 mm[Hg]60-100 June 29, 2025 11:03amBMI (Body Mass Index)30.1 kg/q2Cynmyme2024 11:92slStzmqw82 [in_i]August 28, 2025 2:52mwZxmbwo471.41 kgDecember 2024 2:49pmBody Emzzijubvhu40.5 [degF]97.6-99.0Deceer 2024 2:49pmHeart Rate 115 /uip35-564Wbvjqpys 2024 2:49pmRespiratory rate18 /iiv62-77Nyjuvdlv 8th, 2025 2:49pmOxygen saturation by Pulse gipaeldo85 %95-100Dece2024 2:49pmBP Ggtduoee648 mm[Hg]100-140Decemb2024 2:49pmBP Bcrtycmdf76 mm[Hg] 60-100December 2024 2:49pmBMI (Body Mass Index)32.7 kg/u5GifitzysAugust 28, 2025 2:49pm Advance Directives Advance Directive Response Recorded Date/ Time Advance Directives No August 6:33pm Insurance Providers Guarantor Reymundo Patino Address [address] [address]Quuvlpi Info.Home Phone: Coverage Status Update:2025 Payer Group Member ID Coverage Type Subscriber Relationship to Subscriber Effective Date Expiration Date Marissa SPARROW Id: [id number] L Falter Id: [id number] [facility] [address] Home Phone: Email: [email or web address] Encounters Encounter Location(s) Arrival/Admit Date Discharge/Departure Date Discharge/Departure Disposition Provider(s) Departed Physician/ Provider Office Visit -[facility] [place] June 12, 2025 1:37pm June 12, 2025 2:59pm Discharged to home care or self care (routine discharge) Lloyd Mason MD Non-patient / Non-visit -[facility] O ctober 2024 3:28pm [place] [facility] 3:50pmOctober 2024 3:51pmDischarged to home care or self care (routine discharge)Horacio Bell-patient / [facility] June 22, 2025 3:06amHoracio Hunter-patient / Jbg[facility]dqfrl[facility]Oct2024 1:50pmGeorge Moises Tee , MDDeparted Physician/Provider Office Visit-[facility] Family Medicine [facility] 2024 11:31amOctober 2024 12:41pmDischarged to home care or self care (routine discharge)Horacio Mahan-patient / Mfi[facility]lsnun[facility] July 10, 2025 12:10pmHoracio Ruelas-patient / Nzq[facility]ql[facility]va[facility] 20[facility] 11:59pmNicchristine Land DODeparted Physician/Provider Office Visit-[facility] Family Medicine [facility] 2024 2:[facility] 2024 3:10pmDischarged to home care or self care (routine discharge)Lloyd Mason MD Recent Diagnosis Onset Date Admit [...] 2025 1:50pm Urinary retention Unknown June 22 1:50pm Acute cerebral venous sinus thrombosis Unknown [...] and hypercapniaresolvedOctober 2024 1:50pmAKI (acute kidney injury) resolvedOctober 2024 1:50pmElevated troponinresolvedOctjames [facility]. [facility] 2024 1:50pmElevation of levels of liver transaminase [...] 11:31am Plan of Treatment Author Lloyd Mason [facility] HospitalAuthoredSeptember 2024 3:55pmReports BS remains elevated and add ozempic. Stick [...] minutes at a time. Author Lloyd Mason [facility] HospitalAuthoredOctober 2024 12:08pmSevere weakness after prolonged hospital stay and start [...] Future Visits Future appointment information is unavailable Future Procedures Procedure Name Ordered Date Scheduled Date Admit Status Order June 22, 2025 1:24pm Octo rolando 2024 1:24pm Consult to Case Management June 22, 2025 2:1 9pm June 22, 2025 2:19pm Discharge Order June 26, 2025 12:04pm Octobe r 2024 12:04pm Consult to Neurosurgery June 23, 2025 6:49am June 23, 2025 6:49am Consult to Pulmonology June 22, 2025 1:24pm June 22, 2025 1:24pm Consult to Pulmonology June 22, 2025 1:08pm June 22, 2025 1:08pm Future Medications Future medication information is unavailable Patient Instructions Instruction Admit Date Community-acquired pneumonia in adults How to take anticoagulants safely Know your MedsOctober 2024 1:50pm
--- OUTSIDE RECORDS SUMMARY | 2025-09-11 19:51 | XMS_ITS | Clinical Summary ---
Author Organization [facility] Address [address] [place] [address] Care Team Providers Care Core Microarchitect Name Role Phone Lloyd Mason MD Primary Care Provider [phone] Allergies Active AllergyReactionsCriticalityNoted CinaGcdmqtegYecujffrjaIjocu45/29/2023 Medications MedicationSigDispense QuantityRefillsLast FilledStart DateEnd DateStatus naproxen (EC Naprosyn) 500 MG EC tablet Take 500 mg by mouth in the morning and 500 mg in the evening. Take with meals. Do not crush, chew,or split. .Active Blood Glucose Monitoring Suppl device 1 Device 1 (one) time each day.Active OneTouch Ultra test strip USE 1 STRIP DAILY09/08/2022ctive Lancets (OneTouch Delica Plus Zxxlhb84I) misc USE ONCE DAILY09/08/2022ctive Blood Glucose Monitoring [...] (50 mg) by mouth Daily 100 tablet 502/6Active sildenafil (Viagra) 50 MG tablet Indications:Erectile dysfunction, unspecified erectile dysfunction typeTAKE 1 TABLET (50 MG) BY MOUTH DAILY 30 tablet 5Active Active Problems ProblemNoted DateDiagnosed DateType 2 diabetes mellitus with diabetic microalbuminuria, without long-term current use of bqwbiay5803/20/2025Dyslipidemia 02/02/20258000Ketuzxylphx65/15/2025 Assessment & Plan (02/02/2025 3:25 PM EDT): Signs of VERONA and check sleep study. Primary /29/2023 Assessment & Plan (02/02/2025 3:25 PM EDT): [...] with hyperglycemia, without long-term current use of xsxzsnq0208/19/2023 Assessment & Plan (02/02/2025 3:25 PM EDT): [...] to help with weight loss Abnormal liver acgiuoq9908/19/2023 Assessment & Plan (08/19/2023 4:31 PM EST): Abnormal liver enzymes - AST/ALT in 200 previously when he had labs but follow up testing and labs were not done by patient. Will check Liver enzymes to monitor/ and follow up. US liver in 22 -- NAFLD. Tobacco atrqnanvpq72/29/2023 Assessment & Plan (08/19/2023 4:32 PM EST): [...] - has hx of T2DM, obesity. Erectile xnsvwjnxmib77/29/2023 Assessment & Plan (08/19/2023 4:33 PM EST): [...] that should help with weight loss too. Family History Medical HistoryRelationNameCommentsDiabetesFatherCancerMotherRelationNameStatus CommentsFatherAliveMotherAlive Social History Tobacco UseTypesPacks/DayYears UsedDateSmoking Tobacco: Every DayCigarettes0.510 Smokeless Tobacco: Never Tobacco Cessation:Ready to Q uit: Yes; Counseling Given: Yes Alcohol UseStandard Drinks/WeekCommentsYes0 (1 standard drink = 0.6 oz pure alcohol)OCCASSIONALLYSex and Gender InformationValueDate RecordedSex Assigned at BirthNot on fileLegal TloHqco6806/17/2023 2:29 PM EDTGender IdentityNot on file Sexual OrientationNot on file Last Filed Vital Signs Vital SignReadingTime TakenCommentsBlood Pkvttrth614/66002/02/2025 1:26 PM EDT Npggd01435/15/2025 1:26 PM ZDGQyvvhhhsxph64.2 ??C (97.1 ??F)02/02/2025 1:26 PM EDTRespiratory Vxva204402/02/2025 1:26 PM EDTOxygen Pcuqpfdwzy21%02/02/2025 1:26 PM EDTInhaled Oxygen Concentration--Nniifr51.5 kg (215 lb)02/02/2025 1:26 PM EDT Izbofi144.8 cm (5' 10 )02/02/2025 1:26 PM EDTBody Mass Index30.85002/02/2025 1:26 PM EDT Plan of Treatment Health MaintenanceDue DateLast DoneCommentsDiabetes: Hemoglobin A1C1983 Diabetes: Retinopathy Rhfojsyvx04/26/1993Pneumococcal Vaccine: Pediatrics (0 to 5 Years) and At-Risk Patients (6 to 64 Years) (1 of 2 - PCV)2002COVID-19 Vaccine (3 - season)/10/2020, 06/01/2021Influenza Vaccine (#1)2025Diabetes: Urine Protein Okjbcfbky85 Insurance Care Teams Team MemberRelationshipSpecialtyStart DateEnd Date Lloyd Mason MD PCP - GeneralFamily Medicine10/19/24
--- OUTSIDE RECORDS SUMMARY | 2025-09-11 19:51 | XMS_ITS | Clinical Summary ---
Author Organization [facility] Address [id number] [address] [place] [address] Care Team Providers Care Umbrella Mender Name Role Phone Unavailable Primary Care Provider Unavailabl e Encounters DateTypeDepartmentCare NricUvdfygawrnk57/09/2025Telephone [facility] Division of [facility] - Sleep Disorders [address] [place] [address] Lloyd Mason MD Sleep Lab (Psg Order)06/23/2025 2:16 PM EDT - 06/25/2025 7:14 AM EDTEmergency [facility] [address] [place] [phone] Discharge Disposition: Telemedicine Pbnewzcxo78/03/2025Orders Only [facility] [address] [place] [id number] External, Scanning Provider Pain (Primary Dx)06/22/2025 5:55 PM EDTAncillary Procedure [facility] [address] [place] [address] Pain06/21/2025 5:10 PM EDTAncillary Procedure [facility] [place] [address] Painfrom Last 3 Months Social History Tobacco UseTypesPacks/DayYears UsedDateSmoking Tobacco: Never AssessedChildcare AnswerDate CcawmwjfAdksqljrqYmpdsjd65/12/2019EmploymentAnswerDate Recorded HagowkrfgwOvtztlv40/12/2019Sex and Gender InformationValueDate RecordedSex Assigned at BirthNot on fileLegal BwrQhyt0004/26/2015 11:57 AM EDTGender Identity Not on fileSexual OrientationNot on file Plan of Treatment Health MaintenanceDue DateLast DoneCommentsDepression Qfswyjvda77/26/1995Tobacco Cnygebjqj44/26/1995Adult BMI Fockwoqpo97/26/2001DTaP,Tdap and Td Vaccines (1 - Tdap)2002Influenza Zjjgfyl4505/22/2025 Medical Devices Not on file Procedures Procedure NamePriorityDate/TimeAssociated DiagnosisCommentsMR MRV HEAD WO CONT Rfdkdhe8606/22/2025 5:[address] BRAIN WO ZLCHCzvvixj45/01/2025 5:10 PM EDT Pain from Last 3 [...]
== END 2025-09-11 19:48 | disposition home or self-care (01) ==
PROVIDERS: PCP Family Medicine; Visit Provider Family Medicine
DX: G47.33 Obstructive sleep apnea (adult) (pediatric) (principal)
CPT/HCPCS: 95806